=== PATIENT | female | born 1965 | race African-American/Black ===

== ENCOUNTER 2017-04-26 00:54 | Emergency (ER) | payer OTHER ==
[~2017-04-26 00:54] MED LIST: ALPR1TAB6 PO; BUPR-192 PO; ESCITALOPRAM OX10 MG PO; ESTR1TAB76 PO; HYDR25TA PO; LAMO100T PO; LEVO125T5 PO; OLME1TAB31 PO; ZIPR40CA3 PO; ZOLP12.54 PO
[2017-04-26 01:05] VITALS: BP 137/68
--- NOTE | 2017-04-26 02:01 | RAD ---
EXAM: CT head without contrast HISTORY: fall, hit back of head, headache COMPARISON: None. TECHNIQUE: Computed tomographic images of the head were obtained without contrast. PQRS compliance statement: One or more of the following individualized dose reduction techniques were utilized for this examination: 1. Automated exposure control 2. Adjustment of the mA and/or kV according to patient size 3. Use of iterative reconstruction technique FINDINGS: There is no acute intracranial process identified. Specifically, there are no intracranial blood products, extra-axial fluid collections, mass effect or midline shift. Ventricles and basilar cisterns are maintained. The visualized portions of the orbits, paranasal sinuses and mastoid air cells are unremarkable. Overlying scalp and calvarium are intact. A mildly heterogenous appearance of the calvarium is demonstrated, may be secondary to osteopenia. Subcentimeter lucent lesion seen within the left frontal calvarium. IMPRESSION: 1. No acute intracranial findings. 2. A subcentimeter lucent lesion is present in the left frontal calvarium. This may represent a benign or malignant lesion, or secondary to heterogeneity present which can be seen with osteopenia. Electronically signed by: Luciana Aguila MD (04/26/2017 1:57 AM)
--- NOTE | 2017-04-26 02:59 | PHYS DOC ---
Past History Past Medical History: Bipolar, Hypertension, Hypothyroid Past Surgical History: Smoking: Non-smoker Alcohol Use: None Drug Use: None Adult General Chief Complaint Chief Complaint: MECHANICAL FALL HPI HPI 51-year-old female now presents the emergency department after slipping and falling down some steps. She states she hit the back of her head. Mild headache since. No loss of consciousness. Normal painless range of motion of her neck. Patient states she also bumped her shoulder and that's been sore. Normal use of her upper extremities bilaterally and no other complaints. She does not take blood thinners and has no bone or bleeding problems Review of Systems Review of Systems Constitutional: Denies fever or chills [] Eyes: Denies change in visual acuity, redness, or eye pain [] HENT: Denies nasal congestion or sore throat [] Respiratory: Denies cough or shortness of breath [] Cardiovascular: No additional information not addressed in HPI [] GI: Denies abdominal pain, nausea, vomiting, bloody stools or diarrhea [] : Denies dysuria or hematuria [] Musculoskeletal: Denies back pain or joint pain [] Integument: Denies rash or skin lesions [] Neurologic: Denies headache, focal weakness or sensory changes [] Endocrine: Denies polyuria or polydipsia [] Allergies Allergies Allergies Coded Allergies Type Severity Reaction Last Updated Verified codeine Allergy Intermediate rash 05/11/14 No latex Allergy Intermediate rash 05/11/14 No Physical Exam Physical Exam Alert well appearing no acute distress. Normocephalic atraumatic. Normal TMs bilaterally nontender C-spine with normal painless range of motion. No scalp swelling or tenderness. Soft tissue tenderness left shoulder area however no bony tenderness deformity ecchymosis soft tissue swelling. No before meals tenderness. Nontender elbow and wrist with normal painless range of motion. No scapular bony tenderness and no crepitus or subcutaneous air Constitutional: Well developed, well nourished, no acute distress, non-toxic appearance. [] HENT: Normocephalic, atraumatic, bilateral external ears normal, oropharynx moist, no oral exudates, nose normal. [] Eyes: PERRLA, EOMI, conjunctiva normal, no discharge. [] Neck: Normal range of motion, no tenderness, supple, no stridor. [] Cardiovascular:Heart rate regular rhythm, no murmur [] Lungs & Thorax: Bilateral breath sounds clear to auscultation [] Abdomen: Bowel sounds normal, soft, no tenderness, no masses, no pulsatile masses. [] Skin: Warm, dry, no erythema, no rash. [] Back: No tenderness, no CVA tenderness. [] Extremities: No tenderness, no cyanosis, no clubbing, ROM intact, no edema. [] Neurologic: Alert and oriented X 3, normal motor function, normal sensory function, no focal deficits noted. [] Psychologic: Affect normal, judgement normal, mood normal. [] Current Patient Data Vital Signs Vital Signs Date Time Temp Pulse Resp B/P (MAP) Pulse Ox O2 Delivery O2 Flow Rate FiO2 04/26/17 01:05 98.2 96 20 94 Room Air EKG EKG [] Radiology/Procedures Radiology/Procedures [] Course & Med Decision Making Course & Med Decision Making Pertinent Labs and Imaging studies reviewed. (See chart for details) Signs and symptoms consistent with contusion left shoulder with negative x-ray. Normal use and range of motion. History and findings also consistent with minor head injury and CT of the head unremarkable. No evidence of concussion or postconcussive syndrome. Discussed with patient incidental finding of possible small left frontal mass and need for MRI in follow-up with PCP to rule out possibility of cancer or other etiology discussed with patient is unclear if there is a mass at all but that MRI is critical and ordered to determine this and specifically to rule out the possibility of cancer and patient agrees that outpatient follow-up and strict return precautions given [] Dragon Disclaimer Dragon Disclaimer This chart was dictated in whole or in part using Voice Recognition software in a busy, high-work load, and often noisy Emergency Department environment. It may contain unintended and wholly unrecognized errors or omissions. Departure Departure: Impression: Primary Impression: Minor head injury without loss of consciousness Additional Impressions: Contusion of left shoulder Intracranial mass Disposition: 01 HOME, SELF-CARE Condition: STABLE Referrals: SOPHIA GLOVER DO, [facility] (PCP) Patient Instructions: Contusion, Head Injury, Adult Additional Instructions: Her CAT scan of the head does not show any evidence of bleeding or fracture tonight. Resume incidental finding on your CAT scan of the head which suggested the possibility of a small mass in your left frontal brain area. It is important to follow up with your doctor to arrange an MRI to see if there is actually a mass there and if so, what the nature and extent of it it is. We've given you a copy of the CT result to follow up with your doctor to arranged this MRI with contrast as discussed. The x-ray of your left shoulder showed no fracture and your physical findings suggest a contusion or bruise of that area. Apply ice as needed and take ibuprofen 800 mg every 6 hours as needed for pain. Follow-up with your doctor in 1-2 days and return immediately for new severe or worsening symptoms Problem Qualifiers DAYLIN PENA MD Apr 26, 2017 02:59
--- NOTE | 2017-04-26 07:15 | RAD ---
Indication: Fall and left shoulder pain. Time of exam 0132 hours. 2 views of the left shoulder were obtained. The glenohumeral and acromioclavicular alignment are normal. The acromiohumeral space is normal. No fracture or dislocation is detected. Impression: No acute bony abnormality is detected.
== END 2017-04-26 03:13 | disposition home or self-care (01) ==
LOC: ER 00:54
DX: S09.8XXA Other specified injuries of head, initial encounter (principal); S40.012A Contusion of left shoulder, initial encounter; G93.89 Other specified disorders of brain; E03.9 Hypothyroidism, unspecified; I10 Essential (primary) hypertension; Z88.5 Allergy status to narcotic agent; Z91.040 Latex allergy status; W10.8XXA Fall (on) (from) other stairs and steps, initial encounter; Y93.89 Activity, other specified; Y99.8 Other external cause status; Y92.89 Other specified places as the place of occurrence of the external cause
CPT/HCPCS: 70450; 73030; 99284-25

== ENCOUNTER 2017-10-29 15:49 | Emergency (ER) | payer OTHER ==
[~2017-10-29] VITALS: Ht 175.3 cm; Wt 104.3 kg
--- NOTE | 2017-10-29 16:25 | ED.ADGEN ---
Past History Past Medical History: Bipolar, Hypertension, Hypothyroid (SARA LANDA DO) Past Surgical History: (SARA LANDA DO) Smoking: Non-smoker Alcohol Use: None Drug Use: None (SARA LANDA DO) Adult General Chief Complaint Chief Complaint Facial pain, cough, chest pressure (SARA LANDA DO) HPI HPI Patient is a 52-year-old -Greek female presents with nasal congestion , rhinorrhea, occasional cough and chest pressure. Symptoms began several days ago. Patient was seen by her PCP 2 days ago and office. Influenza test was performed at that time was negative. Patient has been taking [id number]-[id number] pain medication with limited proved symptoms. Denies tactile fever, nausea, vomiting, chills and sweats. no history of asthma, COPD, CAD, CHF. Patient is a nonsmoker. She is accompanied at bedside by spouse.[] (SARA LANDA DO) Review of Systems Review of Systems Review symptoms as per history of present illness. All other review symptoms are negative. [] All other systems were reviewed and found to be within normal limits, except as documented in this note. (SARA LANDA DO) Current Medications Current Medications Current Medications Medications (Trade) Dose Ordered Sig/Kristy Start Time Stop Time Status Last Admin Dose Admin Aspirin (Aspirin Enteric Coated) 325 mg 1X ONCE 10/29/17 17:45 10/29/17 17:46 DC 10/29/17 17:35 325 MG Hydromorphone HCl (Dilaudid) 1 mg 1X ONCE 10/29/17 19:30 10/29/17 19:31 DC 10/29/17 19:37 1 MG Iohexol (Omnipaque 300 Mg/ml) 75 ml 1X ONCE 10/29/17 19:00 10/29/17 19:01 DC 10/29/17 19:16 75 ML Nitroglycerin (Nitrostat) 0.4 mg 1X ONCE 10/29/17 17:45 10/29/17 17:46 DC 10/29/17 17:49 0.4 MG Oxycodone/ Acetaminophen (Percocet 10/325) 1 tab 1X ONCE 10/29/17 16:45 10/29/17 16:46 DC 10/29/17 16:29 1 TAB Sodium Chloride 1,000 ml @ 1,000 mls/hr 1X ONCE 10/29/17 18:45 10/29/17 19:44 DC 10/29/17 18:45 1,000 MLS/HR (ANGY LOWE MD) Allergies Allergies Allergies Coded Allergies Type Severity Reaction Last Updated Verified codeine Allergy Intermediate rash 05/11/14 No latex Allergy Intermediate rash 05/11/14 No (ANGY LOWE MD) Physical Exam Physical Exam Constitutional: Well developed, well nourished, no acute distress, non-toxic appearance. [] HENT: Normocephalic, atraumatic, frontal and maxillary sinus tenderness to palpation, bilateral external ears normal, oropharynx moist, no oral exudates, nose turbinate swelling, erythema. [] Eyes: PERRLA, EOMI, conjunctiva normal, no discharge. [] Neck: Normal range of motion, no tenderness, supple, no stridor. [] Cardiovascular:Heart rate regular rhythm, no murmur [] Lungs & Thorax: Bilateral breath sounds clear to auscultation, occasional rhonchi [] Abdomen: Bowel sounds normal, soft, no tenderness. [] Skin: Warm, dry, no erythema, no rash. [] Back: No tenderness, no CVA tenderness. [] Extremities: No tenderness, no cyanosis, no clubbing, ROM intact, no edema. [] Neurologic: Alert and oriented X 3, normal motor function, normal sensory function, no focal deficits noted. [] Psychologic: Affect normal, judgement normal, mood normal. [] (SARA LANDA DO) Current Patient Data Vital Signs Vital Signs Date Time Temp Pulse Resp B/P (MAP) Pulse Ox O2 Delivery O2 Flow Rate FiO2 10/29/17 19:39 74 16 140/82 (101) 98 Room Air 10/29/17 15:49 98.3 (ANGY LOWE MD) Lab Results Laboratory Tests Test 10/29/17 17:40 White Blood Count 5.1 x10^3/uL (4.0-11.0) Red Blood Count 4.23 x10^6/uL (3.50-5.40) Hemoglobin 11.7 g/dL (12.0-15.5) L Hematocrit 35.7 % (36.0-47.0) L Mean Corpuscular Volume 85 fL (79-100) Mean Corpuscular Hemoglobin 28 pg (25-35) Mean Corpuscular Hemoglobin Concent 33 g/dL (31-37) Red Cell Distribution Width 14.6 % (11.5-14.5) H Platelet Count 215 x10^3/uL (140-400) Neutrophils (%) (Auto) 67 % (31-73) Lymphocytes (%) (Auto) 22 % (24-48) L Monocytes (%) (Auto) 8 % (0-9) Eosinophils (%) (Auto) 3 % (0-3) Basophils (%) (Auto) 1 % (0-3) Neutrophils # (Auto) 3.4 x10^3uL (1.8-7.7) Lymphocytes # (Auto) 1.1 x10^3/uL (1.0-4.8) Monocytes # (Auto) 0.4 x10^3/uL (0.0-1.1) Eosinophils # (Auto) 0.1 x10^3/uL (0.0-0.7) Basophils # (Auto) 0.0 x10^3/uL (0.0-0.2) D-Dimer (Shagufta) 0.64 mg/L (0.00-0.50) H Sodium Level 142 mmol/L (136-145) Potassium Level 4.0 mmol/L (3.5-5.1) Chloride Level 106 mmol/L (98-107) Carbon Dioxide Level 31 mmol/L (21-32) Anion Gap 5 (6-14) L Blood Urea Nitrogen 12 mg/dL (7-20) Creatinine 1.3 mg/dL (0.6-1.0) H Estimated GFR (Cockcroft-Gault) 52.5 BUN/Creatinine Ratio 9 (6-20) Glucose Level 85 mg/dL (70-99) Calcium Level 8.5 mg/dL (8.5-10.1) Total Bilirubin 0.3 mg/dL (0.2-1.0) Aspartate Amino Transferase (AST) 10 U/L (15-37) L Alanine Aminotransferase (ALT) 23 U/L (14-59) Alkaline Phosphatase 109 U/L (46-116) Troponin I Quantitative < 0.017 ng/mL (0-0.055) YP-Gli-K-Type Natriuretic Peptide 215 pg/mL (0-124) H Total Protein 7.0 g/dL (6.4-8.2) Albumin 3.1 g/dL (3.4-5.0) L Albumin/Globulin Ratio 0.8 (1.0-1.7) L (ANGY LOWE MD) Lab Results Laboratory Tests Test 10/29/17 17:40 White Blood Count 5.1 x10^3/uL (4.0-11.0) Red Blood Count 4.23 x10^6/uL (3.50-5.40) Hemoglobin 11.7 g/dL (12.0-15.5) L Hematocrit 35.7 % (36.0-47.0) L Mean Corpuscular Volume 85 fL (79-100) Mean Corpuscular Hemoglobin 28 pg (25-35) Mean Corpuscular Hemoglobin Concent 33 g/dL (31-37) Red Cell Distribution Width 14.6 % (11.5-14.5) H Platelet Count 215 x10^3/uL (140-400) Neutrophils (%) (Auto) 67 % (31-73) Lymphocytes (%) (Auto) 22 % (24-48) L Monocytes (%) (Auto) 8 % (0-9) Eosinophils (%) (Auto) 3 % (0-3) Basophils (%) (Auto) 1 % (0-3) Neutrophils # (Auto) 3.4 x10^3uL (1.8-7.7) Lymphocytes # (Auto) 1.1 x10^3/uL (1.0-4.8) Monocytes # (Auto) 0.4 x10^3/uL (0.0-1.1) Eosinophils # (Auto) 0.1 x10^3/uL (0.0-0.7) Basophils # (Auto) 0.0 x10^3/uL (0.0-0.2) D-Dimer (Shagufta) 0.64 mg/L (0.00-0.50) H Sodium Level 142 mmol/L (136-145) Potassium Level 4.0 mmol/L (3.5-5.1) Chloride Level 106 mmol/L (98-107) Carbon Dioxide Level 31 mmol/L (21-32) Anion Gap 5 (6-14) L Blood Urea Nitrogen 12 mg/dL (7-20) Creatinine 1.3 mg/dL (0.6-1.0) H Estimated GFR (Cockcroft-Gault) 52.5 BUN/Creatinine Ratio 9 (6-20) Glucose Level 85 mg/dL (70-99) Calcium Level 8.5 mg/dL (8.5-10.1) Total Bilirubin 0.3 mg/dL (0.2-1.0) Aspartate Amino Transferase (AST) 10 U/L (15-37) L Alanine Aminotransferase (ALT) 23 U/L (14-59) Alkaline Phosphatase 109 U/L (46-116) Troponin I Quantitative < 0.017 ng/mL (0-0.055) VT-Upc-K-Type Natriuretic Peptide 215 pg/mL (0-124) H Total Protein 7.0 g/dL (6.4-8.2) Albumin 3.1 g/dL (3.4-5.0) L Albumin/Globulin Ratio 0.8 (1.0-1.7) L (SARA LANDA DO) EKG EKG [EKG: Normal sinus rhythm, rate 74, no acute ST-T wave changes, LVH, inferior Q waves] (SARA LANDA DO) Radiology/Procedures Radiology/Procedures [Chest XR: pulmonary vascular congestion] (SARA LANDA DO) Radiology/Procedures [address] [place] [id number] IMAGING REPORT Signed PATIENT: BEN BILLINGS ACCOUNT: [id number] : 1965 LOCATION: ER AGE: 52 SEX: F EXAM STATUS: REG ER ORD. PHYSICIAN: ANGY LOWE MD REASON: pe protocol PROCEDURE: CT ANGIOGRAPHY CHEST CTA chest with contrast 10/29/2017 CLINICAL INDICATION: Cough and chest pain. Sternal pressure. COMPARISON: None. TECHNIQUE: Multiple CTA images of the chest were obtained following the intravenous administration of 60 mL Omnipaque 300. MIPS were obtained of the chest. *One or more of the following individualized dose reduction techniques were utilized for this examination: 1. Automated exposure control. 2. Adjustment of the mA and/or kV according to patient size. 3. Use of iterative reconstruction technique. FINDINGS: CTA CHEST: Mild cardiomegaly without significant pericardial effusion. The thoracic aorta is normal in caliber with mild calcified atheromatous disease. No central or major segmental pulmonary artery filling defect to suggest pulmonary embolism. RV/LV ratio is less than 1. No axillary or mediastinal lymphadenopathy. There is mild right hilar lymphadenopathy measuring 1.4 cm series 4/image 49. There is a air-filled patulous esophagus to the GE junction with a small hiatal hernia. The central airways are patent. There is mild central peribronchial thickening. Mild subsegmental atelectasis in the lung bases. There is a 0.3 cm linear subpleural noncalcified nodule in the right middle lobe considered benign in the absence of known or suspected malignancy. There is a trace left pleural effusion. There are no destructive osseous lesions. Limited images of the upper abdomen: Prior cholecystectomy. Postsurgical changes of the proximal stomach. IMPRESSION: 1. No CT evidence of pulmonary embolism. 2. Mild central peribronchial thickening which may be due to nonspecific bronchitis. 3. Trace left pleural effusion. Electronically signed by: Nyla Car MD (10/29/2017 8:03 PM) [facility] [place] DICTATED AND SIGNED BY: NYLA CAR MD DATE: 10/29/171955 CC: ANGY LOWE MD; SOPHIA GLOVER DO, M[facility] ~ (ANGY LOWE MD) Course & Med Decision Making Course & Med Decision Making Pertinent Labs and Imaging studies reviewed. (See chart for details) [Patient with nondescript upper respiratory tract symptoms with chest pressure.EKG nonacute, chest x-ray shows pulmonary vascular congestion. Cardiac labs ordered and pending. Aspirin and nitroglycerin given without relief of chest pressure. Care endorsed oncoming ERP at 1800.] (SARA LANDA DO) Course & Med Decision Making Patient is a 52-year-old -Greek female presents with nasal congestion , rhinorrhea, occasional cough and chest pressure. Symptoms began several days ago. Patient was seen by her PCP 2 days ago and office. Influenza test was performed at that time was negative. Patient has been taking btor-xck-sitsxdg pain medication with limited proved symptoms. Denies tactile fever, nausea, vomiting, chills and sweats. no history of asthma, COPD, CAD, CHF. Patient is a nonsmoker. She is accompanied at bedside by spouse. I reviewed the history and physical exam findings documented as well as the buttock vital signs and the blood work. Patient originally was coming in for cough and shortness of breath and chest pressure. Physician performing was worried about congestive heart failure based on question of cephalization on chest x-ray. Patient's proBNP is only 200, patient's d-dimer is also elevated 0.64 and elevated creatinine of 1.3. Patient received a liter of fluids here in the emergency department I will need to complete a CT angios the chest to ensure that her cough or shortness of breath is not associated with a pulmonary embolism or infiltrate. I will pass this information along with the family time is now 6:45 PM Time is 8:[address] angios the chest is back demonstrates signs of bronchitis with mild pleural effusion no congestive heart failure no pulmonary infiltrate no pulmonary embolism Differential diagnosis: Acute myocardial ischemia, heart failure, cardiac tamponade, bronchospasm, pulmonary embolism, pneumothorax, pulmonary infection i.e. bronchitis or pneumonia, upper airway obstruction, anaphylaxis, aspiration , psychogenic, pulmonary contusion, toxidrome, pneumomediastinum, noncardiogenic pulmonary edema or ARDS, COPD, tuberculosis, cystic fibrosis, asthma, high altitude pulmonary edema, valvular dysfunction, cardiac dysrhythmia , stroke, neuromuscular diseases like myasthenia gravis gravis, ALS, Guillain- Hutchinson syndrome, metabolic acidosis to include diabetic ketoacidosis, sepsis, and obstructive disorders like massive obesity was considered today She feels better and asked to go homedischarge: I've spoken with the patient and/or caregivers. I've explained the patient's condition, diagnosis and treatment plan based on information available to me at this time. I've answered the patient's and/or caregivers questions and addressed any concerns. The patient and/or caregivers have a good understanding the patient's diagnosis, condition and treatment plan as can be expected at this point. Vital signs have been stabilized. The patient's condition is stable for discharge from the emergency department. The patient will pursue further outpatient evaluation with her primary care provider or other designated consulting physician as outlined in the discharge instructions. Patient and/or caregivers are agreeable to this plan of care and follow-up instructions have been explained in detail. The patient and/or caregivers have received these instructions in written format and expressed understanding of these discharge instructions. The patient and her caregivers are aware that if any significant change in condition or worsening of symptoms should prompt him to immediately return to this of the closest emergency department. If an emergent department is not readily available I would encourage him to call 911. (ANGY LOWE MD) Final Impression Final Impression [1. Sinusitis 2. Chest pressure] Problems: (SARA LANDA DO) Final Impression Bronchitis, chest pain, URI Problems: (ANGY LOWE MD) Dragon Disclaimer Dragon Disclaimer This electronic medical record was generated, in whole or in part, using a voice recognition dictation system. (SARA LANDA DO) SARA LANDA DO Oct 29, 2017 16:25 ANGY LOWE MD Oct 29, 2017 18:46
--- NOTE | 2017-10-29 16:26 | EKG ---
[address] [address] Test Date: 2017-10-29 Test Time: 16:23:33 Pat Name: BEN BILLINGS Department: Room: Gender: F Political Reporter: KENNY : 1965 Requested By: SARA LANDA Order Number: [id number] Reading MD: Kieran Dutton Measurements Intervals [place] Rate: 74 P: 24 MT: 172 QRS: -15 QRSD: 82 T: 12 QT: 410 QTc: 456 Interpretive Statements SINUS RHYTHM LEFTWARD AXIS CONSIDER LEFT VENTRICULAR HYPERTROPHY QRS(T) CONTOUR ABNORMALITY CONSIDER ANTEROSEPTAL MYOCARDIAL DAMAGE POSSIBLY ABNORMAL ECG Electronically Signed On 11-03-2017 10:49:24 CAPONIZER by Kieran Dutton
[2017-10-29] MEDS ORDERED: oxyCODONE/APAP 10/325 1 TAB TABLET PO ONE (16:45)
[2017-10-29] MEDS ORDERED: NITROGLYCERIN SUBLINGUAL 0.4 MG BOTTLE OF 25. SL ONE (17:45)
[2017-10-29] MEDS ORDERED: ASPIRIN ENTERIC COATED 325 MG TABLET.DR. PO ONE (17:45)
[2017-10-29 18:12] LABS: BASO % 1 % (0-3); EOS # 0.1 x10^3/uL (0.0-0.7); EOS % 3 % (0-3); HEMATOCRIT 35.7 % (36.0-47.0); HEMOGLOBIN 11.7 g/dL (12.0-15.5); LYMPH # 1.1 x10^3/uL (1.0-4.8); LYMPH % 22 % (24-48); MEAN CORPUSCULAR HEMOGLOBIN 28 pg (25-35); MEAN CORPUSCULAR HGB CONC 33 g/dL (31-37); MEAN CORPUSCULAR VOLUME 85 fL (79-100); MONO # 0.4 x10^3/uL (0.0-1.1); MONO % 8 % (0-9); NEUT # 3.4 x10^3uL (1.8-7.7); NEUT % 67 % (31-73); PLATELET COUNT 215 x10^3/uL (140-400); RED BLOOD COUNT 4.23 x10^6/uL (3.50-5.40); RED CELL DISTRIBUTION WIDTH 14.6 % (11.5-14.5); WHITE BLOOD COUNT 5.1 x10^3/uL (4.0-11.0)
[2017-10-29 18:20] LABS: ALBUMIN 3.1 g/dL (3.4-5.0); ALBUMIN/GLOBULIN RATIO 0.8 (1.0-1.7); CALCIUM 8.5 mg/dL (8.5-10.1); CREATININE 1.3 mg/dL (0.6-1.0); GFR 52.5; TOTAL BILIRUBIN 0.3 mg/dL (0.2-1.0)
[2017-10-29] MEDS ORDERED: IV NORMAL SALINE 1,000ML 1,000 ML IV ONE (18:45)
[2017-10-29] MEDS ORDERED: IOHEXOL 300 MG/ML 75 ML VIAL. IV ONE (19:00)
[2017-10-29] MEDS ORDERED: HYDROmorphone PF 1 MG/ML DISP.SYRIN IV ONE (19:30)
--- NOTE | 2017-10-29 20:07 | RAD ---
CTA chest with contrast 10/29/2017 CLINICAL INDICATION: Cough and chest pain. Sternal pressure. COMPARISON: None. TECHNIQUE: Multiple CTA images of the chest were obtained following the intravenous administration of 60 mL Omnipaque 300. MIPS were obtained of the chest. *One or more of the following individualized dose reduction techniques were utilized for this examination: 1. Automated exposure control. 2. Adjustment of the mA and/or kV according to patient size. 3. Use of iterative reconstruction technique. FINDINGS: CTA CHEST: Mild cardiomegaly without significant pericardial effusion. The thoracic aorta is normal in caliber with mild calcified atheromatous disease. No central or major segmental pulmonary artery filling defect to suggest pulmonary embolism. RV/LV ratio is less than 1. No axillary or mediastinal lymphadenopathy. There is mild right hilar lymphadenopathy measuring 1.4 cm series 4/image 49. There is a air-filled patulous esophagus to the GE junction with a small hiatal hernia. The central airways are patent. There is mild central peribronchial thickening. Mild subsegmental atelectasis in the lung bases. There is a 0.3 cm linear subpleural noncalcified nodule in the right middle lobe considered benign in the absence of known or suspected malignancy. There is a trace left pleural effusion. There are no destructive osseous lesions. Limited images of the upper abdomen: Prior cholecystectomy. Postsurgical changes of the proximal stomach. IMPRESSION: 1. No CT evidence of pulmonary embolism. 2. Mild central peribronchial thickening which may be due to nonspecific bronchitis. 3. Trace left pleural effusion. Electronically signed by: Elton Car MD (10/29/2017 8:03 PM) [facility]
[2017-10-29] MEDS ORDERED: NAPR-683 PO (20:32)
[2017-10-29] MEDS ORDERED: GUAI1TBM10 PO (20:32)
[2017-10-29] MEDS ORDERED: ALBU6.7H IH (20:32)
[2017-10-29] MEDS ORDERED: AZIT250T6 PO (20:32)
[2017-10-29 20:45] VITALS: BP 128/67
[2017-10-29] MEDS ORDERED: FLUC150T PO (20:52)
[2017-10-29] MEDS ORDERED: AZITHROMYCIN 250 MG TABLET. PO ONE (21:15)
--- NOTE | 2017-10-30 10:15 | RAD ---
CHEST PA LATERAL Clinical Indication: CP Comparison: Chest radiograph dated 07/21/2009. Findings: Low lung volume. No focal consolidations. Right midlung zone and left lower lung zone linear opacities likely related to atelectasis or scarring. Normal pulmonary vasculature. No pleural effusion or pneumothorax. Borderline cardiomegaly. Tortuous and mildly atherosclerotic thoracic aorta. No acute osseous abnormality. Cholecystectomy. IMPRESSION: 1. No focal consolidations. 2. Borderline cardiomegaly.
[2017-11-04] MEDS ORDERED: LEVO500T59 PO (12:33)
[2017-11-04] MEDS ORDERED: OXYC5CAP PO (12:33)
== END 2017-10-29 20:56 | disposition home or self-care (01) ==
LOC: ER 15:49
DX: J01.90 Acute sinusitis, unspecified (principal); R07.89 Other chest pain; J40 Bronchitis, not specified as acute or chronic; E03.9 Hypothyroidism, unspecified; I10 Essential (primary) hypertension; F31.9 Bipolar disorder, unspecified; Z88.5 Allergy status to narcotic agent; Z91.040 Latex allergy status
CPT/HCPCS: 36415; 71275; 80053; 83880; 84484; 85025; 85379; 93005; 96361; 96374; 99285; J1170; Q9967; J7030

== ENCOUNTER 2017-10-31 15:53 | Inpatient (IN) | payer OTHER ==
[~2017-10-31] VITALS: Ht 175.3 cm; Wt 110.8 kg
[~2017-10-31 15:53] MED LIST changes: +ALBU6.7H IH; +AZIT250T6 PO; +FLUC150T PO; +GUAI1TBM10 PO; +NAPR-683 PO
--- NOTE | 2017-10-31 16:07 | PHYS DOC ---
Past History Past Medical History: Bipolar, Hypertension, Hypothyroid Past Surgical History: Smoking: Non-smoker Alcohol Use: None Drug Use: None Adult General Chief Complaint Chief Complaint: SHORTNESS OF BREATH HPI HPI Patient is a 52-year-old female presenting to the emergency department for evaluation of worsening cough shortness of breath and pain. She says that she is having fevers and chills. Her pain is mostly along her left posterior ribs. Cough is productive of bloody sputum. Patient was seen in the emergency department here 2 days ago and had negative CT angiogram for pulmonary embolus him after blood work was rather unremarkable. She was sent home with Tylenol Zithromax albuterol but she says she is getting worse. Review of Systems Review of Systems Constitutional: + fever, chills [] Eyes: Denies change in visual acuity, redness, or eye pain [] HENT: Denies nasal congestion or sore throat [] Respiratory: + cough, shortness of breath [] Cardiovascular: No additional information not addressed in HPI [] GI: Denies abdominal pain, nausea, vomiting, bloody stools or diarrhea [] : Denies dysuria or hematuria [] Musculoskeletal: Denies back pain or joint pain [] Integument: Denies rash or skin lesions [] Neurologic: Denies headache, focal weakness or sensory changes [] All other systems were reviewed and found to be within normal limits, except as documented in this note. Allergies Allergies Allergies Coded Allergies Type Severity Reaction Last Updated Verified codeine Allergy Intermediate rash 05/11/14 No latex Allergy Intermediate rash 05/11/14 No Physical Exam Physical Exam Constitutional: Well developed, well nourished, no acute distress, non-toxic appearance. [] HENT: Normocephalic, atraumatic, bilateral external ears normal, oropharynx moist, no oral exudates, nose normal. [] Eyes: PERRLA, EOMI, conjunctiva normal, no discharge. [] Neck: Normal range of motion, no tenderness, supple, no stridor. [] Cardiovascular:Heart rate regular rhythm, no murmur [] Lungs & Thorax: Bilateral breath sounds with rhonchi and expiratory wheezes noted Abdomen: Bowel sounds normal, soft, no tenderness, no masses, no pulsatile masses. [] Skin: Warm, dry, no erythema, no rash. [] Back: No tenderness, no CVA tenderness. [] Extremities: No tenderness, no cyanosis, no clubbing, ROM intact, no edema. [] Neurologic: Alert and oriented X 3, normal motor function, normal sensory function, no focal deficits noted. [] EKG EKG [] Radiology/Procedures Radiology/Procedures INDICATION: SOA COMPARISON: 10/29/2017 FINDINGS: Single view of chest obtained. Patchy opacity in the right mid to lower lung. Cardiac silhouette is again mildly prominent but could be from portable technique. IMPRESSION: Patchy opacity in the right mid to lower lung. Could be from infectious etiology with other causes such as aspiration within the differential. Neoplastic causes would be considered less likely given that this was not present on 10/29/2017 DICTATED AND SIGNED BY: YING LÓPEZ MD DATE: 10/31/17 1019 Course & Med Decision Making Course & Med Decision Making Patient does not appear toxic but she feels that she is getting worse and she is have slightly worsening leukocytosis with an opacity starting to be seen on chest x-ray that was not there 2 days ago. Given patient is getting worse with new finding she'll be admitted for further IV antibiotics observation and treatment. Dragon Disclaimer Dragon Disclaimer This electronic medical record was generated, in whole or in part, using a voice recognition dictation system. Departure Departure: Impression: Primary Impression: CAP (community acquired pneumonia) Additional Impressions: Dyspnea Leukocytosis Disposition: 09 ADMITTED INPATIENT Admitting Physician: Wm Lopez Condition: STABLE Referrals: SOPHIA GLVOER DO, [facility] (PCP) Problem Qualifiers Primary Impression: CAP (community acquired pneumonia) Laterality: right Lung location: middle lobe of lung Qualified Codes: J18.1 - Lobar pneumonia, unspecified organism TOSHIA BUNCH DO Oct 31, 2017 16:07
[2017-10-31] MEDS ORDERED: oxyCODONE/APAP 5/325 1 TAB TABLET PO ONE (16:15)
[2017-10-31] MEDS ORDERED: DEXAMETHASONE SOD PHOS 10 MG/ML VIAL IV ONE (16:15)
[2017-10-31] MEDS ORDERED: IPRATRPIUM/ALBUTEROL 0.5/2.5MG 3 ML NEBU. NEB ONE (16:15)
[2017-10-31] MEDS: KETOROLAC 30 MG/ML VIAL. IV ONE ×2 (16:15→16:52)
[2017-10-31] MEDS ORDERED: IPRATRPIUM/ALBUTEROL 0.5/2.5MG 3 ML NEBU. ONE (16:16)
[2017-10-31 17:29] LABS: BASO % 0 % (0-3); EOS % 0 % (0-3); HEMATOCRIT 38.4 % (36.0-47.0); HEMOGLOBIN 12.2 g/dL (12.0-15.5); LYMPH # 0.6 x10^3/uL (1.0-4.8); LYMPH % 5 % (24-48); MEAN CORPUSCULAR HEMOGLOBIN 27 pg (25-35); MEAN CORPUSCULAR HGB CONC 32 g/dL (31-37); MEAN CORPUSCULAR VOLUME 85 fL (79-100); MONO # 0.5 x10^3/uL (0.0-1.1); MONO % 4 % (0-9); NEUT # 11.5 x10^3uL (1.8-7.7); NEUT % 91 % (31-73); PLATELET COUNT 236 x10^3/uL (140-400); RED BLOOD COUNT 4.55 x10^6/uL (3.50-5.40); RED CELL DISTRIBUTION WIDTH 14.5 % (11.5-14.5); WHITE BLOOD COUNT 12.6 x10^3/uL (4.0-11.0)
--- NOTE | 2017-10-31 17:29 | RAD ---
INDICATION: SOA COMPARISON: 10/29/2017 FINDINGS: Single view of chest obtained. Patchy opacity in the right mid to lower lung. Cardiac silhouette is again mildly prominent but could be from portable technique. IMPRESSION: Patchy opacity in the right mid to lower lung. Could be from infectious etiology with other causes such as aspiration within the differential. Neoplastic causes would be considered less likely given that this was not present on 10/29/2017
[2017-10-31] MEDS ORDERED: HYDROmorphone PF 2 MG/ML VIAL IV PRN (17:45)
[2017-10-31] MEDS ORDERED: ONDANSETRON PF 4 MG/2 ML VIAL. IV PRN (17:45)
[2017-10-31 17:46] LABS: ALBUMIN 3.4 g/dL (3.4-5.0); ALBUMIN/GLOBULIN RATIO 0.8 (1.0-1.7); CALCIUM 8.6 mg/dL (8.5-10.1); CREATININE 1.2 mg/dL (0.6-1.0); GFR 57.5; MAGNESIUM 1.5 mg/dL (1.8-2.4); POTASSIUM 3.4 mmol/L (3.5-5.1); TOTAL BILIRUBIN 0.4 mg/dL (0.2-1.0); TOTAL PROTEIN 7.6 g/dL (6.4-8.2)
[2017-10-31 18:40] VITALS: BP 121/86
[2017-10-31] MEDS ORDERED: FOLI1TAB16 PO (19:56)
[2017-10-31] MEDS ORDERED: LOSA1TAB19 PO (19:56)
[2017-10-31] MEDS ORDERED: ZIPR80CA2 PO (19:56)
[2017-10-31] MEDS ORDERED: CLON0.5T3 PO (19:56)
[2017-10-31] MEDS ORDERED: LEVO100T5 PO (19:56)
[2017-10-31] MEDS ORDERED: BUPR300T3 PO (19:56)
[2017-10-31] MEDS ORDERED: LAMO100T5 PO (19:56)
[2017-10-31] MEDS ORDERED: TRAZ-90 PO (19:56)
[2017-10-31] MEDS ORDERED: SERT100T PO (19:56)
[2017-10-31] MEDS ORDERED: ZOLP12.52 PO (19:56)
[2017-10-31] MEDS: POTASSIUM CL 20MEQ D5-0.45NACL 1,000 ML IV SCH (21:10)
[2017-10-31] MEDS: clonazePAM 0.5 MG TABLET PO SCH (21:11)
[2017-10-31] MEDS: traZODone 100 MG TABLET. PO PRN (21:12)
[2017-10-31] MEDS: LACTOBACILLUS RHAMNOSUS GG 1 CAPSULE. PO SCH (21:13)
[2017-10-31] MEDS: ZIPRASIDONE 80 MG CAPSULE. PO SCH (22:10)
[2017-10-31 23:24] VITALS: BP 156/83
[2017-11-01] MEDS: ZOLPIDEM 5 MG TABLET. PO PRN ×2 (00:03→21:14)
[2017-11-01] MEDS: LEVOTHYROXINE 100 MCG TABLET PO SCH (05:25)
[2017-11-01] MEDS: ALBUTEROL SULFATE 2.5 MG/3 ML NEBU. NEB PRN ×3 (05:31→19:42)
[2017-11-01 05:34] VITALS: BP 146/93
[2017-11-01 07:10] LABS: CALCIUM 8.8 mg/dL (8.5-10.1); CREATININE 1.3 mg/dL (0.6-1.0); GFR 52.5
[2017-11-01 07:19] LABS: BASO % 0 % (0-3); EOS % 0 % (0-3); HEMATOCRIT 39.3 % (36.0-47.0); HEMOGLOBIN 12.8 g/dL (12.0-15.5); LYMPH % 4 % (24-48); MEAN CORPUSCULAR HEMOGLOBIN 28 pg (25-35); MEAN CORPUSCULAR HGB CONC 33 g/dL (31-37); MEAN CORPUSCULAR VOLUME 85 fL (79-100); MONO # 0.3 x10^3/uL (0.0-1.1); MONO % 2 % (0-9); NEUT # 21.9 x10^3uL (1.8-7.7); NEUT % 94 % (31-73); PLATELET COUNT 251 x10^3/uL (140-400); RED BLOOD COUNT 4.64 x10^6/uL (3.50-5.40); RED CELL DISTRIBUTION WIDTH 14.9 % (11.5-14.5); WHITE BLOOD COUNT 23.3 x10^3/uL (4.0-11.0)
[2017-11-01] MEDS ORDERED: IV NORMAL SALINE 500ML 500 ML IV ONE ×2 (08:00→09:00)
[2017-11-01] MEDS: hydroCHLOROthiazide 12.5 MG CAPSULE PO SCH (08:01)
[2017-11-01] MEDS: LOSARTAN 50 MG TABLET. PO SCH (08:01)
[2017-11-01] MEDS: FOLIC ACID 1 MG TABLET PO SCH (08:02)
[2017-11-01] MEDS: clonazePAM 0.5 MG TABLET PO SCH ×3 (08:02→21:14)
[2017-11-01] MEDS: LACTOBACILLUS RHAMNOSUS GG 1 CAPSULE. PO SCH ×2 (08:02→21:14)
[2017-11-01] MEDS: lamoTRIgine 100 MG TABLET. PO SCH (08:03)
[2017-11-01 08:32] LABS: % BANDS 2 % (0-9); % LYMPHS 8 % (24-48); % MONOS 2 % (0-10); % SEGS 88 % (35-66); ANISOCYTOSIS SLIGHT; HYPOCHROMIA SLIGHT; PLT ESTIMATE ADEQUATE (ADEQUATE)
[2017-11-01] MEDS ORDERED: ZIPRASIDONE 80 MG CAPSULE. PO SCH (09:00)
[2017-11-01] MEDS ORDERED: SERTRALINE 100 MG TABLET. PO SCH (09:00)
[2017-11-01] MEDS ORDERED: buPROPion XL 300 MG TAB.ER.24H. PO SCH (09:00)
[2017-11-01 09:53] VITALS: BP 161/90
[2017-11-01] MEDS: POTASSIUM CL 20MEQ D5-0.45NACL 1,000 ML IV SCH ×2 (12:07)
[2017-11-01] MEDS: HYDROmorphone PF 2 MG/ML VIAL IV PRN ×2 (14:36→19:42)
[2017-11-01] MEDS ORDERED: MEROPENEM IV Push 1 GM VIAL. IVP SCH (15:00)
[2017-11-01] MEDS ORDERED: MEROPENEM IV Push 500 MG VIAL. IVP SCH (15:00)
--- NOTE | 2017-11-01 15:04 | HP ---
ADMIT DATE: 10/31/2017 HISTORY OF PRESENT ILLNESS: The patient is a 52-year-old -Spanish female patient who apparently started complaining of cough with chest tightness for which she was seen initially at [facility] and at that time, she was started on Afrin nasal spray, Robitussin-DM and Tylenol without much improvement. Two days ago, she came to the Emergency Room of [facility] where she was started on Z-ANDREW, inhalers, ibuprofen and Diflucan without much improvement and she continued to have cough with blood-tinged sputum. She also had a chest pain that is aggravated by taking a deep breath and chest tightness and was evaluated in the Emergency Room, was found to have leukocytosis and pneumonia, and was admitted for inpatient treatment. PAST MEDICAL HISTORY: Significant for hypertension, hypothyroidism, osteoarthritis, bipolar disorder and what seemed to be some form of partial seizures. PAST SURGICAL HISTORY: Significant for thyroidectomy for malignant thyroid tumor, , arthroscopic left knee surgery 6 years ago for torn meniscus, cholecystectomy, esophagogastroduodenoscopy and colonoscopy. ALLERGIES: LATEX AND CODEINE. MEDICATIONS: She is currently on following medications: She is on albuterol sulfate 1-2 puffs every 4 hours as needed, Wellbutrin-XL 300 mg daily, clonazepam 0.5 mg t.i.d., fluconazole 150 mg p.o. once, folic acid 1 mg once a day, lamotrigine 350 mg daily, levothyroxine sodium 200 mcg once a day, losartan/hydrochlorothiazide 50/12.5 mg once a day, sertraline 200 mg daily, trazodone 200 mg at bedtime, ziprasidone for Geodon 80 mg daily, and Ambien 12.5 mg at bedtime. FAMILY HISTORY: She has 2 sisters, younger one of them has hypertension and diabetes, and the other is known to have hypertension. Her mother is still alive at the age of 67 and is known to have osteoarthritis, hypothyroidism, seizure disorder and senile macular degeneration. Her father at the age of 65 and is known to have heart disease, diabetes and schizophrenia. SOCIAL HISTORY: She is , has 1 son and 4 daughters. She never smoked, does not drink alcohol. 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 REVIEW OF SYSTEMS: The patient denied any blurring of vision, cataract, glaucoma or macular degeneration. She has bilateral hearing aids. Denied any stuffy nose or postnasal drip. Denied any sore throat, sore tongue, toothache, hoarseness of voice or difficulty swallowing. Did complain of nausea, but no vomiting. Denied any diarrhea or constipation. Denied any hematemesis, melena or hematochezia. Denied any dysuria, frequency or hematuria. Did complain of chest pain, shortness of breath, and cough with blood-tinged sputum. Denied any chills, rigors, or fever. PHYSICAL EXAMINATION: VITAL SIGNS: On arrival to the Emergency Room, her heart rate was 99, blood pressure was 121/86, temperature was 99.1, respiratory rate 20, and oxygen saturation was 92%. In fact, when she came, her oxygen saturation was only 69% on room air. HEAD, EYES, EARS, NOSE AND THROAT: Showed normocephalic and atraumatic. NECK: Supple. HEART: Showed normal first and second heart sounds with no gallop, rub or murmur. CHEST: Shows central trachea, equal bilateral chest expansion, air entry, vesicular breath sounds with crepitation mostly on the right side posteriorly. I could not appreciate any wheezing. ABDOMEN: Distended, soft, nontender. No guarding or rigidity. No organomegaly. Hernial orifice intact and bowel sounds normal. NEUROLOGIC: She is awake, alert, responding appropriately. Cranial nerves intact. EXTREMITIES: She moves extremities without difficulty. She normally ambulates without assistance or assistive devices. LABORATORY DATA: On arrival to the Emergency Room showed a serum sodium 139, potassium 3.4, chloride 102, bicarbonate 28, anion gap of 9, BUN 12, creatinine 1.2, estimated GFR was 57 mL per minute. Her glucose was 87, calcium was 8.6, magnesium was 1.5. Total bilirubin, AST, ALT were normal. Alkaline phosphatase slightly elevated. CK was 44, beta natriuretic peptide was 579. Total protein was 7.6, albumin was 3.4. Her white cell count was 12,600, hemoglobin 12, hematocrit 38, MCV 85 and platelet count of 236,000. Her chest x-ray showed that there is patchy opacity in the right mid to lower lung. This could be from infectious etiology with other cause such as aspiration within differential and neoplastic causes could be considered less likely given that this was not present on 10/29/2017. IMPRESSION AND PLAN: In summary, this is a 52-year-old -Spanish female patient who came for the third time to the Emergency Room with increasing shortness of breath and cough with blood-tinged sputum. Chest x-ray showed that she has pneumonia. She was treated 2 days ago with Z-ANDREW without much improvement and was admitted, was started on IV levofloxacin and continued all other medications, continued IV fluid. She has also lactic acidosis that has improved this morning from ____. We will continue with all her medications, continue with IV levofloxacin, IV fluid and repeat all her lab work and decide further management accordingly. EDWIN CALLES MD DR: AKHIL/cherrie JOB#: [id number] / [id number]
[2017-11-01 15:53] VITALS: BP 121/69
--- NOTE | 2017-11-01 16:15 | RAD ---
CT of the chest without contrast, 11/01/2017: History: Worsening shortness of breath Noncontrast scans were obtained and compared to a study from 10/29/2017. Patchy pulmonary opacities have developed in the right parahilar region. This represents a combination of streaky, groundglass and tree-in-bud opacities. The pattern suggests pneumonia. On the left there are streaky opacities in the posterior costophrenic angle and in the inferior lingular region compatible with atelectasis. These have worsened slightly. There appears to be a trace amount of left-sided pleural fluid. The heart is generally enlarged. There is mild calcific plaquing of the thoracic aorta without evidence of aneurysm. No mediastinal adenopathy is seen. IMPRESSION: 1. Patchy right parahilar infiltrates have developed suggesting pneumonia. Pulmonary edema is less likely. 2. Worsening mild to moderate streaky left basilar atelectasis and/or pneumonitis. 3. Tiny left pleural effusion. PQRS Compliance Statement: One or more of the following individualized dose reduction techniques were utilized for this examination: 1. Automated exposure control 2. Adjustment of the mA and/or kV according to patient size 3. Use of iterative reconstruction technique
[2017-11-01] MEDS: MEROPENEM 500 MG in IV NORMAL SALINE 50ML 50 ML IV SCH (18:29)
--- NOTE | 2017-11-01 18:32 | PDOC2 ---
CARDIAC CONSULT DATE OF CONSULT Date Of Consult DATE: 11/01/17 TIME: 18:12 REASON FOR CONSULT Reason for Consult soa REFERRING PHYSICIAN Referring Physician amelia SOURCE Source: Patient HPI History of Present Illness 52-year-old woman who comes into the hospital with persistent shortness of breath and cough. She was evaluated last few days a couple times to the ER and diagnosed with bronchitis and/or pneumonia. Oral antibiotics have not relieved her symptoms. Denies any exertional angina prior to admission. No symptoms of syncope or palpitations. She does have classic pleuritic chest pain. No prior episodes of cardiac issues. Denies any recent medications or stressors. PAST MEDICAL HISTORY Cardiovascular: HTN Pulmonary: No pertinent hx GI: No pertinent hx Heme/Onc: No pertinent hx Psych: Bipolar FAMILY HISTORY Family History No significant early arthroscopic coronary disease. 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 Denies any alcohol, tobacco or illicit drug use. CURRENT MEDICATIONS Current Medications Medications reviewed and notable for losartan. ALLERGIES Allergies: Coded Allergies: codeine (Unverified Allergy, Intermediate, rash, 05/11/14) latex (Unverified Allergy, Intermediate, rash, 05/11/14) ROS Review of Systems Negative for 10 out of 14 systems reviewed unless otherwise mentioned above in history of present illness PHYSICAL EXAM General: Alert, Oriented X3 HEENT: Atraumatic Lungs: Clear to auscultation Heart: Regular rate Abdomen: Normal bowel sounds Extremities: No clubbing Skin: No rashes Neuro: Normal gait, Normal speech Psych/Mental Status: Mental status NL MUSCULOSKELETAL: No swelling VITALS Vital Signs Vital Signs Date Time Temp Pulse Resp B/P (MAP) Pulse Ox O2 Delivery O2 Flow Rate FiO2 11/01/17 15:53 97.7 98 20 121/69 (86) 95 Nasal Cannula 1.0 LABS LABS No significant troponin elevation. IMAGES IMAGES CT scan of the chest suggestive of pneumonia. No significant edema noted. EKG EKG Normal sinus rhythm on telemetry. EKG pending. ECHOCARDIOGRAM Echocardiogram Pulmonary echo [place] gram without any significant valvular abnormalities or wall motion abnormalities. Ejection fraction 55% ASSESSMENT/PLAN Problems: (1) Dyspnea Assessment/Plan 1. Dyspnea likely related to bronchitis/PNA. 2. Echo is unremarkable. 3. Supportive care. Pls call with questions. Thank you. Problem Qualifiers (1) Dyspnea: Dyspnea type: shortness of breath Qualified Codes: R06.02 - Shortness of breath KASSANDRA MACEDO MD Nov 01, 2017 18:32
--- NOTE | 2017-11-01 18:36 | RAD ---
Lung scan 11/01/2017 CLINICAL HISTORY: Shortness of breath, cough and fever for 3 days. TECHNIQUE: After the administration of 8 mCi of xenon-133 gas, ventilation images of both lungs were obtained using the gamma camera. After the intravenous administration of 5.5 mCi of technetium 99m MAA, perfusion images of both lungs were obtained using the gamma camera. FINDINGS: Comparison is made to a portable chest radiograph performed on 10/31/2017. This demonstrates mild cardiomegaly. A right perihilar infiltrate which is most confluent within the right lower lobe is seen. Slightly heterogeneous ventilation and perfusion to the right lower lobe is seen. No unmatched perfusion defect is noted. These findings are consistent with a low probability study for pulmonary embolism. IMPRESSION: Low probability study for pulmonary embolism. Electronically signed by: Blaise Caballero MD (11/01/2017 6:33 PM) [facility]
[2017-11-01 19:29] VITALS: BP 130/82
[2017-11-01] MEDS: ONDANSETRON PF 4 MG/2 ML VIAL. IV PRN (20:03)
[2017-11-01] MEDS: traZODone 100 MG TABLET. PO PRN (21:14)
[2017-11-01] MEDS: ZIPRASIDONE 80 MG CAPSULE. PO SCH (21:14)
[2017-11-01] MEDS: HEPARIN PF for SUB-Q USE 5,000 UNIT/0.5 ML VIAL. SQ SCH (21:19)
[2017-11-01] MEDS ORDERED: MEROPENEM 500 MG in IV NORMAL SALINE 50ML 50 ML IV SCH (22:00)
[2017-11-02] MEDS: MEROPENEM 500 MG in IV NORMAL SALINE 50ML 50 ML IV SCH ×2 (00:18→09:13)
[2017-11-02] MEDS: HYDROmorphone PF 2 MG/ML VIAL IV PRN ×4 (00:19→21:46)
[2017-11-02 00:27] VITALS: BP 115/72
[2017-11-02] MEDS: HEPARIN PF for SUB-Q USE 5,000 UNIT/0.5 ML VIAL. SQ SCH ×3 (05:30→21:52)
[2017-11-02] MEDS: LEVOTHYROXINE 100 MCG TABLET PO SCH (05:30)
[2017-11-02 05:46] VITALS: BP 120/78
--- NOTE | 2017-11-02 05:56 | PN ---
DATE: 11/01/2017 SUBJECTIVE: The patient was admitted yesterday with community-acquired pneumonia, started on levofloxacin. When I saw her this morning just today, she also continued to complain of shortness of breath and has continued to have cough with tinged sputum. Continued to have chest pain, chest tightness. PHYSICAL EXAMINATION: GENERAL: When I examined her, she was resting slightly propped up in bed, in no apparent respiratory distress. There was no pallor, jaundice, cyanosis, or thyromegaly. No jugular venous distension. No limb edema. VITAL SIGNS: Her heart rate was 88, blood pressure was 161/90, temperature was 97.8, respiratory rate was 20, and oxygen saturation was 96% on 1 liter of oxygen. HEAD, EYES, EARS, NOSE AND THROAT: Showed normocephalic, atraumatic. NECK: Supple. HEART: Showed normal first and second heart sounds with galloping and no rub or murmur. CHEST: Showed central trachea, equal bilateral expansion, air entry, vesicular sounds with crepitation, mostly in the right side posteriorly. I could not appreciate any rhonchi. ABDOMEN: Distended, soft, nontender. No guarding or rigidity. No organomegaly. Hernial orifice intact. Bowel sounds normal. NEUROLOGIC: She was awake, alert, responding appropriately. Cranial nerves intact. She moves extremities without difficulty. She ambulates without assistance or assistive devices. Her intake over the last 24 hours was 778 and out was not recorded. LABORATORY DATA: This morning showed a serum sodium of 137, potassium 4, chloride 101, bicarbonate 26, anion gap of 10, BUN 13, creatinine 1.3, estimated GFR was 52 mL per minute. Her glucose was 153, calcium was 8.8 and serum lactic acid was only 2. Her white cell count has worsened, it is now 23,300; hemoglobin 12.8, hematocrit 39.3, ___ was 251,000 with a manual differential showed 94% polymorphs, 4% lymphocytes. ASSESSMENT AND PLAN: The patient showed some worsening sign. She seemed to be in heart failure with galloping and also her white cell count is worsening. My plan is to discontinue IV fluid, broaden her antibiotic spectrum. I will also arrange to have an echocardiogram, Cardiology consult, CT scan of the chest without contrast and decide on further management accordingly. EDWIN CALLES MD DR: Cristian JOB#: [id number] / [id number]
[2017-11-02 06:55] LABS: HEMATOCRIT 33.5 % (36.0-47.0); HEMOGLOBIN 10.7 g/dL (12.0-15.5); RED BLOOD COUNT 3.94 x10^6/uL (3.50-5.40); RED CELL DISTRIBUTION WIDTH 14.9 % (11.5-14.5); WHITE BLOOD COUNT 13.2 x10^3/uL (4.0-11.0)
[2017-11-02 07:16] LABS: ALBUMIN 2.6 g/dL (3.4-5.0); ALBUMIN/GLOBULIN RATIO 0.7 (1.0-1.7); CALCIUM 7.9 mg/dL (8.5-10.1); CREATININE 1.2 mg/dL (0.6-1.0); GFR 57.5; POTASSIUM 3.8 mmol/L (3.5-5.1); TOTAL BILIRUBIN 0.1 mg/dL (0.2-1.0); TOTAL PROTEIN 6.4 g/dL (6.4-8.2)
[2017-11-02] MEDS: LOSARTAN 50 MG TABLET. PO SCH (08:24)
[2017-11-02] MEDS: clonazePAM 0.5 MG TABLET PO SCH ×3 (08:25→21:46)
[2017-11-02] MEDS: LACTOBACILLUS RHAMNOSUS GG 1 CAPSULE. PO SCH ×2 (08:25→21:45)
[2017-11-02] MEDS: hydroCHLOROthiazide 12.5 MG CAPSULE PO SCH (08:25)
[2017-11-02] MEDS: FOLIC ACID 1 MG TABLET PO SCH (08:25)
[2017-11-02] MEDS: lamoTRIgine 100 MG TABLET. PO SCH (08:26)
--- NOTE | 2017-11-02 08:45 | CARD ---
MR#: [id number] Date of Study: 11/01/2017 Ordering Physician: EDWIN CALLES, Referring Physician: EDWIN CALLES, Tech: Ramila Simeon RDCS APPROVED REPORT EXAM: Two-dimensional and M-mode echocardiogram with Doppler and color Doppler. Other Information Quality : AverageHR: 97bpm Rhythm : NSR INDICATION Congestive Heart Failure 2D DIMENSIONS Left Atrium(2D)3.4 (1.6-4.0cm)IVSd1.1 (0.7-1.1cm) LVDd4.2 (3.9-5.9cm)LVOT Diameter2.3 (1.8-2.4cm) PWd1.1 (0.7-1.1cm)LVDs2.8 (2.5-4.0cm) FS (%) 31.6 %SV46.0 ml LVEF(%)60.0 (>50%) Aortic Valve AoV Peak Joe.164.0cm/sAoV VTI35.3cm AO Peak GR.10.8mmHgLVOT Peak Joe.109.8cm/s LVOT VTI 23.26cmAO Mean GR.7mmHg BEN (VMAX)2.60qp1MHI (VTI)2.82cm2 AI P 1/2 Azsv772ab Pulmonary Valve PV Peak Fbnljzvp62.7cm/sPV Peak Grad.3mmHg Tricuspid Valve TR P. Exyvaqxe956bw/sTR Peak Gr.56mmHg LEFT VENTRICLE The left ventricle is normal size. There is normal left ventricular wall thickness. The left ventricu lar systolic function is normal. The ejection fraction is estimated at 60%. There is normal LV segmen cher wall motion. No left ventricle thrombus noted on this study. There is no ventricular septal defec t visualized. There is no left ventricular aneurysm. There is no mass noted in the left ventricle. RIGHT VENTRICLE The right ventricle is normal size. The right ventricular systolic function is normal. ATRIA The left atrium is mildly dilated. The right atrium size is normal. The interatrial septum is intact with no evidence for an atrial septal defect or patent foramen ovale as noted on 2-D or Doppler imagi ng. AORTIC VALVE The aortic valve is normal in structure and function. Doppler and Color Flow revealed trace to mild a ortic regurgitation. There is no significant aortic valvular stenosis. There is no aortic valvular ve getation. MITRAL VALVE The mitral valve is normal in structure and function. There is no evidence of mitral valve prolapse. There is no mitral valve stenosis. Doppler and Color Flow revealed mild mitral regurgitation. TRICUSPID VALVE The tricuspid valve is normal in structure and function. Doppler and Color Flow revealed moderate tri cuspid regurgitation. There is no tricuspid valve prolapse or vegetation. There is no tricuspid valve stenosis. PULMONIC VALVE The pulmonary valve is normal in structure and function. Doppler and Color Flow revealed trace pulmon ic valvular regurgitation. There is no pulmonic valvular stenosis. GREAT VESSELS The aortic root is normal in size. The ascending aorta is normal in size. The IVC is normal in size a nd collapses >50% with inspiration. PERICARDIAL EFFUSION There is no pleural effusion. There is no evidence of significant pericardial effusion. Critical Notification Critical Value: No <Conclusion> The left ventricular systolic function is normal. The ejection fraction is estimated at 60%. There is normal LV segmental wall motion. Trace to mild aortic regurgitation. Mild mitral regurgitation. Moderate tricuspid regurgitation. There is no evidence of significant pericardial effusion. Signed by : Kieran Dutton, Electronically Approved : 11/02/2017 08:44:59
[2017-11-02] MEDS: ACETAMINOPHEN 325 MG TABLET PO PRN (09:14)
[2017-11-02 10:40] VITALS: BP 114/74
[2017-11-02] MEDS: MAGNESIUM OXIDE 400 MG TABLET PO SCH ×2 (15:33→21:45)
[2017-11-02 16:30] VITALS: BP 133/82
[2017-11-02] MEDS: ONDANSETRON PF 4 MG/2 ML VIAL. IV PRN (18:36)
[2017-11-02] MEDS: MEROPENEM IV Push 500 MG VIAL. IVP SCH (18:38)
[2017-11-02 20:02] VITALS: BP 136/90
[2017-11-02] MEDS: traZODone 100 MG TABLET. PO PRN (21:45)
[2017-11-02] MEDS: ZOLPIDEM 5 MG TABLET. PO PRN (21:46)
[2017-11-02] MEDS: ZIPRASIDONE 80 MG CAPSULE. PO SCH (21:53)
[2017-11-02 23:00] VITALS: BP 114/73
[2017-11-02] MEDS ORDERED: PROMETHAZINE 25 MG/ML VIAL IV ONE (23:49)
[2017-11-02] MEDS: PROMETHAZINE 12.5 MG in IV NORMAL SALINE 50ML 50 ML IV PRN (23:56)
--- NOTE | 2017-11-03 00:15 | PN ---
DATE: 11/02/2017 SUBJECTIVE: The patient is sitting slightly propped up, in no apparent distress. She is sleepy, but arousable. On questioning her, she continued to complain of pain, shortness of breath, cough with blood-tinged sputum. PHYSICAL EXAMINATION: GENERAL: When I examined her, she looked well and was clearly in no apparent respiratory distress, no pallor, jaundice, cyanosis, or thyromegaly. No jugular venous distension. No limb edema. VITAL SIGNS: Her heart rate was 95, blood pressure was 114/74, temperature was 97.5, respiratory rate was 18 and oxygen saturation was 98% on room air. HEAD, EYES, EARS, NOSE AND THROAT: Showed normocephalic, atraumatic. NECK: Supple. HEART: Showed normal first and second heart sounds with no gallop, rub or murmur. CHEST: Shows central trachea, equal bilateral chest expansion, air entry, vesicular breath sounds with crepitation mostly in the right side posteriorly, very few scattered rhonchi. ABDOMEN: Distended, soft, nontender. No guarding or rigidity. No organomegaly. Hernial orifice intact. Bowel sounds normal. NEUROLOGIC: She was sleepy, but arousable. All cranial nerves appears intact. She moves extremities without difficulty. She ambulates without assistance or assistive devices. Her intake over the last 24 hours was 2861, no output was recorded. LABORATORY DATA: Her lab work this morning showed a white cell count is down to 13,200, hemoglobin 10.7, hematocrit 33.5, MCV 85 and platelet count 218,000. Her serum sodium was 142, potassium 3.8, chloride 107, bicarbonate 28, anion gap of 7, BUN 14, creatinine 1.2. Estimated GFR was 57 mL per minute. Her glucose was 79. Calcium was 7.9, magnesium was 1.5. Her total bilirubin, AST, ALT, alkaline phosphatase were normal. Total protein was 6.4, albumin 2.6. ASSESSMENT: 1. Community-acquired pneumonia, improving clinically. She is afebrile, hemodynamically stable with a white cell count that is trending downward. 2. Hypertension, well controlled. 3. Hypothyroidism. 4. Osteoarthritis. 5. Bipolar disorder. PLAN: To continue with IV antibiotics. So far, all her blood cultures are negative. I will repeat her labs tomorrow including magnesium. I will start her also on magnesium oxide and we will decide on further management accordingly. EDWIN CALLES MD DR: AKHIL/cherrie JOB#: [id number] / [id number]
[2017-11-03] MEDS: MEROPENEM IV Push 500 MG VIAL. IVP SCH ×3 (00:29→16:48)
[2017-11-03] MEDS: HYDROmorphone PF 2 MG/ML VIAL IV PRN (04:01)
[2017-11-03] MEDS: LEVOTHYROXINE 100 MCG TABLET PO SCH (05:06)
[2017-11-03] MEDS: HEPARIN PF for SUB-Q USE 5,000 UNIT/0.5 ML VIAL. SQ SCH ×3 (05:13→20:24)
[2017-11-03 05:15] VITALS: BP 120/77
[2017-11-03 07:00] LABS: HEMATOCRIT 33.2 % (36.0-47.0); HEMOGLOBIN 10.8 g/dL (12.0-15.5); RED BLOOD COUNT 3.9 x10^6/uL (3.50-5.40); RED CELL DISTRIBUTION WIDTH 14.9 % (11.5-14.5); WHITE BLOOD COUNT 7.5 x10^3/uL (4.0-11.0)
[2017-11-03 07:10] LABS: CALCIUM 8.2 mg/dL (8.5-10.1); CREATININE 1.2 mg/dL (0.6-1.0); GFR 57.5; MAGNESIUM 1.7 mg/dL (1.8-2.4); POTASSIUM 4.1 mmol/L (3.5-5.1)
[2017-11-03] MEDS: LACTOBACILLUS RHAMNOSUS GG 1 CAPSULE. PO SCH ×2 (08:46→19:57)
[2017-11-03] MEDS: clonazePAM 0.5 MG TABLET PO SCH ×3 (08:46→19:57)
[2017-11-03] MEDS: hydroCHLOROthiazide 12.5 MG CAPSULE PO SCH (08:48)
[2017-11-03] MEDS: lamoTRIgine 100 MG TABLET. PO SCH (08:48)
[2017-11-03] MEDS: FOLIC ACID 1 MG TABLET PO SCH (08:48)
[2017-11-03] MEDS: LOSARTAN 50 MG TABLET. PO SCH (08:48)
[2017-11-03] MEDS: MAGNESIUM OXIDE 400 MG TABLET PO SCH ×3 (08:48→19:57)
[2017-11-03] MEDS: ONDANSETRON PF 4 MG/2 ML VIAL. IV PRN (09:00)
[2017-11-03] MEDS: ACETAMINOPHEN 325 MG TABLET PO PRN ×2 (09:00→13:28)
[2017-11-03 11:11] VITALS: BP 155/101
[2017-11-03 13:09] VITALS: BP 148/97
[2017-11-03] MEDS: oxyCODONE IR 5 MG TABLET PO PRN ×2 (13:28→20:05)
[2017-11-03] MEDS: PROMETHAZINE 12.5 MG in IV NORMAL SALINE 50ML 50 ML IV PRN ×2 (13:29→20:16)
[2017-11-03 15:15] VITALS: BP 130/87
[2017-11-03 19:19] VITALS: BP 136/90
[2017-11-03] MEDS: ZIPRASIDONE 80 MG CAPSULE. PO SCH (19:57)
[2017-11-03] MEDS: ZOLPIDEM 5 MG TABLET. PO PRN (20:00)
[2017-11-03 23:34] VITALS: BP 121/79
[2017-11-04] MEDS: oxyCODONE IR 5 MG TABLET PO PRN (00:10)
[2017-11-04] MEDS: MEROPENEM IV Push 500 MG VIAL. IVP SCH ×2 (00:10→09:13)
[2017-11-04] MEDS: LEVOTHYROXINE 100 MCG TABLET PO SCH (05:06)
[2017-11-04] MEDS: HEPARIN PF for SUB-Q USE 5,000 UNIT/0.5 ML VIAL. SQ SCH (05:07)
[2017-11-04 05:29] VITALS: BP 120/81
[2017-11-04 08:23] LABS: CALCIUM 8.2 mg/dL (8.5-10.1); CREATININE 1.3 mg/dL (0.6-1.0); GFR 52.5; POTASSIUM 3.9 mmol/L (3.5-5.1)
[2017-11-04] MEDS: lamoTRIgine 100 MG TABLET. PO SCH (09:13)
[2017-11-04] MEDS: LACTOBACILLUS RHAMNOSUS GG 1 CAPSULE. PO SCH (09:13)
[2017-11-04] MEDS: hydroCHLOROthiazide 12.5 MG CAPSULE PO SCH (09:14)
[2017-11-04] MEDS: MAGNESIUM OXIDE 400 MG TABLET PO SCH (09:14)
[2017-11-04] MEDS: FOLIC ACID 1 MG TABLET PO SCH (09:14)
[2017-11-04] MEDS: clonazePAM 0.5 MG TABLET PO SCH (09:14)
[2017-11-04] MEDS: LOSARTAN 50 MG TABLET. PO SCH (09:14)
[2017-11-04] MEDS: ACETAMINOPHEN 325 MG TABLET PO PRN (09:23)
[2017-11-04] MEDS: ONDANSETRON PF 4 MG/2 ML VIAL. IV PRN (09:23)
[2017-11-04 10:43] VITALS: BP 122/84
[2017-11-04] MEDS ORDERED: OXYC5CAP PO (12:33)
[2017-11-04] MEDS ORDERED: LEVO500T59 PO (12:33)
--- NOTE | 2017-11-05 00:54 | DS ---
DATE OF DISCHARGE: 11/04/2017 HOSPITAL COURSE: The patient is a 52-year-old -Malagasy female patient who was admitted on ___ with a complaint of cough with chest tightness for which she was seen initially at [place] and at that time, she was started on Afrin nasal spray, Robitussin-DM and Tylenol without much improvement. She was treated with a course of Z-ANDREW, inhalers, ibuprofen and Diflucan without much improvement. She continued to cough with blood-tinged sputum. She also had a chest pain that is aggravated by taking a deep breath and chest tightness. She was evaluated in the Emergency Room, was found to have leukocytosis and pneumonia, was admitted and was started on IV antibiotic in the form of levofloxacin and ____. She did generally well. She remained afebrile. Her white cell count came down from 23,000-7500. All her blood cultures were negative, so her Zyvox was initially discontinued and as she remained stable, a decision was made to discharge home to continue treatment with levofloxacin as an outpatient to follow with her primary care physician in 1 week's time. PHYSICAL EXAMINATION: GENERAL: When I examined her, she looked well and was clearly in no apparent respiratory distress, pale, but no jaundice, cyanosis, or thyromegaly. No jugular venous distension. No limb edema. VITAL SIGNS: Her heart rate was 97, blood pressure 122/84, temperature was 98.2, respiratory rate was 16 and oxygen saturation was 99% on room air. HEAD, EYES, EARS, NOSE AND THROAT: Showed normocephalic, atraumatic. NECK: Supple. HEART: Showed normal first and second heart sounds with no gallop, rub or murmur. CHEST: Shows central trachea, equal bilateral expansion, air entry, vesicular breath sounds. No crepitation or rhonchi. ABDOMEN: Distended, soft, nontender. NEUROLOGIC: She is awake, alert, responding appropriately. Cranial nerves intact. EXTREMITIES: She moves extremities without difficulty. She ambulates without assistance or assistive devices. LABORATORY DATA: Showed a white cell count of 7500, hemoglobin 11, hematocrit 33, MCV 85 and platelet count 229,000. Her chemistry showed a serum sodium 140, potassium 3.9, chloride 104, bicarbonate 32, anion gap of 4, BUN 9, creatinine 1.3, estimated GFR was 52 mL per minute, her calcium was 8.2 and TSH was 5.9. DISCHARGE MEDICATIONS: The patient was discharged home to continue on levofloxacin 500 mg once a day for 5 more days, oxycodone 5 mg 4 times a day, albuterol sulfate 1-2 puffs every 4 hours, Wellbutrin-XR 300 mg daily, clonazepam 0.5 mg 3 times a day, fluconazole 150 mg once a day, folic acid 1 mg daily, lamotrigine 350 mg once a day, levothyroxine sodium 100 mcg once a day. She is on sertraline 200 mg once a day, Zoloft 100 mg once a day, ziprasidone for Geodon 80 mg daily and zolpidem 12.5 mg at bedtime. FINAL DISCHARGE DIAGNOSES: 1. Healthcare-associated pneumonia, clinically much improved. 2. Hypertension, well controlled. 3. Hypothyroidism, clinically and biochemically euthyroid. 4. Osteoarthritis. 5. Bipolar disorder. The patient was advised to hold her Wellbutrin, Zoloft, and trazodone for the next 5 days and she can resume them after she finished treatment with levofloxacin. EDWIN CALLES MD DR: AKHIL/cherrie JOB#: [id number] / [id number]
--- NOTE | 2017-11-05 01:48 | PN ---
DATE: 11/03/2017 SUBJECTIVE: The patient is resting, slightly propped up in bed, in no apparent distress. She is generally doing much better, continued to have some cough, has been up and about. She is maintaining her oxygen saturations 99% on room air. She is afebrile, hemodynamically stable. PHYSICAL EXAMINATION: GENERAL: When I examined her, she looked well and was clearly in no apparent respiratory distress. VITAL SIGNS: Her heart rate was 96, blood pressure was 130/87, temperature was 97.9, respiratory rate 20, and oxygen saturation was 99%. HEAD, EYES, EARS, NOSE AND THROAT: Normocephalic, atraumatic. NECK: Supple. HEART: Showed normal first and second heart sounds with no gallop, rub or murmur. CHEST: Shows central trachea, equal bilateral expansion, air entry. Few scattered crackles posteriorly, more so on the right than left. I could not appreciate any rhonchi. ABDOMEN: Distended, soft, and nontender. No guarding or rigidity. No organomegaly. Hernial orifice intact. Bowel sounds normal. NEUROLOGIC: She was awake, alert, responding appropriately. EXTREMITIES: She moves extremities without difficulty. Her intake was 1820, no output was recorded. LABORATORY DATA: Showed a white cell count is down to 7500, hemoglobin 11, hematocrit 33, MCV 85, and platelet count 229,000. Her chemistry showed a serum sodium 139, potassium 4.1, chloride 104, bicarbonate 30, anion gap of 5, BUN 9, creatinine 1.2, estimated GFR was 57 mL per minute. Her glucose was 80, calcium was 8.2, magnesium was 1.7. ASSESSMENT: 1. Community-acquired pneumonia, improving clinically. She is afebrile, hemodynamically stable with normal white cell count. 2. Hypertension, well controlled. 3. Hypothyroidism. She is both clinically and biochemically euthyroid. 4. Osteoarthritis. 5. Bipolar disorder. PLAN: My plan is to discontinue Zyvox, continue with Zosyn and Levaquin; tomorrow, we will switch her to oral antibiotic and she can be discharged home to finish treatment as an outpatient. EDWIN CALLES MD DR: AKHIL/cherrie JOB#: [id number] / [id number]
== END 2017-11-04 13:20 | disposition home or self-care (01) | DRG 871 ==
LOC: ER 15:53 → UNDOADMOB 17:41 → 1 SOUTH 17:41 → OBSVTOIN 11-01 17:40
PROVIDERS: ADMIT Internal Medicine; ATTEND Internal Medicine
DX: A41.9 Sepsis, unspecified organism (principal); J18.9 Pneumonia, unspecified organism; E87.2 Acidosis; E03.9 Hypothyroidism, unspecified; I10 Essential (primary) hypertension; F31.9 Bipolar disorder, unspecified; J40 Bronchitis, not specified as acute or chronic; M19.90 Unspecified osteoarthritis, unspecified site; Y95 Nosocomial condition; Z81.8 Family history of other mental and behavioral disorders; Z82.0 Family history of epilepsy and other diseases of the nervous system; Z82.49 Family history of ischemic heart disease and other diseases of the circulatory system; Z83.3 Family history of diabetes mellitus; Z90.49 Acquired absence of other specified parts of digestive tract
CPT/HCPCS: 36415; 71045; 71250; 78582; 80048; 80053; 82550; 83605; 83735; 83880; 84443; 84484; 85007; 85025; 85027; 87040; 93306; 94640; 96374; 96375; A9540; A9558; G0378; G0379; J1100; J1170; J1885; J1956; J2020; J2185; J2405; J2550; J3010; J7040; J7613; 99285-25

== ENCOUNTER 2017-12-23 17:47 | Emergency (ER) | payer OTHER ==
[~2017-12-23] VITALS: Ht 327.7 cm; Wt 110.7 kg
[~2017-12-23 17:47] MED LIST changes: +BUPR300T3 PO; +CLON0.5T3 PO; +FOLI1TAB16 PO; +LAMO100T5 PO; +LEVO100T5 PO; +LEVO500T59 PO; +LOSA1TAB19 PO; +OXYC5CAP PO; +SERT20OR PO; +TRAZ-90 PO; +ZIPR80CA2 PO; +ZOLP12.52 PO
[2017-12-23] MEDS ORDERED: IV NORMAL SALINE 1,000ML 1,000 ML IV SCH (19:14)
--- NOTE | 2017-12-23 19:16 | PHYS DOC ---
General Chief Complaint: WEAKNESS/GENERALIZED Stated Complaint: WEAKNESS Time Seen by MD: 19:13 Source: patient Exam Limitations: no limitations Problems: History of Present Illness Initial Comments Patient is a 52-year-old female who comes in the ED complaining of generalized weakness. Patient states she's had 3 days decreased PO intake/urination, increased weakness. She denies any headache or focal neurologic deficits. Denies any specific pain complaints no chest pain trouble breathing abdominal pain nausea or vomiting. States she just overall tired denies any new medication changes no fever chills cough. No pre-arrival treatment Timing/Duration: other Severity: mild Modifying Factors: worse with movement, improves with rest (yes) Associated Symptoms: loss of appetite, malaise, weakness Allergies: Coded Allergies: codeine (Unverified Allergy, Intermediate, rash, 05/11/14) latex (Unverified Allergy, Intermediate, rash, 05/11/14) Past Medical History Medical History: other (bipolar, hypertension, hypothyroidism, stage II chronic kidney disease) Surgical History: noncontributory, other Family History Significant Family History: heart disease, seizures, vascular disease Social History Smoker: non-smoker Alcohol: none Drugs: none Review of Systems Constitutional: denies chills, denies diaphoresis, denies fever, malaise, weakness EENTM: denies blurred vision, denies double vision, denies ear pain, denies nose pain, denies throat pain Respiratory: denies cough, denies shortness of breath, denies wheezing Cardiovascular: denies chest pain, denies edema, denies palpitations, denies syncope Gastrointestinal: denies abdominal pain, denies diarrhea, denies nausea, denies vomiting Genitourinary: denies discharge, denies dysuria, denies frequency, denies hematuria Musculoskeletal: denies back pain, denies joint swelling, denies neck pain Psychiatric/Neurological: see HPI, denies headache Hematologic/Lymphatic: denies blood clots, denies easy bleeding, denies easy bruising Physical Exam General Appearance: no apparent distress Eyes: bilateral eye normal inspection, bilateral eye PERRL, bilateral eye EOMI Ear, Nose, Throat: hearing grossly normal, normal ENT inspection, normal pharynx (mildly dry membranes) Neck: non-tender, supple Respiratory: normal breath sounds, no respiratory distress Cardiovascular: normal peripheral pulses, regular rate, rhythm Gastrointestinal: normal bowel sounds, non tender, soft, no organomegaly Back: no CVA tenderness, no vertebral tenderness Extremities: non-tender, normal inspection 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 States she follows with nephrology has CKD 2. Departure Time of Disposition: 22:58 Disposition: HOME, SELF-CARE Diagnosis: weakness, CKD2 Condition: GOOD Patient Instructions: Weakness, [id number] Additional Instructions: As discussed you have requested discharge home at this time. Ensure adequate hydration. Continue current medications. Follow-up with your doctor on Monday for recheck. Return to ED with new or changing symptoms. JONATHAN CLEMENT DO Dec 23, 2017 19:16
[2017-12-23 20:31] LABS: BASO # 0.1 x10^3/uL (0.0-0.2); BASO % 1 % (0-3); EOS % 1 % (0-3); HEMATOCRIT 42.3 % (36.0-47.0); HEMOGLOBIN 13.9 g/dL (12.0-15.5); LYMPH # 1.2 x10^3/uL (1.0-4.8); LYMPH % 22 % (24-48); MEAN CORPUSCULAR HEMOGLOBIN 28 pg (25-35); MEAN CORPUSCULAR HGB CONC 33 g/dL (31-37); MEAN CORPUSCULAR VOLUME 85 fL (79-100); MONO # 0.4 x10^3/uL (0.0-1.1); MONO % 8 % (0-9); NEUT # 3.7 x10^3uL (1.8-7.7); NEUT % 69 % (31-73); PLATELET COUNT 243 x10^3/uL (140-400); RED BLOOD COUNT 4.98 x10^6/uL (3.50-5.40); RED CELL DISTRIBUTION WIDTH 13.3 % (11.5-14.5); WHITE BLOOD COUNT 5.4 x10^3/uL (4.0-11.0)
[2017-12-23 20:35] LABS: CALCIUM 9.7 mg/dL (8.5-10.1); CREATININE 2.6 mg/dL (0.6-1.0); GFR 23.6; POTASSIUM 4.2 mmol/L (3.5-5.1)
[2017-12-23 20:59] LABS: BACTERIA,URINE MOD /HPF (0-FEW); BILIRUBIN,URINE NEG (NEG); CLARITY,URINE HAZY; COLOR,URINE YELLOW; GLUCOSE,URINE NEG (NEG); NITRITE,URINE NEG (NEG); SQUAMOUS EPITHELIAL CELL,UR FEW /LPF; UROBILINOGEN,URINE 0.2 mg/dL (0.2 mg/dL)
[2017-12-23 21:00] LABS: HYALINE CASTS, URINE MANY /HPF
[2017-12-23 23:00] VITALS: BP 130/82
== END 2017-12-23 23:00 | disposition home or self-care (01) ==
LOC: ER 17:47
DX: R53.1 Weakness (principal); I12.9 Hypertensive chronic kidney disease with stage 1 through stage 4 chronic kidney disease, or unspecified chronic kidney disease; N18.2 Chronic kidney disease, stage 2 (mild); E03.9 Hypothyroidism, unspecified; Z88.5 Allergy status to narcotic agent; Z91.040 Latex allergy status
CPT/HCPCS: 36415; 80048; 81001; 84484; 85025; 87086; 96360; 96361; 99285-25; J7030

== ENCOUNTER 2018-03-02 19:10 | Emergency (ER) | payer OTHER ==
[~2018-03-02] VITALS: Ht 175.3 cm; Wt 93.9 kg
[~2018-03-02 19:10] MED LIST changes: +SERT100T PO; -SERT20OR PO
--- NOTE | 2018-03-02 19:23 | ED.ADGEN ---
Past History Past Medical History: Bipolar, Hypertension, Hypothyroid Past Surgical History: , Other Smoking: Non-smoker Alcohol Use: None Drug Use: None Adult General Chief Complaint Chief Complaint ".. I ve been having some constipation.. and also had some back surgery.. still passing gas... but no stool for days..." HPI HPI Patient is a 52 year old female who presents with above hx of constipation and bloating. Pt. denies any travel, ill contracts, no travel or hx immunosuppression. Pt. normally follows at [place]. [] Review of Systems Review of Systems Constitutional: Denies fever or chills [] Eyes: Denies change in visual acuity, redness, or eye pain [] HENT: Denies nasal congestion or sore throat [] Respiratory: Denies cough or shortness of breath [] Cardiovascular: No additional information not addressed in HPI [] GI: Complaints of abdominal pain, nausea, . No vomiting, bloody stools or diarrhea [] Does have hx of constipation : Denies dysuria or hematuria [] Musculoskeletal:recent back surgery and back pain . Denies generalized joint pain [] Integument: Denies rash or skin lesions [] Neurologic: Denies headache, focal weakness or sensory changes [] Endocrine: Denies polyuria or polydipsia [] All other systems were reviewed and found to be within normal limits, except as documented in this note. Family History Family History Non-contributory Current Medications Current Medications Current Medications Medications (Trade) Dose Ordered Sig/Kristy Start Time Stop Time Status Last Admin Dose Admin Glycerin (Sani-Supp Adult) 1 supp 1X ONCE 03/02/18 20:15 03/02/18 20:16 DC 03/02/18 20:19 1 SUPP Magnesium Citrate (Citroma) 296 ml 1X ONCE 03/02/18 19:45 03/02/18 19:47 DC 03/02/18 20:19 296 ML Ondansetron HCl (Zofran Odt) 8 mg 1X ONCE 03/02/18 19:45 03/02/18 19:47 DC 03/02/18 19:41 8 MG Allergies Allergies Allergies Coded Allergies Type Severity Reaction Last Updated Verified codeine Allergy Intermediate rash 05/11/14 No latex Allergy Intermediate rash 05/11/14 No Physical Exam Physical Exam Constitutional: Moderately acute distress, non-toxic appearance. [] HENT: Normocephalic, atraumatic, bilateral external ears normal, oropharynx moist, no oral exudates, nose normal. [] Eyes: PERRLA, EOMI, conjunctiva normal, no discharge. [] Neck: Normal range of motion, no tenderness, supple, no stridor. [] Cardiovascular:Heart rate regular rhythm, no murmur [] Lungs & Thorax: Bilateral breath sounds clear to auscultation [] Abdomen: Bowel sounds normal, soft, generalized distention, and mild generalized tenderness, no masses, no pulsatile masses. [] Surgery scar. Skin: Warm, dry, no erythema, no rash. [] Back: No tenderness, no CVA tenderness. [] Surgery scar. Extremities: No tenderness, no cyanosis, no clubbing, ROM intact, no edema. [] Neurologic: Alert and oriented X 3, normal motor function, normal sensory function, no focal deficits noted. [] Psychologic: Affect anxious, judgement normal, mood normal. [] Current Patient Data Vital Signs Vital Signs Date Time Temp Pulse Resp B/P (MAP) Pulse Ox O2 Delivery O2 Flow Rate FiO2 03/02/18 20:25 92 20 122/62 (82) 96 Room Air 03/02/18 19:20 97.7 EKG EKG [] Radiology/Procedures Radiology/Procedures My interpretation of X-ray shows[] shows stool throughout the colon. No finding of air-fluid levels or significant ileus. Does have clips from previous surgery no free air under the diaphragm. Course & Med Decision Making Course & Med Decision Making Pertinent Labs and Imaging studies reviewed. (See chart for details). Temp to hold on the glycerin suppository as long as possible. Clear liquid diet only. No solids or milk products x 24 hrs. Take Golyte- every hour until stooling. Follow up with primary. [] Final Impression Final Impression 1. Constipation 2. Abd. Pain[] Problems: Dragon Disclaimer Dragon Disclaimer This electronic medical record was generated, in whole or in part, using a voice recognition dictation system. MITCHEL SOSA MD March 02, 2018 19:23
[2018-03-02] MEDS ORDERED: MAGNESIUM CITRATE 296 ML SOLUTION. PO ONE (19:45)
[2018-03-02] MEDS ORDERED: ONDANSETRON ODT 4 MG TAB.RAPDIS PO ONE (19:45)
[2018-03-02] MEDS ORDERED: PEG4000S8 PO (19:57)
[2018-03-02] MEDS ORDERED: GLYCERIN ADULT 1 SUPP.RECT. PR ONE (20:15)
[2018-03-02 20:25] VITALS: BP 122/62
--- NOTE | 2018-03-03 08:07 | RAD ---
Acute abdomen series. History: Constipation, recent back surgery. Comparison: None. Findings: Frontal chest radiograph. Cardiac silhouette appears within normal limits for size. No pneumoperitoneum, pneumothorax, or large pleural effusion seen. No focal infiltrate is identified. Supine and upright AP views of the abdomen. Bowel gas pattern is nonspecific, without evidence of small bowel obstruction. Cholecystectomy clips are present. Mild-moderate colonic stool is present. Impression: No acute abnormality identified in the chest or abdomen. Electronically signed by: Jalen Foote MD (03/03/2018 8:04 AM) [facility]
== END 2018-03-02 20:27 | disposition home or self-care (01) ==
LOC: ER 19:10
DX: K59.00 Constipation, unspecified (principal); I10 Essential (primary) hypertension; E03.9 Hypothyroidism, unspecified; F31.9 Bipolar disorder, unspecified; Z88.5 Allergy status to narcotic agent; Z91.040 Latex allergy status
CPT/HCPCS: 74022; 99284; Q0162

== ENCOUNTER 2018-05-13 22:22 | Emergency (ER) | payer OTHER ==
[~2018-05-13] VITALS: Ht 175.3 cm; Wt 89.8 kg
[~2018-05-13 22:22] MED LIST changes: +CLON0.5T11 PO; -CLON0.5T3 PO; +PEG4000S8 PO; +TRAZ-86 PO; -TRAZ-90 PO
[2018-05-13] MEDS ORDERED: HYDR-971 PO (22:44)
[2018-05-13 22:45] VITALS: BP 113/75
[2018-05-13] MEDS ORDERED: ONDANSETRON ODT 4 MG TAB.RAPDIS PO ONE (23:00)
[2018-05-13] MEDS ORDERED: HYDROcodone/APAP 5/325MG 1 TAB TABLET PO ONE (23:00)
[2018-05-13] MEDS ORDERED: PROM25TA10 PO (23:14)
--- NOTE | 2018-05-13 23:21 | PHYS DOC ---
Past History Past Medical History: Anxiety, Bipolar, Depression, Hypertension, Hypothyroid Past Surgical History: , Other Smoking: Non-smoker Alcohol Use: None Drug Use: None Adult General Chief Complaint Chief Complaint: SHOUDLER HPI HPI Patient is a 52-year-old female with shoulder pain. She's had this pain for 2 weeks now has been constant it is slowly getting worse she has been doing more exercise including lifting weights with her arms the pain is described as on the inside of her shoulder dull constant worse with lifting up the shoulder or touching the shoulder no chest pain the shoulder pain is nonexertional and has been constant entire time Review of Systems Review of Systems Constitutional: Denies fever or chills [] Eyes: Denies change in visual acuity, redness, or eye pain [] HENT: Denies nasal congestion or sore throat [] Respiratory: Denies cough or shortness of breath [] Cardiovascular: No chest pain GI: Denies abdominal pain, nausea, vomiting, bloody stools or diarrhea [] Neurologic: Denies headache, focal weakness or sensory changes [] All other systems were reviewed and found to be within normal limits, except as documented in this note. Current Medications Current Medications Current Medications Medications (Trade) Dose Ordered Sig/Kristy Start Time Stop Time Status Last Admin Dose Admin Acetaminophen/ Hydrocodone Bitart (Lortab 5/325) 2 tab 1X ONCE 05/13/18 23:00 05/13/18 23:01 DC Ondansetron HCl (Zofran Odt) 4 mg 1X ONCE 05/13/18 23:00 05/13/18 23:01 DC Promethazine HCl (Phenergan) 25 mg 1X ONCE 05/13/18 23:15 05/13/18 23:16 UNV Allergies Allergies Allergies Coded Allergies Type Severity Reaction Last Updated Verified codeine Allergy Intermediate rash 05/11/14 No latex Allergy Intermediate rash 05/11/14 No Physical Exam Physical Exam Constitutional: Well developed, well nourished, no acute distress, non-toxic appearance. [] HENT: Normocephalic, atraumatic, bilateral external ears normal, oropharynx moist, no oral exudates, nose normal. [] Eyes: PERRLA, EOMI, conjunctiva normal, no discharge. [] Neck: Normal range of motion, no tenderness, supple, no stridor. [] Normal respiratory effort no increased work of breathing. Abdomen: Bowel sounds normal, soft, no tenderness, no masses, no pulsatile masses. [] Skin: Warm, dry, no erythema, no rash. [] Back: No tenderness, no CVA tenderness. [] Extremities: Patient has tenderness to palpation over the left anterior shoulder range of motion is reproducing her pain however passive range of motion is fairly intact with limited reduction in range of motion. Neurologic: Alert and oriented X 3, normal motor function, normal sensory function, no focal deficits noted. [] Psychologic: Somewhat blunted affect EKG EKG [] Radiology/Procedures Radiology/Procedures [] Impressions: My interpretation shoulder x-ray negative acute Course & Med Decision Making Course & Med Decision Making Pertinent Labs and Imaging studies reviewed. (See chart for details) []This is a 52-year-old female with a prior history of depression who is presenting to the emergency room with shoulder pain after lifting more weights than usual for the last couple of weeks the pain is constant it is reproducible on examination both with palpation as well as with movement of the shoulder. No signs of a septic joint clinically x-ray was negative for any acute process this is not cardiac related by history at all. It is clearly reproducible. Patient was given a prescription for Marvin with some Phenergan for couple of days and advised to follow-up with primary care doctor for further imaging as needed if the pain is not improved. Dragon Disclaimer Dragon Disclaimer This electronic medical record was generated, in whole or in part, using a voice recognition dictation system. Departure Departure: Impression: Primary Impression: Shoulder pain Disposition: 01 HOME, SELF-CARE Condition: STABLE Patient Instructions: Shoulder Pain, [id number] Scripts Promethazine Hcl (PROMETHAZINE HCL) 25 Mg Tablet 1 TAB PO PRN Q6HRS PRN for NAUSEA/VOMITING, #20 TAB Prov: SANDRA CHURCH MD 05/13/18 Hydrocodone Bit/Acetaminophen (NORCO 5-325 TABLET) 1 Each Tablet 1-2 TAB PO Q4-6HRS PRN for PAIN, #10 TAB Prov: SANDRA CHURCH MD 05/13/18 SANDRA CHURCH MD May 13, 2018 23:21
[2018-05-13] MEDS ORDERED: PROMETHAZINE 25 MG TABLET. PO ONE (23:45)
--- NOTE | 2018-05-13 23:59 | RAD ---
EXAM: LEFT SHOULDER 3 VIEWS. HISTORY: Left shoulder pain. COMPARISON: None. FINDINGS: No fractures are identified. Glenohumeral joint spaces and alignment are maintained. Acromioclavicular joint spaces and alignment are maintained for patient age. IMPRESSION: 1. No fracture or malalignment. Electronically signed by: Jewel Damon MD (05/13/2018 11:56 PM) [facility]
== END 2018-05-13 23:28 | disposition home or self-care (01) ==
LOC: ER 22:22
DX: M25.512 Pain in left shoulder (principal); F41.9 Anxiety disorder, unspecified; F31.9 Bipolar disorder, unspecified; I10 Essential (primary) hypertension; E03.9 Hypothyroidism, unspecified; Z88.5 Allergy status to narcotic agent; Z91.040 Latex allergy status; X50.9XXA Other and unspecified overexertion or strenuous movements or postures, initial encounter; Y93.B3 Activity, free weights; Y99.8 Other external cause status; Y92.89 Other specified places as the place of occurrence of the external cause
CPT/HCPCS: 73030; 99284; Q0169

== ENCOUNTER 2018-07-30 20:13 | Emergency (ER) | payer OTHER ==
[~2018-07-30] VITALS: Ht 175.3 cm; Wt 89.4 kg
[~2018-07-30 20:13] MED LIST changes: +HYDR-971 PO; +PROM25TA10 PO
--- NOTE | 2018-07-30 20:25 | ED.ADGEN ---
Past History Past Medical History: Anxiety, Bipolar, Depression, Hypertension Past Surgical History: Cholecystectomy, , Gastric Bypass Smoking: Non-smoker Alcohol Use: None Drug Use: None Adult General Chief Complaint Chief Complaint " .. I fell the other day... and I am still sore..." HPI HPI Patient is a 52 year old female who presents with above hx and complaints of fall two days ago. Pt. has large ecchymotic area on Rt flank and Rt. leg each excess of 12 cm x 4 cm.. Pt. has rib tenderness and some hepatic tenderness. Old abd. surgical scars. Pt. has Rt. hip pain with palpation. Distal neural vascular intact. No recent travel, ill contacts or changes in meds. Pt. Has hx of Renal insuf. , Hypothyroid and gait disorder. History of anxiety, history of bipolar, history of depression, history of hypertension, history of kidney disorder with frequent falls. Pt. normally follows at [facility]. Pt. gastric wt. loss surgery reversed on 07/19. Review of Systems Review of Systems Constitutional: Denies fever or chills [] Eyes: Denies change in visual acuity, redness, or eye pain [] HENT: Denies nasal congestion or sore throat [] Respiratory: Denies cough or shortness of breath []Chest wall tenderness on Rt. Cardiovascular: No additional information not addressed in HPI [] GI: Hx. of abdominal pain, nausea, denies vomiting, bloody stools or diarrhea [ ] Rt. upper quadrant tenderness. : Denies dysuria or hematuria [] Musculoskeletal: Denies back pain or joint pain []Rt. Hip and Thigh tenderness. Integument: Denies rash or skin lesions [] Neurologic: Denies headache, focal weakness or sensory changes [] Endocrine: Denies polyuria or polydipsia [] All other systems were reviewed and found to be within normal limits, except as documented in this note. Family History Family History Non-contributory Current Medications Current Medications Current Medications Medications (Trade) Dose Ordered Sig/Kristy Start Time Stop Time Status Last Admin Dose Admin Famotidine (Pepcid Vial) 20 mg 1X ONCE 07/30/18 22:00 07/30/18 22:01 DC 07/30/18 22:35 20 MG Info (Do NOT chart on this entry -- for MONITORING) 1 each PRN DAILY PRN 07/30/18 23:15 07/31/18 02:56 DC Iohexol (Omnipaque 240 Mg/ml) 30 ml 1X ONCE 07/30/18 23:30 07/30/18 23:31 DC 07/31/18 00:57 30 ML Iohexol (Omnipaque 300 Mg/ml) 75 ml 1X ONCE 07/30/18 22:00 07/30/18 22:01 DC 07/31/18 00:57 75 ML Lactated Ringer's 1,000 ml @ 160 mls/hr 1X ONCE 07/31/18 02:00 07/31/18 02:56 DC 07/31/18 01:37 160 MLS/HR Morphine Sulfate (Morphine 10mg Syringe) 10 mg STK-MED ONCE 07/31/18 02:24 07/31/18 02:25 DC Ondansetron HCl (Zofran) 8 mg 1X ONCE 07/30/18 22:00 07/30/18 22:01 DC 07/30/18 22:33 8 MG Allergies Allergies Allergies Coded Allergies Type Severity Reaction Last Updated Verified codeine Allergy Intermediate rash 05/11/14 No latex Allergy Intermediate rash 05/11/14 No Physical Exam Physical Exam Constitutional: Moderately acute distress, non-toxic appearance. [] HENT: Normocephalic, atraumatic, bilateral external ears normal, oropharynx moist, no oral exudates, nose normal. [] Eyes: PERRLA, EOMI, conjunctiva normal, no discharge. [] Glasses Neck: Normal range of motion, no tenderness, supple, no stridor. [] Cardiovascular:Heart rate regular rhythm, no murmur [] Lungs & Thorax: Bilateral breath sounds equal at apex, basilar crackles on auscultation []Rt. chest wall tenderness. Abdomen: Bowel sounds normal, soft, Rt upper abd. tenderness, no masses, no pulsatile masses. []Scars. Skin: Warm, dry, no erythema, no rash. [] Contusion to Rt. flank and Rt. femur- as per HPI Back: No tenderness, no CVA tenderness. [] Extremities:. no cyanosis, no clubbing, ROM intact, no edema. [] Rt. Hip and Femur tenderness. Neurologic: Alert and oriented X 3, normal motor function, normal sensory function, no focal deficits noted. [] Psychologic: Affect anxious, judgement normal, mood normal. [] Current Patient Data Vital Signs Vital Signs Date Time Temp Pulse Resp B/P (MAP) Pulse Ox O2 Delivery O2 Flow Rate FiO2 07/31/18 02:31 18 98 07/31/18 02:31 75 131/82 (98) Room Air 07/30/18 20:25 98.2 Lab Results Laboratory Tests Test 07/30/18 22:25 07/30/18 22:50 07/30/18 23:42 White Blood Count 4.8 x10^3/uL (4.0-11.0) Red Blood Count 4.24 x10^6/uL (3.50-5.40) Hemoglobin 11.6 g/dL (12.0-15.5) L Hematocrit 35.8 % (36.0-47.0) L Mean Corpuscular Volume 84 fL (79-100) Mean Corpuscular Hemoglobin 27 pg (25-35) Mean Corpuscular Hemoglobin Concent 32 g/dL (31-37) Red Cell Distribution Width 14.2 % (11.5-14.5) Platelet Count 268 x10^3/uL (140-400) Neutrophils (%) (Auto) 56 % (31-73) Lymphocytes (%) (Auto) 34 % (24-48) Monocytes (%) (Auto) 7 % (0-9) Eosinophils (%) (Auto) 2 % (0-3) Basophils (%) (Auto) 2 % (0-3) Neutrophils # (Auto) 2.7 x10^3uL (1.8-7.7) Lymphocytes # (Auto) 1.6 x10^3/uL (1.0-4.8) Monocytes # (Auto) 0.3 x10^3/uL (0.0-1.1) Eosinophils # (Auto) 0.1 x10^3/uL (0.0-0.7) Basophils # (Auto) 0.1 x10^3/uL (0.0-0.2) Urine Collection Type Unknown Urine Color Yellow Urine Clarity Hazy Urine pH 6.0 Urine Specific [place] >=1.030 Urine Protein 100 mg/dl (NEG-TRACE) Urine Glucose (UA) Neg mg/dL (NEG) Urine Ketones (Stick) 40 mg/dL (NEG) Urine Blood Neg (NEG) Urine Nitrite Neg (NEG) Urine Bilirubin Neg (NEG) Urine Urobilinogen Dipstick 1 mg/dL (0.2 mg/dL) Urine Leukocyte Esterase Neg (NEG) Urine RBC 0 /HPF (0-2) Urine WBC Occ /HPF (0-4) Urine Squamous Epithelial Cells Many /LPF Urine Bacteria Many /HPF (0-FEW) Urine Opiates Screen Pos (NEG) Urine Methadone Screen Neg (NEG) Urine Barbiturates Neg (NEG) Urine Phencyclidine Screen Neg (NEG) Urine Amphetamine/Methamphetamine Neg (NEG) Urine Benzodiazepines Screen Pos (NEG) Urine Cocaine Screen Neg (NEG) Urine Cannabinoids Screen Neg (NEG) Urine Ethyl Alcohol Neg (NEG) Prothrombin Time 10.4 SEC (9.4-11.4) Prothrombin Time INR 1.0 (0.9-1.1) PTT 23 SEC (23-33) Sodium Level 138 mmol/L (136-145) Potassium Level 3.6 mmol/L (3.5-5.1) Chloride Level 102 mmol/L (98-107) Carbon Dioxide Level 31 mmol/L (21-32) Anion Gap 5 (6-14) L Blood Urea Nitrogen 15 mg/dL (7-20) Creatinine 1.6 mg/dL (0.6-1.0) H Estimated GFR (Cockcroft-Gault) 41.3 Glucose Level 82 mg/dL (70-99) Calcium Level 9.0 mg/dL (8.5-10.1) Total Bilirubin 0.5 mg/dL (0.2-1.0) Direct Bilirubin 0.1 mg/dL (0.0-0.2) Aspartate Amino Transferase (AST) 12 U/L (15-37) L Alanine Aminotransferase (ALT) 22 U/L (14-59) Alkaline Phosphatase 90 U/L (46-116) Total Protein 7.0 g/dL (6.4-8.2) Albumin 3.3 g/dL (3.4-5.0) L Lipase 64 U/L (73-393) L EKG EKG My interpretation EKG shows a sinus rhythm at 77 bpm. No acute morphology ,mild leftward axis[] Radiology/Procedures Radiology/Procedures My interpretation of acute abdomen film shows[] shows no acute cardiopulmonary findings of pneumothorax there is atelectasis on the left. There is elevated diaphragm on the left. Borderline cardiomegaly. Has clips in right upper abdomen. Increased bowel gas. A few isolated bowel loops. There is stool in the colon. Pelvis shows no obvious fracture or dislocation. Right femur shows no obvious fracture dislocation. CT results pending at 1:[address] results no surgical pathology appreciated at this time. Recommend follow- up CT or MRI to evaluate area and pancreas. Does show areas of contusion and subcutaneous tissue chest and leg as on physical exam.- Course & Med Decision Making Course & Med Decision Making Pertinent Labs and Imaging studies reviewed. (See chart for details) Ice packs as needed. Follow up with primary. Tylenol and ibuprofen for pain. Marked discomfort may take Percocet up to 4 times a day. Narcotic med risks discussed at length. Follow-up primary care. Review CT and x-rays with primary. Return if any concerns. [] Final Impression Final Impression 1. Fall[]- 2. Hx. Gastric surgery- reduction of gastric weight loss surgery 3. Hx of Renal Insuf. 4. Right hip and thigh , right abdomen and chest contusions, 5. [id number] 6. Elevated Creat 1.6- Dragon Disclaimer Dragon Disclaimer This electronic medical record was generated, in whole or in part, using a voice recognition dictation system. MITCHEL SOSA MD Jul 30, 2018 20:25
[2018-07-30] MEDS ORDERED: CONTRAST GIVEN MC PRN ×2 (21:45→23:15)
[2018-07-30] MEDS ORDERED: IV RINGERS SOLUTION,LACTATED 1,000 ML IV SCH (22:00)
[2018-07-30] MEDS ORDERED: ONDANSETRON PF 4 MG/2 ML VIAL. IV ONE (22:00)
[2018-07-30] MEDS ORDERED: IOHEXOL 300 MG/ML 75 ML VIAL. IV ONE (22:00)
[2018-07-30] MEDS ORDERED: MORPHINE SULFATE 10 MG/ML SYRINGE. SQ ONE (22:00)
[2018-07-30] MEDS ORDERED: FAMOTIDINE 20 MG/2 ML VIAL IVP ONE (22:00)
[2018-07-30 22:45] LABS: BASO # 0.1 x10^3/uL (0.0-0.2); BASO % 2 % (0-3); EOS # 0.1 x10^3/uL (0.0-0.7); EOS % 2 % (0-3); HEMATOCRIT 35.8 % (36.0-47.0); HEMOGLOBIN 11.6 g/dL (12.0-15.5); LYMPH # 1.6 x10^3/uL (1.0-4.8); LYMPH % 34 % (24-48); MEAN CORPUSCULAR HEMOGLOBIN 27 pg (25-35); MEAN CORPUSCULAR HGB CONC 32 g/dL (31-37); MEAN CORPUSCULAR VOLUME 84 fL (79-100); MONO # 0.3 x10^3/uL (0.0-1.1); MONO % 7 % (0-9); NEUT # 2.7 x10^3uL (1.8-7.7); NEUT % 56 % (31-73); PLATELET COUNT 268 x10^3/uL (140-400); RED BLOOD COUNT 4.24 x10^6/uL (3.50-5.40); RED CELL DISTRIBUTION WIDTH 14.2 % (11.5-14.5); WHITE BLOOD COUNT 4.8 x10^3/uL (4.0-11.0)
[2018-07-30 23:16] LABS: BARBITURATES NEG (NEG); BENZODIAZEPINES POS (NEG); CANNABINOIDS NEG (NEG); COCAINE NEG (NEG); METHADONE NEG (NEG); OPIATES POS (NEG); PHENCYCLIDINE NEG (NEG)
[2018-07-30 23:17] LABS: AMPHETAMINE/METHAMPHETAMINE NEG (NEG)
[2018-07-30 23:21] LABS: BILIRUBIN,URINE NEG (NEG); CLARITY,URINE HAZY; COLOR,URINE YELLOW; GLUCOSE,URINE NEG (NEG)
[2018-07-30 23:22] LABS: BACTERIA,URINE MANY /HPF (0-FEW); NITRITE,URINE NEG (NEG); RBC,URINE 0 /HPF (0-2); SQUAMOUS EPITHELIAL CELL,UR MANY /LPF; UROBILINOGEN,URINE 1 mg/dL (0.2 mg/dL); WBC,URINE OCC /HPF (0-4)
[2018-07-30] MEDS ORDERED: IOHEXOL 240 MG/ML 50ML VIAL. PO ONE (23:30)
--- NOTE | 2018-07-31 00:01 | NUR ---
Change to LR administration rate for SECOND LR order Second bag of 1,000mL LR originally ordered by MD Gentry, at rate of 160mL/hr. Given creatinine of 1.6 and administration of IV contrast, Gentry gave verbal order to change administration rate to 1,000mL BOLUS. Jess Romero read back order and administered fluid at BOLUS rate. Will continue to monitor. Jess Romero RN
[2018-07-31 00:08] LABS: ALBUMIN 3.3 g/dL (3.4-5.0); CREATININE 1.6 mg/dL (0.6-1.0); DIRECT BILIRUBIN 0.1 mg/dL (0.0-0.2); GFR 41.3; POTASSIUM 3.6 mmol/L (3.5-5.1); TOTAL BILIRUBIN 0.5 mg/dL (0.2-1.0)
--- NOTE | 2018-07-31 00:09 | RAD ---
AP and lateral right femur radiographs to include an AP pelvis radiograph 07/30/2018 CLINICAL HISTORY: Patient fell out of bed striking wall. Pelvis and right upper leg pain. An AP digital radiograph of the pelvis to include both hips was obtained. 2 AP and 2 lateral digital radiographs of the right femur were obtained. No pelvic bone fracture is seen. Both hips are intact. No fracture or dislocation right femur is seen. Calcifications are seen within the pelvis consistent with phleboliths. Mild to moderate degenerative changes are seen involving both hips along with the right knee. IMPRESSION: No fracture or dislocation is seen. Electronically signed by: Blaise Caballero MD (07/31/2018 12:05 AM) [facility]
--- NOTE | 2018-07-31 00:11 | RAD ---
Acute abdominal series to include a PA chest radiograph 07/30/2018 Clinical History: Right-sided chest and abdominal pain. A PA digital radiograph of the chest was obtained. Supine and erect AP digital radiographs of the abdomen/pelvis were obtained. Comparison study is dated 03/02/2018. The cardiac silhouette is borderline enlarged. The thoracic aorta is mildly tortuous. A linear band of subsegmental atelectasis and/or scarring is seen involving the left lower lobe. No area of consolidation is seen. No pleural effusion or pneumothorax is noted. Surgical clips are seen near the GE junction within the right upper quadrant of the abdomen. The abdominal bowel gas pattern is nonobstructive. There is no evidence of free air. No radiopaque calculus is seen. Degenerative changes are seen involving the thoracic and lumbar spine and both hips. IMPRESSION: Nonobstructive bowel gas pattern. Electronically signed by: Blaise Caballero MD (07/31/2018 12:07 AM) [facility]
[2018-07-31] MEDS ORDERED: IV RINGERS SOLUTION,LACTATED 1,000 ML IV ONE ×2 (00:30→02:00)
[2018-07-31] MEDS ORDERED: OXYC-323 PO (01:40)
--- NOTE | 2018-07-31 02:14 | RAD ---
INDICATION: Omni 300 60cc: Fall off bed, hit wall, Lt spleen, chest .abd. pain, post op stomach surgery 2 weeks ago Hx: Cholecystectomy,hysterectomy, appendectomy COMPARISON: November 01, 2017 chest TECHNIQUE: Axial CT images obtained through the chest abdomen and pelvis with contrast. One or more of the following individualized dose reduction techniques were utilized for this examination: 1. Automated exposure control; 2. Adjustment of the mA and/or kV according to patient size; 3. Use of iterative reconstruction technique. FINDINGS: Chest: No evidence of pneumothorax. 3 mm subpleural nodule right lower lung anteriorly. Scattered calcified plaque without thoracic aortic aneurysm. Ascending thoracic aorta partially obscured by motion. Small fluid in pericardial recess which is a common finding. Mild degenerative changes spine. Mild angulation of the left 10th rib anterolaterally. Induration subcutaneous fat right lower back. Abdomen and pelvis: Abdominal aorta is not aneurysmal. Calcific atherosclerosis is identified. Prominence of bile ducts postcholecystectomy which is a common finding. No peripancreatic hemorrhage. Questionable 5 mm low-density lesion anterior aspect of the proximal pancreatic body. No perisplenic hemorrhage. Thickening of the left adrenal gland. No left-sided hydronephrosis. Urinary bladder is largely decompressed the time of exam. No right-sided hydronephrosis. Appendix does not appear inflamed. No dilated loops of bowel to suggest obstruction. Degenerative changes of spine. IMPRESSION: 1. No CT evidence of solid organ or vascular injury. 2. Subcutaneous induration at the lower back. Could be secondary to flank contusion. 3. Questionable small low-density lesion within the pancreas. Could be helpful to obtain a follow-up pancreatic protocol MRI to ensure that there is not a small pancreatic lesion. This could also be secondary to some fat within the pancreas. 4. Minimal angulation of the left 10th rib anterolaterally. Would correlate with point tenderness to ensure that there is not a fracture. Electronically signed by: Toni Vallecillo MD (07/31/2018 2:10 AM) [facility]
[2018-07-31] MEDS ORDERED: MORPHINE SULFATE 10 MG/ML SYRINGE. ONE (02:24)
[2018-07-31 02:31] VITALS: BP 131/82
[2018-07-31] MEDS ORDERED: MORPHINE SULFATE 10 MG/ML SYRINGE. SQ ONE (03:00)
--- NOTE | 2018-07-31 04:04 | EKG ---
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
== END 2018-07-31 02:38 | disposition home or self-care (01) ==
LOC: ER 20:13
DX: S20.211A Contusion of right front wall of thorax, initial encounter (principal); S70.01XA Contusion of right hip, initial encounter; S70.11XA Contusion of right thigh, initial encounter; S30.1XXA Contusion of abdominal wall, initial encounter; D64.9 Anemia, unspecified; N28.9 Disorder of kidney and ureter, unspecified; F41.9 Anxiety disorder, unspecified; F31.9 Bipolar disorder, unspecified; I10 Essential (primary) hypertension; Z90.49 Acquired absence of other specified parts of digestive tract; Z98.890 Other specified postprocedural states; Z98.84 Bariatric surgery status; W19.XXXA Unspecified fall, initial encounter; Y93.89 Activity, other specified; Y92.89 Other specified places as the place of occurrence of the external cause; Y99.8 Other external cause status
CPT/HCPCS: 36415; 71260; 72170; 73552; 74022; 74177; 80048; 80076; 80307; 81001; 83690; 85025; 85610; 85730; 87086; 93005; 96372; 96374; 96375; 99285; J2270; J2405; J7120; Q9966; Q9967; S0028; 96361; G0479

== ENCOUNTER 2018-08-16 07:51 | Emergency (ER) | payer OTHER ==
[~2018-08-16] VITALS: Ht 175.3 cm; Wt 85.3 kg
[~2018-08-16 07:51] MED LIST changes: +OXYC-323 PO
[2018-08-16 08:15] VITALS: BP 115/71
[2018-08-16] MEDS ORDERED: HYDROcodone/APAP 5/325MG 1 TAB TABLET PO ONE (08:15)
--- NOTE | 2018-08-16 08:19 | PHYS DOC ---
Past History Past Medical History: Anxiety, Bipolar, Depression, Hypertension Past Surgical History: Cholecystectomy, , Gastric Bypass Additional Past Surgical Histo: foot surg Smoking: Non-smoker Alcohol Use: None Drug Use: None Adult General Chief Complaint Chief Complaint: HEAD INJURY/TRAUMA HPI HPI This is a pleasant 52-year-old female presenting to the emergency department after sustaining head injury last night when she fell out of bed. She hit the front of her forehead. She denies loss of consciousness is on blood thinners denies neck pain. She has had a headache over the past 48 hours even before she hit her head and continues to have a headache. She drives a headache is mild to moderate nonradiating similar to previous headaches and not sudden in onset. Review of systems is negative for chest pain shortness of breath neck pain abdominal pain. All other review of systems is negative unless otherwise noted in history of present illness. ED course: 52-year-old female presenting with head injury. Mild tenderness on the forehead otherwise neck is nontender with normal range of motion. Head CT obtained which was unremarkable.The patient has been examined and was not found to have an emergency medical condition. The patient was then discharged home in stable condition to follow up with their primary care physician over the next 2- 3 days. They were to return if their symptoms worsened or if they were concerned for any reason. They were also instructed to return to the emergency department if they were unable to get the recommended and appropriate follow- up. [id number] discharge instructions and return precautions were given. Patient's questions were answered to their satisfaction. Patient is comfortable with plan. Review of Systems Review of Systems SEE ABOVE. Current Medications Current Medications Current Medications Medications (Trade) Dose Ordered Sig/Kristy Start Time Stop Time Status Last Admin Dose Admin Acetaminophen/ Hydrocodone Bitart (Lortab 5/325) 2 tab 1X ONCE 08/16/18 08:15 08/16/18 08:16 UNV Allergies Allergies Allergies Coded Allergies Type Severity Reaction Last Updated Verified codeine Allergy Intermediate rash 05/11/14 No latex Allergy Intermediate rash 05/11/14 No Physical Exam Physical Exam SEE ABOVE Constitutional: Well developed, well nourished, no acute distress, non-toxic appearance. [] HENT: Normocephalic, atraumatic, bilateral external ears normal, oropharynx moist, no oral exudates, nose normal. [] Eyes: PERRLA, EOMI, conjunctiva normal, no discharge. [] Neck: Normal range of motion, no tenderness, supple, no stridor. [] Cardiovascular:Heart rate regular rhythm, no murmur [] Lungs & Thorax: Bilateral breath sounds clear to auscultation [] Abdomen: Bowel sounds normal, soft, no tenderness, no masses, no pulsatile masses. [] Skin: Warm, dry, no erythema, no rash. [] Back: No tenderness, no CVA tenderness. [] Extremities: No tenderness, no cyanosis, no clubbing, ROM intact, no edema. [] Neurologic: Mental status: Awake oriented and alert x3 Cranial nerves: Extraocular movements intact, eyebrows lambert bilaterally, smile symmetric, uvula elevation nl, shoulder shrug intact bilaterally, tongue protrusion normal DTRs: 2+ Sensation: equal and normal in all extremities Strength: 5/5 in upper and lower extremities bilaterally Psychologic: Affect normal, judgement normal, mood normal. [] EKG EKG [] Radiology/Procedures Radiology/Procedures [] Course & Med Decision Making Course & Med Decision Making Pertinent Labs and Imaging studies reviewed. (See chart for details) [] Dragon Disclaimer Dragon Disclaimer This electronic medical record was generated, in whole or in part, using a voice recognition dictation system. Departure Departure: Impression: Primary Impression: Head injury Disposition: 01 HOME, SELF-CARE Condition: STABLE Referrals: SANDEE BUTLER MD (PCP) Patient Instructions: Concussion and Brain Injury, [id number], Head Injury, Adult Additional Instructions: Thank you for allowing us to participate in your care today. Return to the emergency department you have any new or worsening symptoms, or if you are concerned for any reason. Return to emergency department if you have any new or concerning symptoms including but not limited to fever, chills, nausea, vomiting, intractable pain, any new rashes, chest pain, shortness of air , uncontrolled bleeding, difficulty breathing, and/or vision loss. Follow up with your primary care physician within 3 days. Call your Primary Doctor tomorrow and inform them of your visit today. If you do not have a primary care provider we are happy to provide you with a list of our primary care providers contact information. This condition should be evaluated by your primary care physician and any recommended consulting services for continued management within 2-3 days after discharge. If at any time, you are having difficulty getting into your primary care doctor or a specialist, return to the emergency department. You may have been prescribed medication or given medication in the emergency department that can change in your level of thinking and ability to operate machinery. Many prescribed medications can cause this. Some commonly prescribed medications include hydrocodone, ativan, and benadryl. Be sure to check with your pharmacist and ask if the medications you've prescribed can affect your level of consciousness. I recommend not operating heavy machinery or driving while on medication such as these. MADHAVI GOODSON MD Aug 16, 2018 08:19
--- NOTE | 2018-08-16 08:50 | RAD ---
CT of the head without contrast, 08/16/2018: HISTORY: Fall, 4 head injury The ventricles are within normal limits in size. There is no shift of the midline structures. There is no evidence of acute intracranial hemorrhage or mass effect. The bone windows show no abnormality. IMPRESSION: No acute intracranial abnormality is detected. CT of the facial bones without contrast, 08/16/2018: Noncontrast scans were obtained with multiplanar reconstructions produced. No fracture is identified. No free fluid is evident in the paranasal sinuses. The orbital contents are unremarkable. IMPRESSION: No acute facial bone abnormality is detected. PQRS Compliance Statement: One or more of the following individualized dose reduction techniques were utilized for this examination: 1. Automated exposure control 2. Adjustment of the mA and/or kV according to patient size 3. Use of iterative reconstruction technique Electronically signed by: Balwinder Dale MD (08/16/2018 8:47 AM) [facility]
[2018-08-16] MEDS ORDERED: ONDA4TAB7 PO (09:02)
== END 2018-08-16 09:05 | disposition home or self-care (01) ==
LOC: ER 07:51
DX: S09.90XA Unspecified injury of head, initial encounter (principal); I10 Essential (primary) hypertension; Z88.5 Allergy status to narcotic agent; Z91.040 Latex allergy status; W06.XXXA Fall from bed, initial encounter; Y93.89 Activity, other specified; Y92.89 Other specified places as the place of occurrence of the external cause; Y99.8 Other external cause status
CPT/HCPCS: 70450; 70486; 99284-25

== ENCOUNTER 2018-12-31 14:34 | Emergency (ER) | payer OTHER ==
[~2018-12-31] VITALS: Ht 175.3 cm; Wt 84.8 kg
[~2018-12-31 14:34] MED LIST changes: +ALBU2.5V8 IH; -ALBU6.7H IH; +HYDR-3165 PO; -HYDR-971 PO; +ONDA4TAB7 PO; -OXYC-323 PO; +OXYC1TAB15 PO
[2018-12-31] MEDS ORDERED: KETOROLAC 15 MG/ML VIAL. IV ONE (15:00)
[2018-12-31] MEDS ORDERED: METOCLOPRAMIDE HCL 10 MG/2 ML VIAL. IV ONE ×2 (15:00→17:00)
[2018-12-31] MEDS ORDERED: diphenhydrAMINE 50 MG/ML VIAL IVP ONE ×2 (15:00→17:00)
[2018-12-31] MEDS ORDERED: IV NORMAL SALINE 1,000ML 1,000 ML IV ONE ×2 (15:00→17:45)
--- NOTE | 2018-12-31 15:03 | PHYS DOC ---
Past History Past Medical History: Anxiety, Bipolar, Depression, High Cholesterol, Hypertension, Other Past Surgical History: Cholecystectomy, , Gastric Bypass Additional Past Surgical Histo: foot surg Smoking: Non-smoker Alcohol Use: None Drug Use: None Adult General Chief Complaint Chief Complaint: NAUSEA/VOMITING/DIARRHEA HPI HPI 53-year-old female presents with 3 day history of vomiting. Patient started throwing up Monday and is had a difficult time keeping even fluids down at all. Today she is unable to keep down fluids. She also has a frontal headache and is feeling weak overall. She is concerned about dehydration and possibly other problems. She has had a small amount of diarrhea. He is unsure if sick contacts. She has some left lower quadrant abdominal pain that is mild and crampy. She has not had a fever at home. Review of Systems Review of Systems Constitutional: Denies fever or chills [] Eyes: Denies change in visual acuity, redness, or eye pain [] HENT: Denies nasal congestion or sore throat [] Respiratory: Denies cough or shortness of breath [] Cardiovascular: No additional information not addressed in HPI [] GI: Left lower quadrant abdominal pain, nausea, vomiting, diarrhea.[] : Denies dysuria or hematuria [] Musculoskeletal: Denies back pain or joint pain [] Integument: Denies rash or skin lesions [] Neurologic: Headache. Denies focal weakness or sensory changes [] Endocrine: Denies polyuria or polydipsia [] All other systems were reviewed and found to be within normal limits, except as documented in this note. Current Medications Current Medications Current Medications Medications (Trade) Dose Ordered Sig/Kristy Start Time Stop Time Status Last Admin Dose Admin Diphenhydramine HCl (Benadryl) 25 mg 1X ONCE 12/31/18 15:00 12/31/18 15:01 Ketorolac Tromethamine (Toradol 15mg Vial) 15 mg 1X ONCE 12/31/18 15:00 12/31/18 15:01 Metoclopramide HCl (Reglan Vial) 10 mg 1X ONCE 12/31/18 15:00 12/31/18 15:01 Sodium Chloride 1,000 ml @ 1,000 mls/hr 1X ONCE 12/31/18 15:00 12/31/18 15:59 Allergies Allergies Allergies Coded Allergies Type Severity Reaction Last Updated Verified codeine Allergy Intermediate rash 05/11/14 No latex Allergy Intermediate rash 05/11/14 No Physical Exam Physical Exam Constitutional: Well developed, well nourished, no acute distress, non-toxic appearance. [] HENT: Normocephalic, atraumatic, bilateral external ears normal, oropharynx dry , no oral exudates, nose normal. [] Eyes: PERRLA, EOMI, conjunctiva normal, no discharge. [] Neck: Normal range of motion, no tenderness, supple, no stridor. [] Cardiovascular:Heart rate regular rhythm, no murmur [] Lungs & Thorax: Bilateral breath sounds clear to auscultation [] Abdomen: Mild left lower quadrant pain[] Skin: Warm, dry, no erythema, no rash. [] Back: No tenderness, no CVA tenderness. [] Extremities: No tenderness, no cyanosis, no clubbing, ROM intact, no edema. [] Neurologic: Alert and oriented X 3, normal motor function, normal sensory function, no focal deficits noted. [] Psychologic: Affect normal, judgement normal, mood normal. [] Current Patient Data Vital Signs Vital Signs Date Time Temp Pulse Resp B/P (MAP) Pulse Ox O2 Delivery O2 Flow Rate FiO2 12/31/18 14:40 98.2 91 16 98 Room Air EKG EKG [] Radiology/Procedures Radiology/Procedures [] Impressions: EXAM: Head CT without contrast. HISTORY: Headache. Photophobia. TECHNIQUE: Computed tomographic images of the head were obtained without contrast. *One or more of the following individualized dose reduction techniques were utilized for this examination: 1. Automated exposure control. 2. Adjustment of the mA and/or kV according to patient size. 3. Use of iterative reconstruction technique. COMPARISON: 08/16/2018. FINDINGS: There is no acute or subacute extra-axial or intraparenchymal hemorrhage. There is no mass effect or midline shift. There is no hydrocephalus. There are areas of decreased attenuation within the cerebral white matter, nonspecific and likely related to chronic small vessel disease. The visualized portions of the orbits, paranasal sinuses and mastoid air cells are unremarkable. No suspicious calvarial lesion is seen. There is a small lucent lesion within the left frontal bone likely due to an incidental hemangioma. IMPRESSION: No acute intracranial findings. Electronically signed by: Sarah Shafer MD (12/31/2018 4:41 PM) [facility] DICTATED AND SIGNED BY: SARAH SHAFER MD DATE: 12/31/18 1640 CC: SARA ROSALES DO; SANDEE BUTLER MD Course & Med Decision Making Course & Med Decision Making Pertinent Labs and Imaging studies reviewed. (See chart for details) Patient's labs are unremarkable. She has been given 1 L normal saline, 10 mg of Reglan, 15 mg of Toradol, and 25 mg of Benadryl for her headache. Symptoms not improve the patient's headache. I ordered a head CT which was negative. I ordered an additional 10 mg Reglan and 25 mg of Benadryl. This did not seem to help the patient either. I will give her 75 g fentanyl. The patient was given a second liter of normal saline. Her headache finally dissipated and the patient is ready to go home. She is stable for discharge. [] Dragon Disclaimer Dragon Disclaimer This electronic medical record was generated, in whole or in part, using a voice recognition dictation system. Departure Departure: Impression: Primary Impression: Vomiting Additional Impression: Headache Disposition: 01 HOME, SELF-CARE Condition: STABLE Referrals: SANDEE BUTLER MD (PCP) Patient Instructions: General Headache Without Cause, [id number], Nausea and Vomiting, [id number] Scripts Ondansetron (ONDANSETRON ODT) 4 Mg Tab.rapdis 1 TAB PO PRN Q6-8HRS PRN for VOMITING, #16 TAB Prov: SARA ROSALES DO 12/31/18 Problem Qualifiers Primary Impression: Vomiting Vomiting type: unspecified Vomiting Intractability: intractable Nausea presence: with nausea Qualified Codes: R11.2 - Nausea with vomiting, unspecified Additional Impression: Headache Headache type: other vascular headache Qualified Codes: G44.1 - Vascular headache, not elsewhere classified SARA ROSALES DO Dec 31, 2018 15:03
[2018-12-31 15:26] LABS: BASO # 0.1 x10^3/uL (0.0-0.2); BASO % 1 % (0-3); EOS % 1 % (0-3); HEMATOCRIT 37.1 % (36.0-47.0); HEMOGLOBIN 11.9 g/dL (12.0-15.5); LYMPH # 1.4 x10^3/uL (1.0-4.8); LYMPH % 21 % (24-48); MEAN CORPUSCULAR HEMOGLOBIN 27 pg (25-35); MEAN CORPUSCULAR HGB CONC 32 g/dL (31-37); MEAN CORPUSCULAR VOLUME 85 fL (79-100); MONO # 0.4 x10^3/uL (0.0-1.1); MONO % 7 % (0-9); NEUT # 4.6 x10^3uL (1.8-7.7); NEUT % 71 % (31-73); PLATELET COUNT 219 x10^3/uL (140-400); RED BLOOD COUNT 4.38 x10^6/uL (3.50-5.40); RED CELL DISTRIBUTION WIDTH 15.2 % (11.5-14.5); WHITE BLOOD COUNT 6.5 x10^3/uL (4.0-11.0)
[2018-12-31 15:42] LABS: ALBUMIN 3.6 g/dL (3.4-5.0); ALBUMIN/GLOBULIN RATIO 0.9 (1.0-1.7); CALCIUM 8.9 mg/dL (8.5-10.1); CREATININE 1.3 mg/dL (0.6-1.0); GFR 52.3; POTASSIUM 3.9 mmol/L (3.5-5.1); TOTAL BILIRUBIN 0.6 mg/dL (0.2-1.0); TOTAL PROTEIN 7.7 g/dL (6.4-8.2)
--- NOTE | 2018-12-31 16:44 | RAD ---
EXAM: Head CT without contrast. HISTORY: Headache. Photophobia. TECHNIQUE: Computed tomographic images of the head were obtained without contrast. *One or more of the following individualized dose reduction techniques were utilized for this examination: 1. Automated exposure control. 2. Adjustment of the mA and/or kV according to patient size. 3. Use of iterative reconstruction technique. COMPARISON: 08/16/2018. FINDINGS: There is no acute or subacute extra-axial or intraparenchymal hemorrhage. There is no mass effect or midline shift. There is no hydrocephalus. There are areas of decreased attenuation within the cerebral white matter, nonspecific and likely related to chronic small vessel disease. The visualized portions of the orbits, paranasal sinuses and mastoid air cells are unremarkable. No suspicious calvarial lesion is seen. There is a small lucent lesion within the left frontal bone likely due to an incidental hemangioma. IMPRESSION: No acute intracranial findings. Electronically signed by: Sarah Shafer MD (12/31/2018 4:41 PM) [facility]
[2018-12-31 17:07] VITALS: BP 149/93
[2018-12-31] MEDS ORDERED: ONDA4TAB12 PO (17:24)
[2018-12-31 18:17] LABS: INFLUENZA A PATIENT NEGATIVE (NEGATIVE); INFLUENZA B PATIENT NEGATIVE (NEGATIVE)
== END 2018-12-31 18:31 | disposition home or self-care (01) ==
LOC: ER 14:34
DX: R11.2 Nausea with vomiting, unspecified (principal); G44.1 Vascular headache, not elsewhere classified; R10.32 Left lower quadrant pain; R19.7 Diarrhea, unspecified; F41.9 Anxiety disorder, unspecified; F31.9 Bipolar disorder, unspecified; E78.00 Pure hypercholesterolemia, unspecified; I10 Essential (primary) hypertension; Z90.49 Acquired absence of other specified parts of digestive tract; Z98.890 Other specified postprocedural states; Z98.84 Bariatric surgery status; Z88.5 Allergy status to narcotic agent; Z91.040 Latex allergy status
CPT/HCPCS: 36415; 70450; 80053; 85025; 87804; 96361; 96374; 96375; 96376; 99284; J1200; J1885; J2765; J3010; J7030

== ENCOUNTER 2019-07-13 08:42 | Emergency (ER) | payer OTHER ==
[~2019-07-13] VITALS: Ht 175.3 cm; Wt 89.4 kg
[~2019-07-13 08:42] MED LIST changes: +ONDA4TAB12 PO
[2019-07-13] MEDS ORDERED: KETOROLAC 15 MG/ML VIAL. IM ONE (09:00)
--- NOTE | 2019-07-13 09:00 | PHYS DOC ---
Past History Past Medical History: Anxiety, Bipolar, Depression, High Cholesterol, Hypertension, Other Past Surgical History: Cholecystectomy, , Gastric Bypass Additional Past Surgical Histo: foot surg Smoking: Non-smoker Alcohol Use: None Drug Use: None Adult General Chief Complaint Chief Complaint: MECHANICAL FALL HPI HPI Patient is a 53-year-old female presents complaining of tailbone pain. At approximately 8:00 this morning her step ladder tipped backwards while she was standing on it. Fall of less than 2 feet. She landed on her tailbone. She is able to walk with pain. No home pain medicines been taken. Increased pain with movement. No radiation of the discomfort. Pain is moderate to severe in intensity. Sharp in nature. No head injury. Patient denies being on any blood thinners. No previous history of back surgery.[] Review of Systems Review of Systems Constitutional: Denies fever or chills [] Eyes: Denies change in visual acuity, redness, or eye pain [] HENT: Denies nasal congestion or sore throat [] Respiratory: Denies cough or shortness of breath [] Cardiovascular: No chest pain or palpitations[] GI: Denies abdominal pain, nausea, vomiting, bloody stools or diarrhea [] : Denies dysuria or hematuria [] Musculoskeletal: See history of present illness[] Integument: Denies rash or skin lesions [] Neurologic: Denies headache, focal weakness or sensory changes [] Endocrine: Denies polyuria or polydipsia [] All other systems were reviewed and found to be within normal limits, except as documented in this note. Allergies Allergies Allergies Coded Allergies Type Severity Reaction Last Updated Verified codeine Allergy Intermediate rash 05/11/14 No latex Allergy Intermediate rash 05/11/14 No Physical Exam Physical Exam Constitutional: Well developed, well nourished, mild discomfort, non-toxic appearance. [] HENT: Normocephalic, atraumatic, bilateral external ears normal, oropharynx mo ist, no oral exudates, nose normal. [] Eyes: PERRLA, EOMI, conjunctiva normal, no discharge. [] Neck: Normal range of motion, no tenderness, supple, no stridor. [] Cardiovascular:Heart rate regular rhythm, no murmur [] Lungs & Thorax: Bilateral breath sounds clear to auscultation [] Abdomen: Bowel sounds normal, soft, no tenderness, no masses, no pulsatile masses. [] Skin: Warm, dry, no erythema, no rash. [] Back: Tenderness to palpation in the coccygeal/lower sacral region. There is no step-off, no crepitus. Normal gait. No lumbar tenderness to palpation. no CVA tenderness. [] Extremities: No tenderness, no cyanosis, no clubbing, ROM intact, no edema. [] Neurologic: Alert and oriented X 3, normal motor function, normal sensory function, no focal deficits noted. [] Psychologic: Affect normal, judgement normal, mood normal. [] EKG EKG [] Radiology/Procedures Radiology/Procedures PROCEDURE: SACRUM & COCCYX 3V SACRUM COCCYX 3V History: Fall, tailbone pain Comparison: July 30, 2018 pelvis radiograph Findings: 3 views of the sacrum and coccyx are submitted. Sacroiliac joints are symmetric in appearance. Sacral arcuate lines are preserved by radiographs. No convincing displaced acute fracture is identified by radiographs. Impression: 1. No convincing acute fracture is identified by radiographs. If there is persistent pain and concern for occult fracture, MRI would be more sensitive for detection of marrow edema.[] Course & Med Decision Making Course & Med Decision Making Pertinent Labs and Imaging studies reviewed. (See chart for details) ED course: Patient arrived, was placed in bed, and tolerated exam well. She was transported to and from radiology with any complications. She received parenteral pain medication which didn't improve her discomfort. After the laboratory and imaging findings were resulted, these were discussed with the patient voiced understanding. All questions were answered. She was discharged in improved condition. Medical decision making: There is no evidence of cauda equina syndrome, open fracture, nor any neurologic or vascular compromise. No evidence of a fracture.[] Dragon Disclaimer Dragon Disclaimer This electronic medical record was generated, in whole or in part, using a voice recognition dictation system. Departure Departure: Impression: Primary Impression: Coccyx contusion Disposition: HOME, SELF-CARE Condition: IMPROVED Referrals: SANDEE BUTLER MD (PCP) Follow-up in 2 days Patient Instructions: Tailbone Injury Additional Instructions: Follow-up with your regular doctor in 2 days. Return to the ER if worsening pain, weakness, or any other concerns. Scripts Hydrocodone Bit/Acetaminophen (NORCO 5-325 TABLET) 1 Each Tablet 1 TAB PO Q4-6HRS for severe pain, #20 TAB Prov: RAJIV BOB DO 07/13/19 Meloxicam (MELOXICAM) 7.5 Mg Tablet 7.5 MG PO DAILY for PAIN, #20 TAB Prov: RAJIV BOB DO 07/13/19 Problem Qualifiers Primary Impression: Coccyx contusion Encounter type: initial encounter Qualified Codes: S30.0XXA - Contusion of lower back and pelvis, initial encounter RAJIV BOB DO Jul 13, 2019 09:00
[2019-07-13 09:02] VITALS: BP 101/63
[2019-07-13 09:36] LABS: BILIRUBIN,URINE NEG (NEG); CLARITY,URINE CLEAR; COLOR,URINE YELLOW; GLUCOSE,URINE NEG (NEG); NITRITE,URINE NEG (NEG); UROBILINOGEN,URINE 0.2 mg/dL (0.2 mg/dL)
--- NOTE | 2019-07-13 09:41 | RAD ---
SACRUM COCCYX 3V History: Fall, tailbone pain Comparison: July 30, 2018 pelvis radiograph Findings: 3 views of the sacrum and coccyx are submitted. Sacroiliac joints are symmetric in appearance. Sacral arcuate lines are preserved by radiographs. No convincing displaced acute fracture is identified by radiographs. Impression: 1. No convincing acute fracture is identified by radiographs. If there is persistent pain and concern for occult fracture, MRI would be more sensitive for detection of marrow edema. Electronically signed by: Rene Schreiber MD (07/13/2019 9:38 AM) [facility]
[2019-07-13] MEDS ORDERED: MELO7.5T29 PO (09:52)
[2019-07-13] MEDS ORDERED: HYDR-3165 PO (09:52)
== END 2019-07-13 09:54 | disposition home or self-care (01) ==
LOC: ER 08:42
DX: S30.0XXA Contusion of lower back and pelvis, initial encounter (principal); F41.9 Anxiety disorder, unspecified; F31.9 Bipolar disorder, unspecified; E78.00 Pure hypercholesterolemia, unspecified; I10 Essential (primary) hypertension; Z90.89 Acquired absence of other organs; Z98.890 Other specified postprocedural states; Z98.84 Bariatric surgery status; Z88.5 Allergy status to narcotic agent; Z91.040 Latex allergy status; W11.XXXA Fall on and from ladder, initial encounter; Y93.89 Activity, other specified; Y92.89 Other specified places as the place of occurrence of the external cause; Y99.8 Other external cause status
CPT/HCPCS: 72220; 81003; 81025; 96372; 99284; J1885

== ENCOUNTER 2019-07-18 20:32 | Emergency (ER) | payer OTHER ==
[~2019-07-18] VITALS: Ht 175.3 cm; Wt 89.4 kg
[~2019-07-18 20:32] MED LIST changes: +MELO7.5T29 PO
--- NOTE | 2019-07-18 21:10 | PHYS DOC ---
Past History Past Medical History: Anxiety, Bipolar, Depression, High Cholesterol, Hypertension, Other Past Surgical History: Cholecystectomy, , Gastric Bypass Additional Past Surgical Histo: foot surg Smoking: Non-smoker Alcohol Use: None Drug Use: None Adult General Chief Complaint Chief Complaint: MECHANICAL FALL HPI HPI 53-year-old female presents after falls at home. The patient's had several falls in the last few days. She tells me that most of them happen at night. She'll get up to go to the bathroom and then she will start falling and is unable to catch herself. She falls into a chair or the wall of the floor. She was recently seen in this emergency room for bruised tailbone. She presents today because she fell 2 more times today and hit her head. Her family that accompanies her is concerned about her head. The patient tells me that she is on multiple medications for bipolar. She is also on Percocet for chronic back pain. Patient denies fever or chills. Review of Systems Review of Systems Constitutional: Falls. Denies fever or chills [] Eyes: Denies change in visual acuity, redness, or eye pain [] HENT: Denies nasal congestion or sore throat [] Respiratory: Denies cough or shortness of breath [] Cardiovascular: No additional information not addressed in HPI [] GI: Denies abdominal pain, nausea, vomiting, bloody stools or diarrhea [] : Denies dysuria or hematuria [] Musculoskeletal: Tailbone pain, left low back pain[] Integument: Denies rash or skin lesions [] Neurologic: Denies headache, focal weakness or sensory changes [] Endocrine: Denies polyuria or polydipsia [] All other systems were reviewed and found to be within normal limits, except as documented in this note. Allergies Allergies Allergies Coded Allergies Type Severity Reaction Last Updated Verified codeine Allergy Intermediate rash 05/11/14 No latex Allergy Intermediate rash 05/11/14 No Physical Exam Physical Exam Constitutional: Well developed, well nourished, no acute distress, non-toxic appearance. [] HENT: Normocephalic, atraumatic, bilateral external ears normal, oropharynx moist, no oral exudates, nose normal. [] Eyes: PERRLA, EOMI, conjunctiva normal, no discharge. [] Neck: Normal range of motion, no tenderness, supple, no stridor. [] Cardiovascular:Heart rate regular rhythm, no murmur [] Lungs & Thorax: Bilateral breath sounds clear to auscultation [] Abdomen: Bowel sounds normal, soft, no tenderness, no masses, no pulsatile m asses. [] Skin: Warm, dry, no erythema, no rash. [] Back: No tenderness, no CVA tenderness. [] Extremities: No tenderness, no cyanosis, no clubbing, ROM intact, no edema. [] Neurologic: Alert and oriented X 3, normal motor function, normal sensory function, no focal deficits noted. [] Psychologic: Affect flat, judgement normal, mood normal. [] Current Patient Data Vital Signs Vital Signs Date Time Temp Pulse Resp B/P (MAP) Pulse Ox O2 Delivery O2 Flow Rate FiO2 07/18/19 20:46 98.0 103 18 99 Room Air EKG EKG [] Radiology/Procedures Radiology/Procedures [] Impressions: Examination: CT HEAD WO CONTRAST History: Fell, dizziness Comparison/Correlation: 12/31/2018 CT head without contrast Findings: Axial images of the head were obtained without contrast. Atrophy is present. No intracranial hemorrhage, midline shift, or mass effect. No depressed fracture. Left forehead subgaleal hematoma is questioned and small in size. Impression: No intracranial hemorrhage. Minimal left forehead subgaleal hematoma is suspected. This finding is new since 12/31/2018. Correlate with trauma history. PQRS Compliance Statement: One or more of the following individualized dose reduction techniques were utilized for this examination: 1. Automated exposure control 2. Adjustment of the mA and/or kV according to patient size 3. Use of iterative reconstruction technique Electronically signed by: Marilyn Humphreys MD (07/18/2019 9:59 PM) [facility] DICTATED AND SIGNED BY: MARILYN HUMPHREYS MD DATE: 07/18/19 3119 CC: SARA ROSALES DO; SANDEE BUTLER MD ~ Course & Med Decision Making Course & Med Decision Making Pertinent Labs and Imaging studies reviewed. (See chart for details) The patient's head CT is negative for acute findings. Her labs are remarkable for a creatinine 1.8. Review the chart shows a baseline of 1.36-1.6. We have given her a liter of normal saline. The patient would like to go home. I believe this is reasonable. She is stable for discharge at this time. [] Dragon Disclaimer Dragon Disclaimer This electronic medical record was generated, in whole or in part, using a voice recognition dictation system. Departure Departure: Impression: Primary Impression: Fall Additional Impression: Dizziness Disposition: 01 HOME, SELF-CARE Condition: STABLE Referrals: SANDEE BUTLER MD (PCP) Patient Instructions: Dizziness, [id number] Problem Qualifiers SARA ROSALES DO Jul 18, 2019 21:10
[2019-07-18 21:31] LABS: BASO # 0.1 x10^3/uL (0.0-0.2); BASO % 1 % (0-3); EOS # 0.1 x10^3/uL (0.0-0.7); EOS % 2 % (0-3); HEMATOCRIT 38.5 % (36.0-47.0); HEMOGLOBIN 12.5 g/dL (12.0-15.5); LYMPH # 1.9 x10^3/uL (1.0-4.8); LYMPH % 31 % (24-48); MEAN CORPUSCULAR HEMOGLOBIN 29 pg (25-35); MEAN CORPUSCULAR HGB CONC 33 g/dL (31-37); MEAN CORPUSCULAR VOLUME 88 fL (79-100); MONO # 0.5 x10^3/uL (0.0-1.1); MONO % 8 % (0-9); NEUT # 3.7 x10^3uL (1.8-7.7); NEUT % 59 % (31-73); PLATELET COUNT 184 x10^3/uL (140-400); RED BLOOD COUNT 4.39 x10^6/uL (3.50-5.40); RED CELL DISTRIBUTION WIDTH 12.6 % (11.5-14.5); WHITE BLOOD COUNT 6.3 x10^3/uL (4.0-11.0)
[2019-07-18 21:42] LABS: ALBUMIN 3.8 g/dL (3.4-5.0); CALCIUM 8.8 mg/dL (8.5-10.1); CREATININE 1.8 mg/dL (0.6-1.0); GFR 35.9; POTASSIUM 3.4 mmol/L (3.5-5.1); TOTAL BILIRUBIN 0.4 mg/dL (0.2-1.0); TOTAL PROTEIN 7.6 g/dL (6.4-8.2)
--- NOTE | 2019-07-18 22:02 | RAD ---
Examination: CT HEAD WO CONTRAST History: Fell, dizziness Comparison/Correlation: 12/31/2018 CT head without contrast Findings: Axial images of the head were obtained without contrast. Atrophy is present. No intracranial hemorrhage, midline shift, or mass effect. No depressed fracture. Left forehead subgaleal hematoma is questioned and small in size. Impression: No intracranial hemorrhage. Minimal left forehead subgaleal hematoma is suspected. This finding is new since 12/31/2018. Correlate with trauma history. PQRS Compliance Statement: One or more of the following individualized dose reduction techniques were utilized for this examination: 1. Automated exposure control 2. Adjustment of the mA and/or kV according to patient size 3. Use of iterative reconstruction technique Electronically signed by: Chandrakant Abarca MD (07/18/2019 9:59 PM) [facility]
[2019-07-18] MEDS ORDERED: IV NORMAL SALINE 1,000ML 1,000 ML IV ONE (22:15)
[2019-07-18 22:25] LABS: BARBITURATES NEG (NEG); BENZODIAZEPINES NEG (NEG); CANNABINOIDS NEG (NEG); COCAINE NEG (NEG); METHADONE NEG (NEG); OPIATES POS (NEG); PHENCYCLIDINE NEG (NEG)
[2019-07-18 22:29] LABS: CLARITY,URINE HAZY; COLOR,URINE AMBER
[2019-07-18 22:30] LABS: BACTERIA,URINE FEW /HPF (0-FEW); BILIRUBIN,URINE NEG (NEG); GLUCOSE,URINE NEG (NEG); HYALINE CASTS, URINE OCC /HPF; NITRITE,URINE NEG (NEG); SQUAMOUS EPITHELIAL CELL,UR OCC /LPF; UROBILINOGEN,URINE 1 mg/dL (0.2 mg/dL)
[2019-07-18 22:32] LABS: AMPHETAMINE/METHAMPHETAMINE NEG (NEG)
[2019-07-18] MEDS ORDERED: MORPHINE SULFATE 4 MG/ML DISP.SYRIN. IV ONE (23:30)
[2019-07-18 23:57] VITALS: BP 123/72
[2019-07-19] MEDS ORDERED: HEPARIN PF 500 UNIT/5 ML DISP.SYRIN. IV ONE (00:15)
== END 2019-07-19 00:15 | disposition home or self-care (01) ==
LOC: ER 20:32
DX: R42 Dizziness and giddiness (principal); M54.5 Low back pain; M53.3 Sacrococcygeal disorders, not elsewhere classified; E78.00 Pure hypercholesterolemia, unspecified; I10 Essential (primary) hypertension; Z90.49 Acquired absence of other specified parts of digestive tract; Z98.890 Other specified postprocedural states; Z98.84 Bariatric surgery status; Z88.5 Allergy status to narcotic agent; Z91.040 Latex allergy status; W18.09XA Striking against other object with subsequent fall, initial encounter; Y93.89 Activity, other specified; Y92.89 Other specified places as the place of occurrence of the external cause; Y99.8 Other external cause status
CPT/HCPCS: 36415; 70450; 80053; 80307; 81001; 85025; 96361; 96374; 96375; 99285; J2270; J7030

== ENCOUNTER 2020-01-07 20:19 | Inpatient (IN) | payer OTHER ==
[~2020-01-07] VITALS: Ht 175.3 cm; Wt 80.4 kg
[~2020-01-07 20:19] MED LIST changes: -CLON0.5T11 PO; +CLON0.5T4 PO; -LAMO100T PO; +LAMO100T8 PO; +TRAZ-125 PO; -TRAZ-86 PO
[2020-01-07] MEDS ORDERED: IV NORMAL SALINE 1,000ML 1,000 ML IV ONE (21:00)
[2020-01-07 21:33] LABS: BASO # 0.1 x10^3/uL (0.0-0.2); BASO % 1 % (0-3); EOS % 1 % (0-3); HEMOGLOBIN 12.8 g/dL (12.0-15.5); LYMPH # 2.1 x10^3/uL (1.0-4.8); LYMPH % 35 % (24-48); MEAN CORPUSCULAR HEMOGLOBIN 28 pg (25-35); MEAN CORPUSCULAR HGB CONC 32 g/dL (31-37); MEAN CORPUSCULAR VOLUME 87 fL (79-100); MONO # 0.4 x10^3/uL (0.0-1.1); MONO % 7 % (0-9); NEUT # 3.4 x10^3uL (1.8-7.7); NEUT % 57 % (31-73); PLATELET COUNT 202 x10^3/uL (140-400); RED BLOOD COUNT 4.61 x10^6/uL (3.50-5.40); RED CELL DISTRIBUTION WIDTH 13.9 % (11.5-14.5)
[2020-01-07] MEDS ORDERED: ONDANSETRON PF 4 MG/2 ML VIAL. ONE (21:37)
[2020-01-07 21:42] LABS: CALCIUM 9.1 mg/dL (8.5-10.1); CREATININE 1.6 mg/dL (0.6-1.0); POTASSIUM 3.5 mmol/L (3.5-5.1)
[2020-01-07 21:48] LABS: ALBUMIN 3.9 g/dL (3.4-5.0); ALBUMIN/GLOBULIN RATIO 1.2 (1.0-1.7); MAGNESIUM 1.8 mg/dL (1.8-2.4); TOTAL BILIRUBIN 0.6 mg/dL (0.2-1.0); TOTAL PROTEIN 7.1 g/dL (6.4-8.2)
[2020-01-07] MEDS ORDERED: ONDANSETRON PF 4 MG/2 ML VIAL. IVP ONE (22:00)
[2020-01-07 22:05] LABS: BILIRUBIN,URINE NEG (NEG); CLARITY,URINE CLEAR; COLOR,URINE YELLOW; GLUCOSE,URINE NEG (NEG); NITRITE,URINE NEG (NEG); UROBILINOGEN,URINE 0.2 mg/dL (0.2 mg/dL)
[2020-01-07 22:06] LABS: BACTERIA,URINE MOD /HPF (0-FEW); SQUAMOUS EPITHELIAL CELL,UR FEW /LPF
[2020-01-07] MEDS ORDERED: traZODone 50 MG TABLET. PO ONE (22:30)
[2020-01-07] MEDS ORDERED: NITROGLYCERIN SUBLINGUAL 0.4 MG BOTTLE OF 25. SL PRN (22:30)
[2020-01-07] MEDS ORDERED: ASPIRIN 81 MG TAB.CHEW PO ONE (22:30)
--- NOTE | 2020-01-07 22:56 | EKG ---
[address] [address] Test Date: 2020-01-07 Test Time: 21:27:21 Pat Name: BEN BILLINGS Department: Room: Gender: F Cargo Mate: ANAY: 1965 Requested By: SANDRA CHURCH Order Number: [id number] Reading MD: Measurements Intervals Harper Rate: 83 P: 56 OR: 182 QRS: -13 QRSD: 86 T: 11 QT: 378 QTc: 445 Interpretive Statements SINUS RHYTHM LEFTWARD AXIS R-S TRANSITION ZONE IN V LEADS DISPLACED TO THE LEFT QRS(T) CONTOUR ABNORMALITY CONSIDER ANTEROLATERAL MYOCARDIAL DAMAGE POSSIBLY ABNORMAL ECG RI6.01 No previous ECG available for comparison
[2020-01-07] MEDS ORDERED: ZIPRASIDONE 80 MG CAPSULE. PO ONE (23:00)
[2020-01-07] MEDS ORDERED: ZOLPIDEM 5 MG TABLET. PO ONE (23:00)
--- NOTE | 2020-01-07 23:05 | RAD ---
AP chest. HISTORY: Dizziness, weakness AP view was taken of the chest. There is a Port-A-Cath on the right in good position. Heart is normal in size. There is no pleural effusion. There are no confluent infiltrates. There is linear scarring at the left lung base. IMPRESSION: 1. No acute infiltrates. Electronically signed by: Esteban Garcia MD (01/07/2020 11:02 PM) [id number]
--- NOTE | 2020-01-07 23:26 | PHYS DOC ---
Past History Past Medical History: Anxiety, Bipolar, Depression, High Cholesterol, Hypertension, Hypothyroid, Other Additional Past Medical Histor: goiters Past Surgical History: Cholecystectomy, , Gastric Bypass, Hysterectomy Additional Past Surgical Histo: foot surg; partial thyroidectomy Smoking: Non-smoker Alcohol Use: None Drug Use: None Adult General Chief Complaint Chief Complaint: WEAKNESS/GENERALIZED HPI HPI Patient is a [54-year-old female presenting with generalized weakness. She says she is felt this way several times in the past she is come to this emergency room and she has had IV fluids and actually felt a lot better and went home. This time around she said she just woke up this morning she just was feeling tired all over just fatigue. Initially when I first evaluated her she said she denied any headache denied any chest pain just felt maybe a little dizzy at times just was feeling kind of overwhelmingly weak. Patient has multiple medical problems including bipolar hyperlipidemia high cholesterol on multiple medications including multiple sedating medications no blood thinners Review of Systems Review of Systems Constitutional: Denies fever or chills [] Eyes: Denies change in visual acuity, redness, or eye pain [] HENT: Denies nasal congestion or sore throat [] All other systems were reviewed and found to be within normal limits, except as documented in this note. Current Medications Current Medications Current Medications Medications (Trade) Dose Ordered Sig/Kristy Start Time Stop Time Status Last Admin Dose Admin Aspirin (Children'S Aspirin) 324 mg 1X ONCE 01/07/20 22:30 01/07/20 22:31 DC 01/07/20 22:30 324 MG Nitroglycerin (Nitrostat) 0.4 mg PRN Q5MIN PRN 01/07/20 22:30 01/08/20 22:29 Ondansetron HCl (Zofran) 4 mg STK-MED ONCE 01/07/20 21:37 01/07/20 21:38 DC Sodium Chloride 1,000 ml @ 75 mls/hr [id number] 01/07/20 22:20 01/08/20 22:19 Trazodone HCl (Desyrel) 100 mg 1X ONCE 01/07/20 22:30 01/07/20 22:31 DC Allergies Allergies Allergies Coded Allergies Type Severity Reaction Last Updated Verified codeine Allergy Intermediate rash 05/11/14 No latex Allergy Intermediate rash 05/11/14 No Physical Exam Physical Exam Constitutional: Well developed, well nourished, no acute distress, non-toxic appearance. [] HENT: Normocephalic, atraumatic, bilateral external ears normal, oropharynx moist, no oral exudates, nose normal. [] Eyes: PERRLA, EOMI, conjunctiva normal, no discharge. [] Neck: Normal range of motion, no tenderness, supple, no stridor. [] Cardiovascular:Heart rate regular rhythm, no murmur [] Lungs & Thorax: Bilateral breath sounds clear to auscultation [] Abdomen: Bowel sounds normal, soft, no tenderness, no masses, no pulsatile masses. [] Skin: Warm, dry, no erythema, no rash. [] Back: No tenderness, no CVA tenderness. [] Extremities: No tenderness, no cyanosis, no clubbing, ROM intact, no edema. [] Neurologic: Alert and oriented X 3, normal motor function, normal sensory function, no focal deficits noted. [] Psychologic: BLUNTED AFFECT, DEPRESSED MOOD Current Patient Data Vital Signs Vital Signs Date Time Temp Pulse Resp B/P (MAP) Pulse Ox O2 Delivery O2 Flow Rate FiO2 01/07/20 22:35 94 20 103/68 (80) 97 Room Air 01/07/20 22:00 98.1 Lab Results Laboratory Tests Test 01/07/20 21:18 White Blood Count 6.0 x10^3/uL (4.0-11.0) Red Blood Count 4.61 x10^6/uL (3.50-5.40) Hemoglobin 12.8 g/dL (12.0-15.5) Hematocrit 40.0 % (36.0-47.0) Mean Corpuscular Volume 87 fL (79-100) Mean Corpuscular Hemoglobin 28 pg (25-35) Mean Corpuscular Hemoglobin Concent 32 g/dL (31-37) Red Cell Distribution Width 13.9 % (11.5-14.5) Platelet Count 202 x10^3/uL (140-400) Neutrophils (%) (Auto) 57 % (31-73) Lymphocytes (%) (Auto) 35 % (24-48) Monocytes (%) (Auto) 7 % (0-9) Eosinophils (%) (Auto) 1 % (0-3) Basophils (%) (Auto) 1 % (0-3) Neutrophils # (Auto) 3.4 x10^3uL (1.8-7.7) Lymphocytes # (Auto) 2.1 x10^3/uL (1.0-4.8) Monocytes # (Auto) 0.4 x10^3/uL (0.0-1.1) Eosinophils # (Auto) 0.0 x10^3/uL (0.0-0.7) Basophils # (Auto) 0.1 x10^3/uL (0.0-0.2) Urine Collection Type Unknown Urine Color Yellow Urine Clarity Clear Urine pH 5.5 Urine Specific [place] <=1.005 Urine Protein Neg (NEG-TRACE) Urine Glucose (UA) Neg mg/dL (NEG) Urine Ketones (Stick) 15 mg/dL (NEG) Urine Blood Trace (NEG) Urine Nitrite Neg (NEG) Urine Bilirubin Neg (NEG) Urine Urobilinogen Dipstick 0.2 mg/dL (0.2 mg/dL) Urine Leukocyte Esterase Neg (NEG) Urine RBC 1-2 /HPF (0-2) Urine WBC 1-4 /HPF (0-4) Urine Squamous Epithelial Cells Few /LPF Urine Bacteria Mod /HPF (0-FEW) Urine Mucus Slight /LPF Sodium Level 137 mmol/L (136-145) Potassium Level 3.5 mmol/L (3.5-5.1) Chloride Level 99 mmol/L (98-107) Carbon Dioxide Level 28 mmol/L (21-32) Anion Gap 10 (6-14) Blood Urea Nitrogen 15 mg/dL (7-20) Creatinine 1.6 mg/dL (0.6-1.0) H Estimated GFR (Cockcroft-Gault) 41.0 BUN/Creatinine Ratio 9 (6-20) Glucose Level 73 mg/dL (70-99) Calcium Level 9.1 mg/dL (8.5-10.1) Magnesium Level 1.8 mg/dL (1.8-2.4) Total Bilirubin 0.6 mg/dL (0.2-1.0) Aspartate Amino Transferase (AST) 12 U/L (15-37) L Alanine Aminotransferase (ALT) 19 U/L (14-59) Alkaline Phosphatase 90 U/L (46-116) Creatine Kinase 60 U/L (26-192) Troponin I Quantitative 0.052 ng/mL (0-0.055) Total Protein 7.1 g/dL (6.4-8.2) Albumin 3.9 g/dL (3.4-5.0) Albumin/Globulin Ratio 1.2 (1.0-1.7) EKG EKG [] EKG shows a normal sinus rhythm rate of 83 no STEMI there are inverted T waves in lead III that looks similar to July 30, 2018 Radiology/Procedures Radiology/Procedures [] Impressions: AP view was taken of the chest. There is a Port-A-Cath on the right in good position. Heart is normal in size. There is no pleural effusion. There are no confluent infiltrates. There is linear scarring at the left lung base. IMPRESSION: 1. No acute infiltrates. Electronically signed by: Esteban Garcia MD (01/07/2020 11:02 PM) [id number] DICTATED AND SIGNED BY: ESTEBAN GARCIA MD DATE: 01/07/202301 CC: SANDEE BUTLER MD; SANDRA CHURCH MD; WM LOPEZ MD ~ Course & Med Decision Making Course & Med Decision Making Pertinent Labs and Imaging studies reviewed. (See chart for details) [] 54-year-old female with history of chronic kidney disease stage II bipolar disease hyperlipidemia hypertension etc. who is presenting with generalized fatigue since this morning. Initially did not complain any chest pain I proceeded with a generalized emergency room work-up patient was neurologically intact denied a headache. Noted the borderline troponin it still within the normal range 0.052 and she has been having symptoms all day nevertheless given that on reevaluation when I asked her again she actually said she has been having intermittent "twinges" of pain on the left side of her chest that come and go throughout the day do not appear to be clearly exertional she had 1 or 2 episodes in the emergency room. Not pressure nonradiating and again only lasting seconds at a time at the most but given this and the borderline troponin I think she warrants admission for overnight observation serial troponins will give a dose of aspirin. ADMIT to amelia service. also bump in creatinine. gave iv fluids. Dragon Disclaimer Dragon Disclaimer This electronic medical record was generated, in whole or in part, using a voice recognition dictation system. Departure Departure: Impression: Primary Impression: Weakness Additional Impression: Chest discomfort Disposition: 09 ADMITTED INPATIENT Admitting Physician: Wm Lopez Condition: STABLE Referrals: SANDEE BUTLER MD (PCP) Problem Qualifiers SANDRA CHURCH MD Jan 07, 2020 23:26
[2020-01-07 23:45] VITALS: BP 105/73
[2020-01-08] MEDS ORDERED: TRAZ-120 PO (00:08)
[2020-01-08] MEDS ORDERED: PROM12.58 PO (00:09)
[2020-01-08] MEDS: IV NORMAL SALINE 1,000ML 1,000 ML IV SCH ×2 (00:21→12:05)
[2020-01-08] MEDS: PROMETHAZINE 25 MG TABLET. PO PRN ×3 (00:22→18:06)
[2020-01-08 05:17] VITALS: BP 101/69
[2020-01-08 11:01] VITALS: BP 96/67
[2020-01-08] MEDS ORDERED: ZOLPIDEM TARTRATE 12.5 MG PO PRN (11:45)
[2020-01-08] MEDS: LOSARTAN 50 MG TABLET. PO SCH (12:00)
[2020-01-08] MEDS ORDERED: ZOLPIDEM 5 MG TABLET. PO PRN (12:00)
[2020-01-08] MEDS: hydroCHLOROthiazide 12.5 MG CAPSULE PO SCH (12:00)
[2020-01-08] MEDS: LEVOTHYROXINE 100 MCG TABLET PO SCH (12:05)
[2020-01-08] MEDS: lamoTRIgine 100 MG TABLET. PO SCH (12:05)
[2020-01-08] MEDS: buPROPion XL 300 MG TAB.ER.24H. PO SCH (12:05)
[2020-01-08 15:18] VITALS: BP 109/76
--- NOTE | 2020-01-08 19:39 | HP ---
ADMIT DATE: 01/07/2020 HISTORY OF PRESENT ILLNESS: The patient is a 54-year-old -Omani female patient who came to the Emergency Room complaining of generalized weakness. She apparently said that she just woke up in the morning of admission feeling tired all over, just fatigued. She stated also that she was complaining of chest pain and shortness of breath. She felt a little bit dizzy at times, just was feeling kind of overwhelmingly weak. The patient was evaluated in the Emergency Room and her chemistry showed that she has slightly impaired kidney function. Her first set of cardiac enzyme was slightly elevated at 0.052. Her lipase was normal and her chest x-ray was unremarkable. Her EKG showed that she was in sinus rhythm at a heart rate of 83 beats per minute, no ST segment elevation, and therefore she was admitted to do 2 more sets of cardiac enzymes, check her fasting lipid profile and consult the Cardiology team as she has multiple risk factors for premature coronary artery disease. PAST MEDICAL HISTORY: Significant for hypertension, hypothyroidism, osteoarthritis, bipolar disorder what seems some form of partial seizure. PAST SURGICAL HISTORY: Significant for thyroidectomy for malignant thyroid tumor, , arthroscopic left knee surgery 8 years ago for a meniscal tear, cholecystectomy, esophagogastroduodenoscopy and colonoscopy. ALLERGIES: She is allergic to LATEX and CODEINE. FAMILY HISTORY: She has 2 sisters, the younger one of them has hypertension and diabetes, the other one is known to have hypertension. Her mother is still alive at the age of 69 and is known to have osteoarthritis, hypothyroidism, seizure disorder and senile macular degeneration. Her father at age of 65 and was known to have heart disease, diabetes and schizophrenia. SOCIAL HISTORY: She is , has 1 son and 4 daughters. She never smoked, does not drink alcohol. 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 MEDICATIONS: She is currently on following medications: She is on promethazine 12.5 mg every 6 hours, losartan/hydrochlorothiazide 50/12.5 mg once a day, clonazepam 1 mg at bedtime, lamotrigine 350 mg daily, Wellbutrin XL 300 mg once a day, trazodone 350 mg at bedtime, ziprasidone for Geodon 80 mg at bedtime, Ambien 12.5 mg at bedtime, levothyroxine sodium 200 mcg once a day. REVIEW OF SYSTEMS: The patient denied any blurring of vision, cataract, glaucoma or macular degeneration. Denied any earache, tinnitus or sensorineural deafness. Denied any nosebleed, stuffy nose or postnasal drip. Denied any sore throat, sore tongue, toothache, hoarseness of voice or difficulty swallowing. Denied any nausea, vomiting, diarrhea or constipation. Denied any hematemesis, melena or hematochezia. Denied any dysuria, frequency or hematuria. Did complain of chest pain, shortness of breath, generalized weakness and feeling dizzy. PHYSICAL EXAMINATION: GENERAL: On arrival to the Emergency Room, the patient looked well and was clearly in no apparent respiratory distress. No pallor, jaundice, cyanosis or thyromegaly. No jugular venous distention. No lower limb edema. VITAL SIGNS: Her heart rate was 90, blood pressure was 133/69, temperature was 98.1, respiratory rate was 16 and oxygen saturation was 98%. HEAD, EYES, EARS, NOSE AND THROAT: Showed normocephalic, atraumatic. NECK: Supple. HEART: Showed normal first and second heart sounds. No gallop or murmur. CHEST: Clear to auscultation. No crepitation or rhonchi. ABDOMEN: Slightly distended, soft, nontender. NEUROLOGIC: She was awake, alert, responding appropriately. All cranial nerves intact. EXTREMITIES: She moves extremities without difficulty. She ambulates without assistance or assistive devices. LABORATORY DATA: Her CBC showed a white cell count of 6000, hemoglobin 13, hematocrit 40, MCV 87 and platelet count 202,000. Her chemistry showed a serum sodium 137, potassium 3.5, chloride 99, bicarbonate 28, anion gap of 10, BUN 15, creatinine 1.6, estimated GFR was 41 mL per minute. Her glucose was 73, calcium was 9.1, magnesium was 1.8. Total bilirubin, AST, ALT, alkaline phosphatase were normal. Her CK is normal. Her first troponin was 0.052. Total protein was 7.1, albumin was 3.9. Her serum lipase was 17. Her urinalysis was essentially unremarkable. RADIOGRAPHIC DATA: Her chest x-ray showed that there is a Port-A-Cath on the right in good position. Heart is normal in size. There is no pleural effusion. There are no confluent infiltrate. There is linear scarring at the left lung base. PLAN: The patient was admitted to do 2 more sets of cardiac enzyme, check her fasting lipid profile and also consult the Cardiology team. We did reconcile all her medications. EDWIN CALLES MD DR: AKHIL/cherrie JOB#: [id number] / [id number]
[2020-01-08 19:45] VITALS: BP 111/69
[2020-01-08] MEDS ORDERED: clonazePAM 1 MG TABLET PO SCH (21:00)
[2020-01-08] MEDS ORDERED: traZODone 100 MG TABLET. PO SCH (21:00)
[2020-01-08] MEDS ORDERED: ZIPRASIDONE 80 MG CAPSULE. PO SCH (21:00)
[2020-01-08 22:29] VITALS: BP 125/90
--- NOTE | 2020-01-08 23:03 | PN ---
DATE: 01/08/2020 SUBJECTIVE: The patient is a 54-year-old female patient who was admitted with somewhat atypical chest pain and shortness of breath. She had had 3 sets of cardiac enzymes that showed a troponin was 0.052, the second one 0.076, the third one was 0.054. She was seen in consultation by the stucco worker, who recommended doing an echocardiogram and nuclear stress test tomorrow. When I saw her this afternoon, she looked well and was clearly in no apparent respiratory distress. She denied any more chest pain or shortness of breath. OBJECTIVE: GENERAL: When I examined her, she looked well and was clearly in no apparent respiratory distress. No pallor, jaundice, cyanosis, or thyromegaly. No jugular venous distension. No lower limb edema. VITAL SIGNS: Her heart rate was 85, blood pressure was 109/76, temperature was 98.1, respiratory rate was 18 and oxygen saturation was 99%. HEAD, EYES, EARS, NOSE AND THROAT: Showed normocephalic, atraumatic. NECK: Supple. HEART: Showed normal first and second heart sounds. No gallop or murmur. CHEST: Clear to auscultation. No crepitation or rhonchi. ABDOMEN: Distended, soft, nontender. No guarding or rigidity. No organomegaly. All hernial orifices intact. Bowel sounds normal. NEUROLOGIC: She was awake, alert, responding appropriately. All cranial nerves intact. She moves extremities without difficulty. ASSESSMENT: In summary, this is a 54-year-old -Russian female patient who presented with somewhat atypical chest pain. So far, her cardiac enzymes have ruled out acute myocardial infarction. However, she has multiple risk factors for premature coronary artery disease that included hypertension, hypothyroidism. The patient was seen by the Cardiology team and the plan was for her to have an echocardiogram and a stress test tomorrow. EDWIN CALLES MD DR: AKHIL/cherrie JOB#: [id number] / [id number]
--- NOTE | 2020-01-08 23:25 | PDOC2 ---
CARDIAC CONSULT DATE OF CONSULT Date Of Consult DATE: 01/08/20 TIME: 23:17 REASON FOR CONSULT Reason for Consult Chest pain REFERRING PHYSICIAN Referring Physician John SOURCE Source: Patient HPI History of Present Illness Patient is a [id number] womanWho came in to beHospital in the setting ofFatigue and chest pain Her initial cardiac enzymes were elevated and therefore the cardiology team was consulted. She's had intermittent chest painAndStates that over the lastFew daysHer symptoms have worsened. She's not had any syncope, palpitations, orthopneaFor any PND. PAST MEDICAL HISTORY Cardiovascular: HTN PAST SURGICAL HISTORY Past Surgical History none FAMILY HISTORY Family History see h&P SOCIAL HISTORY Smoke: No ALCOHOL: none Drugs: None Lives: Alone Domestic Violence: Neg CURRENT MEDICATIONS Current Medications Current Medications Sodium Chloride 1,000 ml @ 1,000 mls/hr 1X ONCE IV Last administered on 01/07/20at 21:00; Start 01/07/20 at 21:00; Stop 01/07/20 at 21:59; Status DC Ondansetron HCl (Zofran) 4 mg 1X ONCE IVP Last administered on 01/07/20at 21:39; Start 01/07/20 at 22:00; Stop 01/07/20 at 22:01; Status DC Ondansetron HCl (Zofran) 4 mg STK-MED ONCE .ROUTE ; Start 01/07/20 at 21:37; Stop 01/07/20 at 21:38; Status DC Ziprasidone (Geodon) 80 mg 1X ONCE PO Last administered on 01/08/20at 00:20; Start 01/07/20 at 23:00; Stop 01/07/20 at 23:01; Status DC Trazodone HCl (Desyrel) 100 mg 1X ONCE PO Last administered on 01/08/20at 00:20; Start 01/07/20 at 22:30; Stop 01/07/20 at 22:31; Status DC Zolpidem Tartrate (Ambien) 10 mg 1X ONCE PO Last administered on 01/08/20at 00:20; Start 01/07/20 at 23:00; Stop 01/07/20 at 23:01; Status DC Aspirin (Children'S Aspirin) 324 mg 1X ONCE PO Last administered on 01/07/20at 22:30; Start 01/07/20 at 22:30; Stop 01/07/20 at 22:31; Status DC Sodium Chloride 1,000 ml @ 75 mls/hr [id number] IV Last administered on 01/08/20at 12:05; Start 01/07/20 at 22:20; Stop 01/08/20 at 22:19; Status DC Nitroglycerin (Nitrostat) 0.4 mg PRN Q5MIN PRN SL CHEST PAIN; Start 01/07/20 at 22:30; Stop 01/08/20 at 22:29; Status DC Promethazine HCl (Phenergan) 12.5 mg PRN Q6HRS PRN PO NAUSEA Last administered on 01/08/20at 18:06; Start 01/08/20 at 00:15 Bupropion HCl (Wellbutrin Xl) 300 mg DAILYWLUN PO Last administered on 01/08/20at 12:05; Start 01/08/20 at 12:00 Clonazepam (KlonoPIN) 1 mg QHS PO Last administered on 01/08/20at 22:11; Start 01/08/20 at 21:00 Lamotrigine (LaMICtal) 350 mg DAILY PO Last administered on 01/08/20at 12:05; Start 01/08/20 at 12:00 Levothyroxine Sodium (Synthroid) 200 mcg DAILY06 PO Last administered on 12/28 11/18at 12:05; Start 01/08/20 at 12:00 Trazodone HCl (Desyrel) 350 mg QHS PO Last administered on 01/08/20at 22:11; Start 01/08/20 at 21:00 Ziprasidone (Geodon) 80 mg HS PO Last administered on 01/08/20at 22:11; Start 01/08/20 at 21:00 Non-Formulary Medication (Losartan/ Hydrochlorothiazide (Losartan-Hctz 50-12.5 Mg Tab)) 1 each DAILY PO ; Start 01/09/20 at 09:00; Stop 01/08/20 at 11:49; Status DC Non-Formulary Medication (Zolpidem Tartrate (Ambien Cr)) 12.5 mg PRN QHS PRN PO INSOMNIA; Start 01/08/20 at 11:45; Stop 01/08/20 at 11:46; Status DC Zolpidem Tartrate (Ambien) 5 mg PRN QHS PRN PO INSOMNIA; Start 01/08/20 at 12:00 Losartan Potassium (Cozaar) 50 mg DAILY PO ; Start 01/08/20 at 12:00 Hydrochlorothiazide (Microzide) 12.5 mg DAILY PO ; Start 01/08/20 at 12:00 Active Scripts Active Reported Promethazine Hcl 12.5 Mg Tablet 12.5 Mg PO PRN Q6HRS PRN Trazodone Hcl 50 Mg Tablet 350 Mg PO HS Wellbutrin Xl (Bupropion Hcl) 300 Mg Tab.er.24h 300 Mg PO DAILYWLUN Do not take for 5 days, until levofloxacin is done. Losartan-Hctz 50-12.5 Mg Tab (Losartan/Hydrochlorothiazide) 1 Each Tablet 1 Each PO DAILY Take again tomorrow. Ambien Cr (Zolpidem Tartrate) 12.5 Mg Tab.mphase 12.5 Mg PO PRN QHS PRN as needed Geodon (Ziprasidone Hcl) 80 Mg Capsule 80 Mg PO HS Take today. Levothyroxine Sodium 100 Mcg Tablet 200 Mcg PO DAILY06 Take again tomorrow. Clonazepam 0.5 Mg Tablet 1 Mg PO HS May have second dose this afternoon. Lamictal (Lamotrigine) 100 Mg Tablet 350 Mg PO DAILY Take again tomorrow. ALLERGIES Allergies: Coded Allergies: codeine (Unverified Allergy, Intermediate, rash, 05/11/14) latex (Unverified Allergy, Intermediate, rash, 05/11/14) ROS Review of Systems Negative unless noted above. PHYSICAL EXAM General: Alert, Oriented X3 HEENT: Atraumatic Lungs: Clear to auscultation Heart: Regular rate, Normal S1, Normal S2 Abdomen: Normal bowel sounds Extremities: No clubbing Skin: No rashes Neuro: Normal gait, Normal speech, Strength at 5/5 X4 ext Psych/Mental Status: Mental status NL MUSCULOSKELETAL: No joint tenderness VITALS Vital Signs Vital Signs Date Time Temp Pulse Resp B/P (MAP) Pulse Ox O2 Delivery O2 Flow Rate FiO2 01/08/20 22:29 98.5 95 20 125/90 (102) 96 Room Air LABS LABS Laboratory Tests Test 01/07/20 21:18 01/08/20 00:32 01/08/20 04:45 White Blood Count 6.0 x10^3/uL (4.0-11.0) Red Blood Count 4.61 x10^6/uL (3.50-5.40) Hemoglobin 12.8 g/dL (12.0-15.5) Hematocrit 40.0 % (36.0-47.0) Mean Corpuscular Volume 87 fL (79-100) Mean Corpuscular Hemoglobin 28 pg (25-35) Mean Corpuscular Hemoglobin Concent 32 g/dL (31-37) Red Cell Distribution Width 13.9 % (11.5-14.5) Platelet Count 202 x10^3/uL (140-400) Neutrophils (%) (Auto) 57 % (31-73) Lymphocytes (%) (Auto) 35 % (24-48) Monocytes (%) (Auto) 7 % (0-9) Eosinophils (%) (Auto) 1 % (0-3) Basophils (%) (Auto) 1 % (0-3) Neutrophils # (Auto) 3.4 x10^3uL (1.8-7.7) Lymphocytes # (Auto) 2.1 x10^3/uL (1.0-4.8) Monocytes # (Auto) 0.4 x10^3/uL (0.0-1.1) Eosinophils # (Auto) 0.0 x10^3/uL (0.0-0.7) Basophils # (Auto) 0.1 x10^3/uL (0.0-0.2) Urine Collection Type Unknown Urine Color Yellow Urine Clarity Clear Urine pH 5.5 Urine Specific [place] <=1.005 Urine Protein Neg (NEG-TRACE) Urine Glucose (UA) Neg mg/dL (NEG) Urine Ketones (Stick) 15 mg/dL (NEG) Urine Blood Trace (NEG) Urine Nitrite Neg (NEG) Urine Bilirubin Neg (NEG) Urine Urobilinogen Dipstick 0.2 mg/dL (0.2 mg/dL) Urine Leukocyte Esterase Neg (NEG) Urine RBC 1-2 /HPF (0-2) Urine WBC 1-4 /HPF (0-4) Urine Squamous Epithelial Cells Few /LPF Urine Bacteria Mod /HPF (0-FEW) Urine Mucus Slight /LPF Sodium Level 137 mmol/L (136-145) Potassium Level 3.5 mmol/L (3.5-5.1) Chloride Level 99 mmol/L (98-107) Carbon Dioxide Level 28 mmol/L (21-32) Anion Gap 10 (6-14) Blood Urea Nitrogen 15 mg/dL (7-20) Creatinine 1.6 mg/dL (0.6-1.0) Estimated GFR (Cockcroft-Gault) 41.0 BUN/Creatinine Ratio 9 (6-20) Glucose Level 73 mg/dL (70-99) Calcium Level 9.1 mg/dL (8.5-10.1) Magnesium Level 1.8 mg/dL (1.8-2.4) Total Bilirubin 0.6 mg/dL (0.2-1.0) Aspartate Amino Transf (AST/SGOT) 12 U/L (15-37) Alanine Aminotransferase (ALT/SGPT) 19 U/L (14-59) Alkaline Phosphatase 90 U/L (46-116) Creatine Kinase 60 U/L (26-192) Troponin I Quantitative 0.052 ng/mL (0-0.055) 0.076 ng/mL (0-0.055) 0.054 ng/mL (0-0.055) Total Protein 7.1 g/dL (6.4-8.2) Albumin 3.9 g/dL (3.4-5.0) Albumin/Globulin Ratio 1.2 (1.0-1.7) Lipase 70 U/L (73-393) EKG EKG NSR ASSESSMENT/PLAN Assessment/Plan 54 y.o woman with severe fatigue and chest pain with positive troponin. She presents as an NSTEMI. Unclear if this is type 1 or 2. Will proceed with testing . Discussed r/b/a to nuclear stress testing, patient is amenable. thanks KASSANDRA MACEDO MD Jan 08, 2020 23:25
[2020-01-09 05:22] VITALS: BP 115/78
[2020-01-09] MEDS: LEVOTHYROXINE 100 MCG TABLET PO SCH (06:08)
[2020-01-09 06:55] LABS: ALBUMIN 2.9 g/dL (3.4-5.0); CALCIUM 8.2 mg/dL (8.5-10.1); CREATININE 1.3 mg/dL (0.6-1.0); POTASSIUM 3.7 mmol/L (3.5-5.1); TOTAL BILIRUBIN 0.5 mg/dL (0.2-1.0); TOTAL PROTEIN 5.9 g/dL (6.4-8.2)
[2020-01-09] MEDS ORDERED: REGADENOSON 0.4 MG/5 ML DISP.SYRIN. IV ONE (07:45)
[2020-01-09] MEDS: LOSARTAN 50 MG TABLET. PO SCH (09:00)
[2020-01-09] MEDS: hydroCHLOROthiazide 12.5 MG CAPSULE PO SCH (09:00)
[2020-01-09] MEDS ORDERED: NON FORMULARY ITEM (Losartan/Hydrochlorothiazide (Losartan-Hctz 50-12.5 Mg Tab) 1 EACH) PO SCH (09:00)
[2020-01-09] MEDS ORDERED: ACETAMINOPHEN 325 MG TABLET PO PRN (10:15)
--- NOTE | 2020-01-09 10:18 | PDOC ---
CARDIO Progress Notes Date & Time Date of Service DATE: 01/09/20 TIME: 10:11 Time of Evaluation 9:11 Subjective Notes occasional sharp pain in her left chest overnight. Lasted about 20 mins and resolved without intervention. [place] pressure in chest when laying on left side overnight. No dizziness, diaphoresis, palpitations, or nausea/vomiting. Vitals Vitals Vital Signs Date Time Temp Pulse Resp B/P (MAP) Pulse Ox O2 Delivery O2 Flow Rate FiO2 01/09/20 05:22 98.4 76 16 115/78 (90) 94 Room Air Weight Weight [ ] Input and Output I.O. Intake and Output 01/09/20 07:00 Intake Total 1280 ml Balance 1280 ml Intake Oral 1280 ml # Voids 2 Laboratory Labs Laboratory Tests Test 01/07/20 21:18 01/08/20 00:32 01/08/20 04:45 01/09/20 06:25 White Blood Count 6.0 x10^3/uL (4.0-11.0) Red Blood Count 4.61 x10^6/uL (3.50-5.40) Hemoglobin 12.8 g/dL (12.0-15.5) Hematocrit 40.0 % (36.0-47.0) Mean Corpuscular Volume 87 fL (79-100) Mean Corpuscular Hemoglobin 28 pg (25-35) Mean Corpuscular Hemoglobin Concent 32 g/dL (31-37) Red Cell Distribution Width 13.9 % (11.5-14.5) Platelet Count 202 x10^3/uL (140-400) Neutrophils (%) (Auto) 57 % (31-73) Lymphocytes (%) (Auto) 35 % (24-48) Monocytes (%) (Auto) 7 % (0-9) Eosinophils (%) (Auto) 1 % (0-3) Basophils (%) (Auto) 1 % (0-3) Neutrophils # (Auto) 3.4 x10^3uL (1.8-7.7) Lymphocytes # (Auto) 2.1 x10^3/uL (1.0-4.8) Monocytes # (Auto) 0.4 x10^3/uL (0.0-1.1) Eosinophils # (Auto) 0.0 x10^3/uL (0.0-0.7) Basophils # (Auto) 0.1 x10^3/uL (0.0-0.2) Urine Collection Type Unknown Urine Color Yellow Urine Clarity Clear Urine pH 5.5 Urine Specific [place] <=1.005 Urine Protein Neg (NEG-TRACE) Urine Glucose (UA) Neg mg/dL (NEG) Urine Ketones (Stick) 15 mg/dL (NEG) Urine Blood Trace (NEG) Urine Nitrite Neg (NEG) Urine Bilirubin Neg (NEG) Urine Urobilinogen Dipstick 0.2 mg/dL (0.2 mg/dL) Urine Leukocyte Esterase Neg (NEG) Urine RBC 1-2 /HPF (0-2) Urine WBC 1-4 /HPF (0-4) Urine Squamous Epithelial Cells Few /LPF Urine Bacteria Mod /HPF (0-FEW) Urine Mucus Slight /LPF Sodium Level 137 mmol/L (136-145) 143 mmol/L (136-145) Potassium Level 3.5 mmol/L (3.5-5.1) 3.7 mmol/L (3.5-5.1) Chloride Level 99 mmol/L (98-107) 110 mmol/L (98-107) Carbon Dioxide Level 28 mmol/L (21-32) 27 mmol/L (21-32) Anion Gap 10 (6-14) 6 (6-14) Blood Urea Nitrogen 15 mg/dL (7-20) 13 mg/dL (7-20) Creatinine 1.6 mg/dL (0.6-1.0) 1.3 mg/dL (0.6-1.0) Estimated GFR (Cockcroft-Gault) 41.0 52.0 BUN/Creatinine Ratio 9 (6-20) 10 (6-20) Glucose Level 73 mg/dL (70-99) 68 mg/dL (70-99) Calcium Level 9.1 mg/dL (8.5-10.1) 8.2 mg/dL (8.5-10.1) Magnesium Level 1.8 mg/dL (1.8-2.4) Total Bilirubin 0.6 mg/dL (0.2-1.0) 0.5 mg/dL (0.2-1.0) Aspartate Amino Transf (AST/SGOT) 12 U/L (15-37) 9 U/L (15-37) Alanine Aminotransferase (ALT/SGPT) 19 U/L (14-59) 13 U/L (14-59) Alkaline Phosphatase 90 U/L (46-116) 68 U/L (46-116) Creatine Kinase 60 U/L (26-192) Troponin I Quantitative 0.052 ng/mL (0-0.055) 0.076 ng/mL (0-0.055) 0.054 ng/mL (0-0.055) Total Protein 7.1 g/dL (6.4-8.2) 5.9 g/dL (6.4-8.2) Albumin 3.9 g/dL (3.4-5.0) 2.9 g/dL (3.4-5.0) Albumin/Globulin Ratio 1.2 (1.0-1.7) 1.0 (1.0-1.7) Lipase 70 U/L (73-393) Physical Exams HEENT: Neck Supple W Full Motion Chest: Symmetric Lungs: Clear to Auscultation Heart: S1S2, RRR Abdomen: Soft N/T Extremities: No Edema Neurology: alert, oriented, follow commands Assessment Assessment Chest pain, atypical Mild troponin elevation; peak 0.076. JAVIER; improved Hypertension; controlled GERD S/p gastric bypass Fatigue, multifactorial Recommendations Add ASA Lipids, TSH Echo to assess LV systolic function MPI today to r/o underlying ischemia. Further pending above. SUMMER DE LUNA APRN Jan 09, 2020 10:18
[2020-01-09] MEDS: lamoTRIgine 100 MG TABLET. PO SCH (10:24)
[2020-01-09] MEDS ORDERED: VENL75CA6 PO (10:27)
[2020-01-09] MEDS ORDERED: ASPIRIN ENTERIC COATED 81 MG TABLET.DR. PO SCH (10:30)
[2020-01-09 10:32] VITALS: BP 108/75
[2020-01-09] MEDS: buPROPion XL 300 MG TAB.ER.24H. PO SCH (11:55)
[2020-01-09] MEDS: PROMETHAZINE 25 MG TABLET. PO PRN (12:50)
[2020-01-09 12:53] LABS: THYROID STIM HORMONE (TSH) 0.12 uIU/mL (0.358-3.740)
--- NOTE | 2020-01-09 12:59 | RAD ---
MR#: [id number] Date of Study: 01/09/2020 Ordering Physician: EDWIN CALLES, Referring Physician: ZAIDA KAUFMAN Tech: RT Shawn (R) (N) APPROVED REPORT Test Type: Pharmacological Stress Nurse/Tech: Krishna Joshua Test Indications: Dyspnea Cardiac History: No known cardiac Resting Heart Rate: 85 bpm Resting Blood Pressure: 107/67mmHg Pharm. Details Pharmacologic stress testing was performed using 0.4mg per 5ml of regadenoson given intravenously ove r 7-10 seconds. Stress Symptoms Dyspnea POST EXERCISE Reason for Termination: Reached target heart rate Max HR: 122 bpm Max Blood Pressure: 135/75mmHg Chest Pain: Yes. Arrhythmia: No. ST Change: No. INTERPRETATION Stress EKG Conclusion: The resting EKG showed a sinus rhythm with nonspecific ST T wave changes. Stress EKG showed no significant changes from baseline. No EKG evidence of stressed induced ischemia. Imaging Protocol IMAGE PROTOCOL: Rest Tc-99m/stress Tc-99m 1 day Rest: Stress: Viability: Radiopharm.Tc99m MbeomgzaeRf58y Sestamibi Hksm69rNa 32mCi Duration 15min. 15min. Img Date 01/09/2020 01/09/2020 Inj-Img Xdbj66ffc. 60min. Rest Admin Site:portAdministrator: RT Shawn (R)(N) Stress Admin Site: portAdministrator: RT Shawn (R)(N) STRESS DATA End Diast. Vol.82.0mlAv. Heart Rate94.0bpm End Syst. Vol.27.0mlCO Index BSA0.0L/min Myocardial Mafi579.0gEject. Fqlcvkgu05.0% Stress Rates Pk. Fill Rate3.13EDV/secLVtime Pk. Fill 161.94msec Pk. Empty Rate3.22ESV/secLVtime Pk. Sqcqw355.61msec 1/3 Pk. Fill1.67EDV/sec Stress Scores Regional WT0.00Summed WT1.00 Regional WM0.00Summed WM2.00 LV Perfusion The stress scans showed no significant defects. The rest scans showed no significant defects. Nuclear imaging shows no reversible ischemia or infarct. Wall Motion Left ventricular systolic function appears normal with an ejection fraction of 60%. LV Perf. Quant 17 Seg. SSS4.00 17 Seg. SRS0.00 17 Seg. SDS4.00 Stress Defect Extent (% LAD)5.00Rest Defect Extent (% LAD)0.00Rev. Defect Extent (% LAD)5.00 Stress Defect Extent (% LCX) 0.00Rest Defect Extent (% LCX)0.00Rev. Defect Extent (% LCX)0.00 Stress Defect Extent (% RCA)0.00Rest Defect Extent (% RCA)0.00Rev. Defect Extent (% RCA)0.00 Stress Defect Extent (% ZULMA)6.10Rest Defect Extent (% ZULMA)0.00Rev. Defect Extent (% ZULMA)6.10 Conclusion 1. No EKG evidence of stress-induced ischemia. 2. Nuclear imaging shows no reversible ischemia or infarct. 3. Left ventricular systolic function is normal with an ejection fraction of 60%. 4. Low to moderately low risk Lexiscan nuclear stress test. Signed by : Vladislav Moss MD Electronically Approved : 01/09/2020 12:59:29
[2020-01-09 15:12] VITALS: BP 117/76
--- NOTE | 2020-01-10 08:15 | CARD ---
MR#: [id number] Date of Study: 01/09/2020 Ordering Physician: EDWIN CALLES, Referring Physician: EDWIN CALLES, Tech: Luciana Escobedo APPROVED REPORT EXAM: Two-dimensional and M-mode echocardiogram with Doppler and color Doppler. Other Information Quality : AverageHR: 92bpm INDICATION LV Function:SystolicDiastolic 2D DIMENSIONS RVDd2.3 (2.9-3.5cm)Left Atrium(2D)3.2 (1.6-4.0cm) IVSd1.1 (0.7-1.1cm)Aortic Root(2D)2.8 (2.0-3.7cm) LVDd4.9 (3.9-5.9cm)LVOT Diameter2.0 (1.8-2.4cm) PWd1.2 (0.7-1.1cm)LVDs3.1 (2.5-4.0cm) FS (%) 38.1 %SV78.6 ml LVEF(%)68.1 (>50%) Aortic Valve AoV Peak Joe.132.0cm/sAoV VTI25.4cm AO Peak GR.7.0mmHgLVOT Peak Joe.82.4cm/s LVOT VTI 16.71cmAO Mean GR.4mmHg BEN (VMAX)1.28me8NZJ (VTI)2.00cm2 AI P 1/2 Xfsd870tc Mitral Valve MV E Qpeihunf03.0cm/sMV DECEL XQHD213nq MV A Fttyltli10.9cm/sE/A Ratio0.8 Pulmonary Valve PV Peak Khdmvvpd91.9cm/sPV Peak Grad.2mmHg Tricuspid Valve TR P. Lfixowio341wh/sRAP GUALHQVZ4cmIz TR Peak Gr.95nlRdGURY48edAz Pulmonary Vein S1 Guotvayy54.1cm/sD2 Bvreatiy72.5cm/s LEFT VENTRICLE The left ventricle is normal size. There is mild concentric left ventricular hypertrophy. The left ve ntricular systolic function is normal. The Ejection Fraction is 55-60%. There is normal LV segmental wall motion. Transmitral Doppler flow pattern is Grade I-abnormal relaxation pattern. RIGHT VENTRICLE The right ventricle is normal size. There is normal right ventricular wall thickness. The right ventr icular systolic function is normal. ATRIA The left atrium size is normal. The right atrium size is normal. The interatrial septum is intact wit h no evidence for an atrial septal defect or patent foramen ovale as noted on 2-D or Doppler imaging. AORTIC VALVE The aortic valve is normal in structure and function. Doppler and Color Flow revealed trace to mild a ortic regurgitation. There is no significant aortic valvular stenosis. MITRAL VALVE The mitral valve is normal in structure and function. There is no evidence of mitral valve prolapse. There is no mitral valve stenosis. Doppler and Color-flow revealed trace mitral regurgitation. TRICUSPID VALVE The tricuspid valve is normal in structure and function. Doppler and Color Flow revealed trace tricus pid regurgitation with an estimated PAP of 29 mmHg. There is no tricuspid valve stenosis. PULMONIC VALVE The pulmonary valve is normal in structure and function. Doppler and Color Flow revealed trace pulmon ic valvular regurgitation. GREAT VESSELS The aortic root is normal in size. The ascending aorta is normal in size. The IVC is normal in size a nd collapses >50% with inspiration. PERICARDIAL EFFUSION There is no evidence of significant pericardial effusion. Critical Notification Critical Value: No <Conclusion> The left ventricular systolic function is normal. The Ejection Fraction is 55-60%. There is normal LV segmental wall motion. Transmitral Doppler flow pattern is Grade I-abnormal relaxation pattern. Trace to mild aortic regurgitation. Trace mitral regurgitation. Trace tricuspid regurgitation with an estimated PAP of 29 mmHg. There is no evidence of significant pericardial effusion. Signed by : Kieran Dutton, Electronically Approved : 01/10/2020 08:14:24
== END 2020-01-09 19:24 | disposition home or self-care (01) | DRG 391 ==
LOC: ER 20:19 → 1 SOUTH 22:49 → OBSVTOIN 01-08 21:49
PROVIDERS: ADMIT Internal Medicine; ATTEND Internal Medicine
DX: K21.9 Gastro-esophageal reflux disease without esophagitis (principal); N17.0 Acute kidney failure with tubular necrosis; F31.9 Bipolar disorder, unspecified; F41.9 Anxiety disorder, unspecified; E89.0 Postprocedural hypothyroidism; E78.00 Pure hypercholesterolemia, unspecified; E78.5 Hyperlipidemia, unspecified; I10 Essential (primary) hypertension; M19.90 Unspecified osteoarthritis, unspecified site; Z90.710 Acquired absence of both cervix and uterus; Z98.84 Bariatric surgery status; Z83.3 Family history of diabetes mellitus; Z82.49 Family history of ischemic heart disease and other diseases of the circulatory system; Z82.0 Family history of epilepsy and other diseases of the nervous system; Z81.8 Family history of other mental and behavioral disorders; Z88.5 Allergy status to narcotic agent; Z91.040 Latex allergy status; Z90.49 Acquired absence of other specified parts of digestive tract; Z85.850 Personal history of malignant neoplasm of thyroid
CPT/HCPCS: 36415; 71045; 78452; 80053; 80061; 81001; 82550; 83690; 83735; 84443; 84484; 85025; 87086; 87186; 93005; 93017; 93306; 96361; 96374; A9500; G0378; G0379; J2405; J2785; Q0169; 99285-25; J7030

== ENCOUNTER 2020-03-10 16:07 | Emergency (ER) | payer OTHER ==
[~2020-03-10] VITALS: Ht 175.3 cm; Wt 80.4 kg
[~2020-03-10 16:07] MED LIST changes: +PROM12.58 PO; +TRAZ-120 PO; +VENL75CA6 PO
--- NOTE | 2020-03-10 16:39 | PHYS DOC ---
Past History Past Medical History: Anemia, Anxiety, Bipolar, Depression, Hypertension, Hypothyroid, Other Additional Past Medical Histor: goiters; has been requiring iron infusions for her anemia Past Surgical History: Cholecystectomy, , Gastric Bypass, Hysterectomy, Knee Replacement Additional Past Surgical Histo: foot surg; partial thyroidectomy Smoking: Non-smoker Alcohol Use: None Drug Use: None General Adult EDM: Chief Complaint: FLU SYMPTOM HPI: HPI: Patient is a 54-year-old female who presents to the emergency department for evaluation. She states that for the past 3 days, she has had myalgias, decreased taste and smell sensation, some nasal congestion and a nonproductive cough. She reports a mild shortness of breath at rest but does not have any increasing shortness of breath with exertion. She denies any chest pain, exertional, pleuritic, or otherwise. She has not had any nausea, vomiting, or diarrhea. She has no known COVID exposures and has not had any recent travel. She denies any sore throat or otalgia, and has not had any fevers. There are no alleviating or exacerbating factors to her symptoms. Review of Systems: Review of Systems: Constitutional: Denies fever or chills. Does report myalgias. Eyes: Denies change in visual acuity HENT: Denies otalgia or sore throat. She has had some nasal congestion. Respiratory: As per HPI Cardiovascular: Denies chest pain or edema GI: Denies abdominal pain, vomiting, bloody stools or diarrhea . Reports nausea : Denies dysuria Musculoskeletal: Denies back pain or joint pain. Does report myalgias. Integument: Denies rash Neurologic: Denies significant headache, focal weakness or sensory changes Endocrine: Denies polyuria or polydipsia Lymphatic: Denies swollen glands Psychiatric: Denies depression or anxiety Heart Score: Risk Factors: Risk Factors: DM, Current or recent (<one month) smoker, HTN, HLP, family history of CAD, obesity. Risk Scores: Score 0 - 3: 2.5% MACE over next 6 weeks - Discharge Home Score 4 - 6: 20.3% MACE over next 6 weeks - Admit for Clinical Observation Score 7 - 10: 72.7% MACE over next 6 weeks - Early Invasive Strategies Allergies: Allergies: Allergies Coded Allergies Type Severity Reaction Last Updated Verified codeine Allergy Intermediate rash 05/11/14 No latex Allergy Intermediate rash 05/11/14 No Physical Exam: PE: PHYSICAL EXAM: CONSTITUTIONAL: Well developed, well nourished HEAD: normocephalic, atraumatic EENT: PERRL, EOMI. Conjunctivae normal color, sclerae non-icteric; moist mucous membranes. NECK: Supple, non-tender; no meningismus. LUNGS: Lungs CTA, breathing even and unlabored. Normal air movement. Oxygen saturation 100% on room air. HEART: Regular rate and rhythm, no murmur CHEST: No deformity; non-tender ABDOMEN: The abdomen is soft, and non-tender, no masses or bruits. EXTREM: Normal ROM; no deformity, no calf tenderness. Normal pulses palpable in all extremities. There is no pedal edema. SKIN: No rash; no diaphoresis NEURO: Alert; normal speech and cognition; CN's grossly intact; strength grossly intact without focal deficit. BACK: No CVA TTP. Current Patient Data: Labs: Laboratory Tests Test 03/10/20 16:56 White Blood Count 4.7 x10^3/uL Red Blood Count 3.62 x10^6/uL Hemoglobin 10.2 g/dL Hematocrit 32.2 % Mean Corpuscular Volume 89 fL Mean Corpuscular Hemoglobin 28 pg Mean Corpuscular Hemoglobin Concent 32 g/dL Red Cell Distribution Width 17.8 % Platelet Count 170 x10^3/uL Neutrophils (%) (Auto) 55 % Lymphocytes (%) (Auto) 36 % Monocytes (%) (Auto) 6 % Eosinophils (%) (Auto) 2 % Basophils (%) (Auto) 2 % Neutrophils # (Auto) 2.6 x10^3uL Lymphocytes # (Auto) 1.7 x10^3/uL Monocytes # (Auto) 0.3 x10^3/uL Eosinophils # (Auto) 0.1 x10^3/uL Basophils # (Auto) 0.1 x10^3/uL Sodium Level 140 mmol/L Potassium Level 3.7 mmol/L Chloride Level 105 mmol/L Carbon Dioxide Level 28 mmol/L Anion Gap 7 Blood Urea Nitrogen 12 mg/dL Creatinine 1.1 mg/dL Estimated GFR (Cockcroft-Gault) 63.1 BUN/Creatinine Ratio 11 Glucose Level 91 mg/dL Lactic Acid Level 0.6 mmol/L Calcium Level 8.4 mg/dL Total Bilirubin 0.8 mg/dL Aspartate Amino Transf (AST/SGOT) 18 U/L Alanine Aminotransferase (ALT/SGPT) 33 U/L Alkaline Phosphatase 72 U/L ID-Tlh-G-Type Natriuretic Peptide 639 pg/mL Total Protein 6.5 g/dL Albumin 3.2 g/dL Albumin/Globulin Ratio 1.0 Influenza Type A (Rapid) Negative Influenza Type B (Rapid) Negative Current Medications Medications (Trade) Dose Ordered Sig/Kristy Route PRN Reason Start Time Stop Time Status Last Admin Dose Admin Ondansetron HCl (Zofran) 4 mg 1X ONCE IVP 03/10/20 17:15 03/10/20 17:16 DC 03/10/20 17:12 Ondansetron HCl (Zofran) 4 mg STK-MED ONCE .ROUTE 03/10/20 17:04 03/10/20 17:04 DC Vital Signs: Vital Signs Date Time Temp Pulse Resp B/P (MAP) Pulse Ox O2 Delivery O2 Flow Rate FiO2 03/10/20 16:18 98.3 67 16 135/85 (102) 99 Room Air EKG: EKG: Normal sinus rhythm at a rate of 67 bpm, left axis deviation, normal intervals. There are no acute ischemic ST/T changes.[] Radiology/Procedures: Radiology/Procedures: PROCEDURE: PORTABLE CHEST 1V Single view chest dated 03/10/2020. Comparison made to 12/30/2019. Clinical indication: Cough. FINDINGS: Single upright portable exam performed. Heart and mediastinal contours are stable. Right-sided port in place, unchanged. Lungs are clear. No consolidation or pleural effusion. No pneumothorax. IMPRESSION: No acute radiographic abnormality.[] Course & Med Decision Making: Course & Med Decision Making Pertinent Labs and Imaging studies reviewed. (See chart for details) [] Patient remains stable. I discussed test results, the need for close follow- up, and return precautions. Dragon Disclaimer: Dragon Disclaimer: This electronic medical record was generated, in whole or in part, using a voice recognition dictation system. Departure Departure: Impression: Primary Impression: Cough Disposition: 01 HOME, SELF-CARE Condition: STABLE Referrals: SANDEE BUTLER MD (PCP) Patient Instructions: Cough, Adult, Nausea, Adult Additional Instructions: Thank you for visiting [facility]. We appreciate you trusting us with your care. If any additional problems come up don't hesitate to return to visit us. Please follow up with your primary care provider so they can plan a dditional care if needed and know about the problem that you had. If symptoms worsen come back to the Emergency Department. Any concerning symptoms that start such as chest pain, shortness of air, weakness or numbness on one side of the body, running high fevers or any other concerning symptoms return to the ER. You have a viral syndrome which may include symptoms like muscle aches, fevers, chills, runny nose, cough, sneezing, sore throat, vomiting, or diarrhea. One of the potential viruses that you may have is SARS-CoV-2, the virus that causes COVID-19, also known as the Coronavirus. You are just as likely to have a different viral infection such as the common cold, flu, etc. Most patients with the Coronavirus have mild symptoms and recover on their own. Resting, staying hydrated, and sleep from known cases can be helpful. As of todays visit, you are well enough to go home and treat your symptoms with oral fluids and over the counter medications. Coronavirus testing is not performed on most people with mild symptoms who are being discharged from the emergency department. If Coronavirus testing was performed the results will not be available for possibly up to 2-3 days. If your result is positive you will be contacted. Please follow the following precautions at home: 1) Stay home except to get medical care. 2) As advised by the CDC we recommend you stay in your home and minimize con tact with other people. We do not want you to spread the infection. 3) Those who are older or have significant medical issues may have more severe symptoms from this infection. We recommend self-isolation,FOR AT LEAST 7 DAYS after your 1st day of symptoms. AFTER you feel better please wait AT LEAST ANOTHER WEEK before returning to regular activities and being around other people! 4) IF you become sicker and have difficulty breathing, chest pain, unable to eat/drink, severe vomiting, diarrhea, or weakness you may need to return to the Emergency Department. 5) You should restrict activities outside your home, except for getting medic al care. DO NOT go to work, school, or public areas. Avoid using public transportation, ride sharing, or taxis. 6) Separate yourself from other people in your home. You should use a separate bathroom if possible. 7) Avoid sharing personal household items such as dishes, cups, eating utensils, towels, etc. 8) Clean all high touch surfaces every day (door knobs, counter tops, etc). U se a household cleaning spray or wipe per label instructions. 9) Clean your hands often. Wash your hands with soap and water for at least 20 seconds. 10) Cover your mouth and nose with a tissue when you cough or sneeze. 11) Throw used tissues in a trash can and immediately wash your hands. For additional resources please visit the CDC website or the [facility] ([phone]). Scripts Ondansetron (ONDANSETRON ODT) 4 Mg Tab.rapdis 1 TAB PO PRN Q6-8HRS for N/V, #15 TAB Prov: TOSHIA THOMAS MD 03/10/20 TOSHIA THOMAS MD March 10, 2020 16:39
[2020-03-10] MEDS ORDERED: ONDANSETRON PF 4 MG/2 ML VIAL. ONE (17:04)
[2020-03-10] MEDS ORDERED: ONDANSETRON PF 4 MG/2 ML VIAL. IVP ONE (17:15)
[2020-03-10 17:18] LABS: BASO # 0.1 x10^3/uL (0.0-0.2); BASO % 2 % (0-3); EOS # 0.1 x10^3/uL (0.0-0.7); EOS % 2 % (0-3); HEMATOCRIT 32.2 % (36.0-47.0); HEMOGLOBIN 10.2 g/dL (12.0-15.5); LYMPH # 1.7 x10^3/uL (1.0-4.8); LYMPH % 36 % (24-48); MEAN CORPUSCULAR HEMOGLOBIN 28 pg (25-35); MEAN CORPUSCULAR HGB CONC 32 g/dL (31-37); MEAN CORPUSCULAR VOLUME 89 fL (79-100); MONO # 0.3 x10^3/uL (0.0-1.1); MONO % 6 % (0-9); NEUT # 2.6 x10^3uL (1.8-7.7); NEUT % 55 % (31-73); PLATELET COUNT 170 x10^3/uL (140-400); RED BLOOD COUNT 3.62 x10^6/uL (3.50-5.40); RED CELL DISTRIBUTION WIDTH 17.8 % (11.5-14.5); WHITE BLOOD COUNT 4.7 x10^3/uL (4.0-11.0)
--- NOTE | 2020-03-10 17:19 | RAD ---
Single view chest dated 03/10/2020. Comparison made to 12/30/2019. Clinical indication: Cough. FINDINGS: Single upright portable exam performed. Heart and mediastinal contours are stable. Right-sided port in place, unchanged. Lungs are clear. No consolidation or pleural effusion. No pneumothorax. IMPRESSION: No acute radiographic abnormality. Electronically signed by: Jalen Foster MD (03/10/2020 5:17 PM) SANCHEZ
[2020-03-10 17:23] LABS: CALCIUM 8.4 mg/dL (8.5-10.1); CREATININE 1.1 mg/dL (0.6-1.0); GFR 63.1; POTASSIUM 3.7 mmol/L (3.5-5.1)
[2020-03-10 17:31] LABS: INFLUENZA A PATIENT NEGATIVE (NEGATIVE); INFLUENZA B PATIENT NEGATIVE (NEGATIVE)
[2020-03-10 17:35] LABS: ALBUMIN 3.2 g/dL (3.4-5.0); TOTAL BILIRUBIN 0.8 mg/dL (0.2-1.0); TOTAL PROTEIN 6.5 g/dL (6.4-8.2)
[2020-03-10 17:38] VITALS: BP 123/71
[2020-03-10] MEDS ORDERED: ONDA4TAB12 PO (17:56)
--- NOTE | 2020-03-11 03:55 | EKG ---
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
== END 2020-03-10 18:04 | disposition home or self-care (01) ==
LOC: ER 16:07
DX: R05 Cough (principal); Z20.828 Contact with and (suspected) exposure to other viral communicable diseases; I10 Essential (primary) hypertension; E03.9 Hypothyroidism, unspecified; Z86.2 Personal history of diseases of the blood and blood-forming organs and certain disorders involving the immune mechanism; Z98.84 Bariatric surgery status; Z88.5 Allergy status to narcotic agent; Z91.040 Latex allergy status
CPT/HCPCS: 36415; 71045; 80053; 83605; 83880; 85025; 87635; 87804; 93005; 96374; 99285; J2405

== ENCOUNTER 2020-08-12 08:47 | Emergency (ER) | payer OTHER ==
[~2020-08-12] VITALS: Ht 175.3 cm; Wt 81.0 kg
[~2020-08-12 08:47] MED LIST changes: -ZOLP12.54 PO; +ZOLP12.56 PO
[2020-08-12] MEDS ORDERED: IBUPROFEN 600 MG TABLET. PO ONE (09:30)
--- NOTE | 2020-08-12 10:05 | RAD ---
KNEE RIGHT 3V History: Pain after a fall Comparison: None. Findings: 3 views of the right knee are submitted. No acute fracture is identified by radiographs. There is moderate osteoarthritic change greatest of the medial compartment and to lesser degree of patellofemoral articulation. Impression: 1. No acute fracture is identified by radiographs. There is osteoarthritic change greatest of the medial compartment and patellofemoral articulation. Electronically signed by: Rene Schreiber MD (08/12/2020 10:01 AM) [facility]
[2020-08-12] MEDS ORDERED: TRAM50TA PO (10:12)
--- NOTE | 2020-08-12 10:13 | PHYS DOC ---
Past History Past Medical History: Hypertension, Hypothyroid Additional Past Medical Histor: goiters; has been requiring iron infusions for her anemia Past Surgical History: Cholecystectomy, , Hysterectomy Additional Past Surgical Histo: foot surg; partial thyroidectomy Smoking: Non-smoker Alcohol Use: Rarely Drug Use: None General Adult EDM: Chief Complaint: KNEE INJURY HPI: HPI: Patient is a [age] year old [sex] who presents with [] Review of Systems: Review of Systems: Constitutional: Denies fever or chills Eyes: Denies change in visual acuity HENT: Denies nasal congestion or sore throat Respiratory: Denies cough or shortness of breath Cardiovascular: Denies chest pain or edema GI: Denies abdominal pain, nausea, vomiting, bloody stools or diarrhea : Denies dysuria Musculoskeletal: Denies back pain or joint pain Integument: Denies rash Neurologic: Denies headache, focal weakness or sensory changes Endocrine: Denies polyuria or polydipsia Lymphatic: Denies swollen glands Psychiatric: Denies depression or anxiety Heart Score: Risk Factors: Risk Factors: DM, Current or recent (<one month) smoker, HTN, HLP, family history of CAD, obesity. Risk Scores: Score 0 - 3: 2.5% MACE over next 6 weeks - Discharge Home Score 4 - 6: 20.3% MACE over next 6 weeks - Admit for Clinical Observation Score 7 - 10: 72.7% MACE over next 6 weeks - Early Invasive Strategies Current Medications: Current Meds: Current Medications Medications (Trade) Dose Ordered Sig/Kristy Start Time Stop Time Status Last Admin Dose Admin Ibuprofen (Motrin) 600 mg 1X ONCE 08/12/20 09:30 08/12/20 09:31 DC 08/12/20 09:44 600 MG Allergies: Allergies: Allergies Coded Allergies Type Severity Reaction Last Updated Verified codeine Allergy Intermediate rash 05/11/14 No latex Allergy Intermediate rash 05/11/14 No Physical Exam: PE: Constitutional: Well developed, well nourished, no acute distress, non-toxic appearance. [] HENT: Normocephalic, atraumatic, bilateral external ears normal, oropharynx moist, no oral exudates, nose normal. [] Eyes: PERRLA, EOMI, conjunctiva normal, no discharge. [] Neck: Normal range of motion, no tenderness, supple, no stridor. [] Cardiovascular:Heart rate regular rhythm, no murmur [] Lungs & Thorax: Bilateral breath sounds clear to auscultation [] Abdomen: Bowel sounds normal, soft, no tenderness, no masses, no pulsatile masses. [] Skin: Warm, dry, no erythema, no rash. [] Back: No tenderness, no CVA tenderness. [] Extremities: No tenderness, no cyanosis, no clubbing, ROM intact, no edema. [] Neurologic: Alert and oriented X 3, normal motor function, normal sensory function, no focal deficits noted. [] Psychologic: Affect normal, judgement normal, mood normal. [] Current Patient Data: Vital Signs: Vital Signs Date Time Temp Pulse Resp B/P (MAP) Pulse Ox O2 Delivery O2 Flow Rate FiO2 08/12/20 09:12 98.4 79 16 129/81 (97) 99 Room Air EKG: EKG: [] Radiology/Procedures: Radiology/Procedures: PROCEDURE: KNEE RIGHT 3V KNEE RIGHT 3V History: Pain after a fall Comparison: None. Findings: 3 views of the right knee are submitted. No acute fracture is identified by radiographs. There is moderate osteoarthritic change greatest of the medial compartment and to lesser degree of patellofemoral articulation. Impression: 1. No acute fracture is identified by radiographs. There is osteoarthritic change greatest of the medial compartment and patellofemoral articulation. Electronically signed by: Rene Schreiber MD (08/12/2020 10:01 AM) [facility] Course & Med Decision Making: Course & Med Decision Making Pertinent Labs and Imaging studies reviewed. (See chart for details) [] Jose R Disclaimer: Jose R Disclaimer: This electronic medical record was generated, in whole or in part, using a voice recognition dictation system. Departure Departure: Impression: Primary Impression: Knee pain, right Qualified Codes: M25.561 - Pain in right knee Additional Impression: Fall Qualified Codes: W19.XXXA - Unspecified fall, initial encounter Disposition: 01 DC HOME SELF CARE/HOMELESS Condition: STABLE Referrals: SANDEE BUTLER MD (PCP) LEN GONG MD Patient Instructions: Crutch Use, [id number]-[id number], Knee Pain, Wjdk-as-Koqo, Knee Wraps (Elastic Bandage) and RICE Additional Instructions: ICE area of discomfort/swelling 20 min on then leave off next 20 mins. Repeat several times daily as needed for next days. Scripts Tramadol Hcl (TRAMADOL HCL) 50 Mg Tablet 50 MG PO PRN Q6HRS PRN for PAIN, #14 TAB Prov: DAYLIN ALAN DO 08/12/20 DAYLIN ALAN DO Aug 12, 2020 10:13
[2020-08-12 10:25] VITALS: BP 124/79
== END 2020-08-12 10:30 | disposition home or self-care (01) ==
LOC: ER 08:47
DX: M25.561 Pain in right knee (principal); R22.31 Localized swelling, mass and lump, right upper limb; I10 Essential (primary) hypertension; E03.9 Hypothyroidism, unspecified; Z88.5 Allergy status to narcotic agent; Z91.040 Latex allergy status; W17.89XA Other fall from one level to another, initial encounter; Y93.E9 Activity, other interior property and clothing maintenance; Y92.89 Other specified places as the place of occurrence of the external cause; Y99.8 Other external cause status
CPT/HCPCS: 73562; 99284

== ENCOUNTER 2020-11-20 06:56 | Emergency (ER) | payer OTHER ==
[~2020-11-20] VITALS: Ht 175.3 cm; Wt 83.0 kg
[~2020-11-20 06:56] MED LIST changes: -BUPR-192 PO; +BUPR150T7 PO; +TRAM50TA PO
[2020-11-20 07:17] VITALS: BP 141/96
--- NOTE | 2020-11-20 07:34 | EKG ---
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
--- NOTE | 2020-11-20 08:13 | PHYS DOC ---
Past History Past Medical History: Anemia, Hypertension, Hypothyroid Additional Past Medical Histor: goiters; has been requiring iron infusions for her anemia Past Surgical History: Cholecystectomy, , Hysterectomy Additional Past Surgical Histo: foot surg; partial thyroidectomy, right knee Smoking: Non-smoker Alcohol Use: None Drug Use: None Adult General Chief Complaint Chief Complaint: MECHANICAL FALL HPI HPI Patient is a 55-year-old female with past medical history of hypothyroidism, bipolar disorder, high blood pressure who presents to the emergency room complaining of dizziness and fall. Patient states that she has been having d izzibetina for the last 3 days since they changed her Geodon. She got out of bed this morning and felt very dizzy at that time and made it into the bathroom before she fell to the floor. She states that she hit her head hard but does not believe she lost consciousness at that time. She is having right hip pain and right hand pain from trying to catch herself. She states the pain is aching. She states the entire side of her head is a throbbing pain. She was able to pull herself up on the toilet and get into a sitting position. She then lost consciousness and does not remember much after that. She denies any nausea or vomiting. She is able to move her arms and legs without difficulty. She feels very fatigued. This happens to her about every 2 months according to the . She has been taking all of her medications as prescribed. Review of Systems Review of Systems Complete ROS is negative unless otherwise documented in HPI Allergies Allergies Allergies Coded Allergies Type Severity Reaction Last Updated Verified codeine Allergy Intermediate rash 11/20/20 No latex Allergy Intermediate rash 11/20/20 No acetaminophen Allergy Unknown 11/20/20 Yes hydrocodone Allergy Unknown 11/20/20 Yes Physical Exam Physical Exam General: Awake, alert, NAD. Well Nourished, well hydrated. Cooperative HEENT: Abrasion to the right forehead with swelling, EOMI, PERRL, airway patent, moist oral mucosa, no nasal septal hematoma, no facial crepitus or deformity Neck: Supple, trachea midline, no C-spine tenderness Respiratory: CTA bilaterally, normal effort, no wheezing/crackles, no crepitus CV: RRR, no murmur, cap refill <2, 2+ bilateral radial/DP pulses GI: Soft, nondistended, nontender, no masses MSK: No obvious deformities, right hand tenderness without swelling or bruising, intact range of motion in all joints, pelvis stable and right hip tenderness Skin: Warm, dry, small abrasion to the head Neuro: A&O x3, speech NL, sensory and motor grossly intact, no focal deficits Psych: Normal affect, normal mood, not suicidal or homicidal Current Patient Data Vital Signs Vital Signs Date Time Temp Pulse Resp B/P (MAP) Pulse Ox O2 Delivery O2 Flow Rate FiO2 11/20/20 07:17 98.6 94 20 141/96 (111) 96 Room Air EKG EKG [] Radiology/Procedures Radiology/Procedures [] Heart Score Risk Factors: Risk Factors: DM, Current or recent (<one month) smoker, HTN, HLP, family history of CAD, obesity. Risk Scores: Risk Factors: DM, Current or recent (<one month) smoker, HTN, HLP, family history of CAD, obesity. Course & Med Decision Making Course & Med Decision Making Pertinent Labs and Imaging studies reviewed. (See chart for details) Patient is 55-year-old female who presents to the emergency room after getting dizzy and falling hitting her head. Lab work was ordered to evaluate patient's dizziness and is normal. Her hemoglobin is normal despite her history of anemia. CT head and x-rays are normal. Family states that her dizziness typically comes from her medication changes when they change her Geodon which was changed 3 days ago. Patient does appear to have a concussion. I have discussed with them concussion protocol as well as symptoms that would require her to return to the emergency room. Patient's test results and vitals while in the ED were fully reviewed and discussed with the patient. Patient is stable and at this time does not need admission to the hospital. We have discussed strict return precautions and the importance of following up with their Primary Care Physician. Patient stated understanding and was given an opportunity to ask any questions. Patient is in agreement with plan. Dragon Disclaimer Dragon Disclaimer This electronic medical record was generated, in whole or in part, using a voice recognition dictation system. Departure Departure: Impression: Primary Impression: Dizzy Additional Impression: Closed head injury Disposition: 01 DC HOME SELF CARE/HOMELESS Condition: STABLE Referrals: SANDEE BUTLER MD (PCP) Patient Instructions: Concussion and Brain Injury Scripts Sumatriptan Succinate (SUMATRIPTAN SUCCINATE) 100 Mg Tablet 1 TAB PO UD PRN for HEADACHE, #9 TAB 3 Refills Take 1 tablet for headache. Repeat in 1 hour if headache does not improve. Do not take more than 2 in a 24 hour period Prov: MARLENE BARRIGA MD 11/20/20 Problem Qualifiers MARLENE BARRIGA MD Nov 20, 2020 08:13
[2020-11-20 08:26] LABS: BASO # 0.1 x10^3/uL (0.0-0.2); BASO % 2 % (0-3); EOS # 0.1 x10^3/uL (0.0-0.7); EOS % 2 % (0-3); HEMATOCRIT 37.3 % (36.0-47.0); LYMPH # 1.4 x10^3/uL (1.0-4.8); LYMPH % 40 % (24-48); MEAN CORPUSCULAR HEMOGLOBIN 29 pg (25-35); MEAN CORPUSCULAR HGB CONC 32 g/dL (31-37); MEAN CORPUSCULAR VOLUME 89 fL (79-100); MONO # 0.2 x10^3/uL (0.0-1.1); MONO % 7 % (0-9); NEUT # 1.7 x10^3uL (1.8-7.7); NEUT % 50 % (31-73); PLATELET COUNT 183 x10^3/uL (140-400); RED BLOOD COUNT 4.19 x10^6/uL (3.50-5.40); RED CELL DISTRIBUTION WIDTH 13.2 % (11.5-14.5); WHITE BLOOD COUNT 3.5 x10^3/uL (4.0-11.0)
[2020-11-20 08:29] LABS: CALCIUM 8.8 mg/dL (8.5-10.1); CREATININE 1.5 mg/dL (0.6-1.0); POTASSIUM 3.9 mmol/L (3.5-5.1)
--- NOTE | 2020-11-20 08:33 | RAD ---
AP pelvis to include bilateral two-view hip radiographs 11/20/2020 CLINICAL HISTORY: Fall with pelvic and hip injury. An AP digital radiograph of the pelvis was obtained. AP and lateral digital radiographs of both hips were obtained. No pelvic bone fracture is seen. No fracture or dislocation of either hip is noted. Mi ld degenerative changes are seen involving both hips. Mild degenerative changes are seen involving darren th SI joints. Calcifications are seen within the pelvis consistent with phleboliths. IMPRESSION: No fracture or dislocation is seen. Electronically signed by: Blaise Caballero MD (11/20/2020 8:30 AM) [id number]
[2020-11-20 08:35] LABS: ALBUMIN 3.8 g/dL (3.4-5.0); ALBUMIN/GLOBULIN RATIO 1.1 (1.0-1.7); TOTAL BILIRUBIN 0.6 mg/dL (0.2-1.0); TOTAL PROTEIN 7.4 g/dL (6.4-8.2)
--- NOTE | 2020-11-20 08:35 | RAD ---
AP portable chest radiograph 11/20/2020 Clinical History: Fall with dizziness. An AP erect portable digital radiograph of the chest was obtained. Comparison study is dated 03/10/2020. A right internal jugular Qdxfvb-[id number]-Xavx type catheter is unchanged in position. The cardiac silhouette is mildly enlarged. The thoracic aorta is tortuous. Atherosclerotic calcification of the thoracic ao rta is seen. Linear bands of scarring are seen involving left lower lobe, unchanged. No acute pulmona ry infiltrate is seen. No pleural effusion or pneumothorax is noted. The osseous structures are gross ly intact. IMPRESSION: No acute abnormality is seen. Electronically signed by: Blaise Caballero MD (11/20/2020 8:32 AM) [id number]
--- NOTE | 2020-11-20 08:37 | RAD ---
CT scan of the head without contrast 11/20/2020 Clinical History: Fall with dizziness. Head injury. Technique: Unenhanced, contiguous, 5 mm axial sections were obtained through the head. One or more of the following individualized dose reduction techniques were utilized for this study: 1. Automated exposure control. 2. Adjustment of the mA and/or kV according to patient size. 3. Use of iterative reconstruction technique. Findings: Comparison study is dated 07/18/2019. There is generalized parenchymal atrophy. No acute parenchymal abnormality is seen. No extra-axial fl uid collection is noted. No skull fracture is seen. Soft tissue swelling seen involving the right fro ntal scalp. Impression: No acute intracranial abnormality is seen. Electronically signed by: Blaise Caballero MD (11/20/2020 8:34 AM) [id number]
--- NOTE | 2020-11-20 08:38 | RAD ---
Two-view right hand radiographs 11/20/2020 CLINICAL HISTORY: Fall with injury to the right hand. PA and lateral digital radiographs of the right hand were obtained. No fracture or dislocation of the right hand is seen. No radiopaque foreign body is noted. Mild degenerative changes are seen scattere d throughout the interphalangeal joints of the right hand. IMPRESSION: No fracture or dislocation of the right hand is seen. Electronically signed by: Blaise Caballero MD (11/20/2020 8:36 AM) [id number]
[2020-11-20] MEDS ORDERED: SUMA100T4 PO (09:11)
[2020-11-20] MEDS ORDERED: HEPARIN PF 500 UNIT/5 ML DISP.SYRIN. IVP ONE (09:15)
== END 2020-11-20 09:35 | disposition home or self-care (01) ==
LOC: ER 07:07
DX: S00.81XA Abrasion of other part of head, initial encounter (principal); M25.551 Pain in right hip; M79.641 Pain in right hand; R42 Dizziness and giddiness; I10 Essential (primary) hypertension; E03.9 Hypothyroidism, unspecified; Z86.2 Personal history of diseases of the blood and blood-forming organs and certain disorders involving the immune mechanism; Z88.5 Allergy status to narcotic agent; Z91.040 Latex allergy status; Z88.8 Allergy status to other drugs, medicaments and biological substances; W18.39XA Other fall on same level, initial encounter; Y93.89 Activity, other specified; Y92.89 Other specified places as the place of occurrence of the external cause; Y99.8 Other external cause status
CPT/HCPCS: 36415; 70450; 71045; 73120; 73521; 80053; 84484; 85025; 93005; 96374; 99285-25

== ENCOUNTER 2020-11-28 12:19 | Emergency (ER) | payer OTHER ==
[~2020-11-28] VITALS: Ht 175.3 cm; Wt 83.0 kg
[~2020-11-28 12:19] MED LIST changes: +SUMA100T4 PO
--- NOTE | 2020-11-28 12:48 | PHYS DOC ---
Past History Past Medical History: Anemia, Arthritis, Hypertension, Hypothyroid, Renal Disease Additional Past Medical Histor: goiters; has been requiring iron infusions for her anemia Past Surgical History: Cholecystectomy, , Hysterectomy Additional Past Surgical Histo: foot surg; partial thyroidectomy, right knee Smoking: Non-smoker Alcohol Use: None Drug Use: None Adult General Chief Complaint Chief Complaint: LOWER EXT PAIN HPI HPI Patient is a 55-year-old female presents to the emergency department complaining of stumbling and falling x4 since she was diagnosed with a concussion a week ago here at this emergency department. Patient has a past medical history of hypothyroidism, goiters, anemia with every 3 month iron infusions, high blood pressure, bipolar disorder. Patient states she has a bruise on her right thigh, right knee, and left knee from the falls. Patient denies head pain or head injury, patient states she has intermittent dizziness since her diagnosis of concussion a week ago. Patient states she has a neurology appointment this Monday and a nephrology appointment next Monday and an upcoming hematology appointment all at [facility] clinics. Patient states she is worried that the bruising may cause blood clots. The patient complains of a 6/10 pain on a 1-10 pain scale. Patient currently denies any dizziness, headaches, neck pain, back pain, chest pain, shortness of breath, chest congestion. Patient denies any recent fever or chills. Patient denies any numbness or tingling to her extremities. Patient denies any increased thirst or increased urination. Patient denies any skin rashes. Patient denies any COVID-19 symptoms and does not wish to be checked today for the COVID-19 virus. Review of Systems Review of Systems 14 body systems of review of systems have been reviewed. See HPI for pertinent positives and negative responses, otherwise all other systems are negative, nonpertinent or noncontributory. Allergies Allergies Allergies Coded Allergies Type Severity Reaction Last Updated Verified codeine Allergy Intermediate rash 11/20/20 No latex Allergy Intermediate rash 11/20/20 No acetaminophen Allergy Unknown 11/20/20 Yes hydrocodone Allergy Unknown 11/20/20 Yes Physical Exam Physical Exam Constitutional: Well developed, well nourished, no acute distress, non-toxic appearance. HENT: Normocephalic, atraumatic, bilateral external ears normal, oropharynx moist, no oral exudates, nose normal. Eyes: PERRLA, EOMI, conjunctiva normal, no discharge. Neck: Normal range of motion, no tenderness, supple, no stridor. No nuchal rigidity, no meningismus signs. Cardiovascular:Heart rate regular rhythm, no murmur, heart sounds S1-S2 auscultation. Lungs & Thorax: Bilateral breath sounds clear to auscultation all lung hare. Abdomen: Bowel sounds normal, soft, no tenderness, no masses, no pulsatile masses. Skin: Warm, dry, no erythema, no rash. Back: No tenderness, no CVA tenderness. Extremities: No tenderness, no cyanosis, no clubbing, ROM intact, no edema. Contusion to right lateral thigh distal femur, contusion to right lateral knee, contusion to left lateral knee. Negative Homans' sign bilaterally, no calf pain bilaterally, no pain elicited with passive range of motion. 2+ dorsalis pedis/posterior tibial pulses bilaterally, no edema appreciated bilaterally. No loss of sensation of the lower extremities. Neurologic: Alert and oriented X 3, normal motor function, normal sensory function, no focal deficits noted. [] Psychologic: Affect normal, judgement normal, mood normal. [] Current Patient Data Vital Signs Vital Signs Date Time Temp Pulse Resp B/P (MAP) Pulse Ox O2 Delivery O2 Flow Rate FiO2 11/28/20 12:29 98.0 75 16 135/91 (106) 98 Room Air Lab Results Laboratory Tests Test 11/28/20 13:05 11/28/20 13:30 White Blood Count 3.3 x10^3/uL Red Blood Count 3.92 x10^6/uL Hemoglobin 11.1 g/dL Hematocrit 35.3 % Mean Corpuscular Volume 90 fL Mean Corpuscular Hemoglobin 28 pg Mean Corpuscular Hemoglobin Concent 31 g/dL Red Cell Distribution Width 13.3 % Platelet Count 175 x10^3/uL Neutrophils (%) (Auto) 50 % Lymphocytes (%) (Auto) 40 % Monocytes (%) (Auto) 8 % Eosinophils (%) (Auto) 2 % Basophils (%) (Auto) 0 % Neutrophils # (Auto) 1.7 x10^3uL Lymphocytes # (Auto) 1.3 x10^3/uL Monocytes # (Auto) 0.3 x10^3/uL Eosinophils # (Auto) 0.1 x10^3/uL Basophils # (Auto) 0.0 x10^3/uL Sodium Level 142 mmol/L Potassium Level 3.7 mmol/L Chloride Level 106 mmol/L Carbon Dioxide Level 30 mmol/L Anion Gap 6 Blood Urea Nitrogen 13 mg/dL Creatinine 1.4 mg/dL Estimated GFR (Cockcroft-Gault) 47.6 BUN/Creatinine Ratio 9 Glucose Level 88 mg/dL Calcium Level 8.7 mg/dL Magnesium Level 1.9 mg/dL Total Bilirubin 0.5 mg/dL Aspartate Amino Transf (AST/SGOT) 18 U/L Alanine Aminotransferase (ALT/SGPT) 39 U/L Alkaline Phosphatase 100 U/L Troponin I Quantitative < 0.017 ng/mL Total Protein 6.9 g/dL Albumin 3.4 g/dL Albumin/Globulin Ratio 1.0 Urine Collection Type Unknown Urine Color Yellow Urine Clarity Cloudy Urine pH 5.5 Urine Specific [place] >=1.030 Urine Protein 30 mg/dl Urine Glucose (UA) Neg mg/dL Urine Ketones (Stick) Neg mg/dL Urine Blood Neg Urine Nitrite Neg Urine Bilirubin Neg Urine Urobilinogen Dipstick 0.2 mg/dL Urine Leukocyte Esterase Neg Urine RBC 1-2 /HPF Urine WBC 1-4 /HPF Urine Squamous Epithelial Cells Many /LPF Urine Amorphous Sediment Present /HPF Urine Bacteria Few /HPF EKG EKG EKG performed at 1322 by house radiology staff, shows a normal sinus rhythm with a heart rate of 86 bpm without ectopy, LA interval 0.166, QTc interval 0.447, no acute STEMI, no ACS, no acute ischemia appreciated, EKG interpreted by ED attending physician Dr. Hoffman. Radiology/Procedures Radiology/Procedures PATIENT: BEN BILLINGS AACCOUNT: [id number] : 1965 LOCATION: ER AGE: 55 SEX: F EXAM STATUS: REG ER ORD. PHYSICIAN: DAYLIN ALY APRN REASON: DIZZY, FALL PROCEDURE: CT HEAD WO CONTRAST EXAM: Head CT without contrast. HISTORY: Dizziness. Fall. TECHNIQUE: Computed tomographic images of the head were obtained without contra st. *One or more of the following individualized dose reduction techniques were utilized for this examination: 1. Automated exposure control. 2. Adjustment of the mA and/or kV according to patient size. 3. Use of iterative reconstruction technique. COMPARISON: 11/20/2020. FINDINGS: There is no acute or subacute extra-axial or intraparenchymal hemorrhage. There is no mass effect or midline shift. There is no hydrocephalus. There are areas of decreased attenuation within the cerebral white matter, n onspecific and likely related to chronic small vessel disease. The visualized portions of the orbits, paranasal sinuses and mastoid air cells are unremarkable. No suspicious calvarial lesion is seen. IMPRESSION: No acute intracranial findings. Electronically signed by: Sarah Marshall MD (11/28/2020 1:16 PM) [facility] DICTATED AND SIGNED BY: SARAH MARSHALL MD DATE: 11/28/20 1315 CC: DAYLIN ALY APRN; SANDEE BUTLER MD ~MTH0 0 Heart Score Risk Factors: Risk Factors: DM, Current or recent (<one month) smoker, HTN, HLP, family history of CAD, obesity. Risk Scores: Risk Factors: DM, Current or recent (<one month) smoker, HTN, HLP, family history of CAD, obesity. Course & Med Decision Making Course & Med Decision Making Pertinent Labs and Imaging studies reviewed. (See chart for details) 55-year-old female, vital signs reviewed, presents emergency department complaining of intermittent dizziness and falls since diagnosed with concussion last week. Patient's physical exam was unremarkable neurologically, however showed bruises/contusions to bilateral lower extremities. Related to patient's dizziness and falls, a CT head, cardiac work-up will be initiated in the ED today. ED work-up unremarkable, urinalysis has a showed bacteria most likely contaminat ed clean-catch, patient symptoms and intermittent falls are most likely postconcussive syndrome, discussed findings with patient, discussed need to keep appointment next week with her neurologist, staffing coordinator, team facilitator, patient gave verbal understanding of discharge home instructions, follow-up with specialty care next week, return to ER precautions and concerns, patient disch arged home without incident. Dragon Disclaimer Dragon Disclaimer This electronic medical record was generated, in whole or in part, using a voice recognition dictation system. Departure Departure: Impression: Primary Impression: Postconcussive syndrome Disposition: 01 DC HOME SELF CARE/HOMELESS Condition: GOOD Referrals: SANDEE BUTLER MD (PCP) Patient Instructions: Concussion and Brain Injury Additional Instructions: Please keep your appointments next week with your staffing coordinator and neurologist, return to the emergency department for worsening symptoms or other concerns. EMERGENCY DEPARTMENT GENERAL DISCHARGE INSTRUCTIONS Thank you for coming to [facility] (ED) today and trusting us with you care. We trust that you had a positivie experience in our Emergency Department. If you wish to speak to the department management, you may call the director at [phone]. YOUR FOLLOW UP INSTRUCTIONS ARE FOLLOWS: 1. Do you have a private Doctor? If you do not have a private doctor, please ask for a resource list of physicians or clinics that may be able to assist you with follow up care. 2. The Emergency Physician has interpreted your x-rays. The X-Ray specialist will also review them. If there is a change in the findings, you will be notified in 48 hours when at all possible. 3. A lab test or culture has been done, your results will be reviewed and you will be notified if you need a change in treatment. ADDITIONAL INSTRUCTIONS AND INFORMATION: 1. Your care today has been supervised by a physician who is specially trained in emergency care. Many problems require more than one evaluation for a complete diagnosis and treatment. We recommend that you schedule your follow up appointment as recommended to ensure complete treatment of you illness or injury. If you are unable to obtain follow up care and continue to have a problem, or if your condition worsens, we recommend that you return to the ED. 2. We are not able to safely determine your condition over the phone nor are we able to give sound medical advice over the phone. For these safety reasons, if you call for medical advice we will ask you to come to the ED for further evaluation. 3. If you have any questions regarding these discharge instructions please call the ED at [phone]. SAFETY INFORMATION: In the interest of safety, wellness, and injury prevention; we encourage you to wear your sealbelt, if you smoke; quite smoking, and we encourage family to use a protective helmet for bicycling and other sporting events that present an increased risk for head injury. IF YOUR SYMPTOMS WORSEN OR NEW SYMPTOMS DEVELOP, OR YOU HAVE CONCERNS ABOUT YOUR CONDITION; OR IF YOUR CONDITION WORSENS WHILE YOU ARE WAITING FOR YOUR FOLLOW UP APPOINTMENT; EITHER CONTACT YOUR PRIMARY CARE DOCTOR, THE PHYSICIAN WHOSE NAME AND NUMBER YOU WERE GIVEN, OR RETURN TO THE ED IMMEDIATELY. DAYLIN ALY APRN Nov 28, 2020 12:48
--- NOTE | 2020-11-28 13:18 | RAD ---
EXAM: Head CT without contrast. HISTORY: Dizziness. Fall. TECHNIQUE: Computed tomographic images of the head were obtained without contrast. *One or more of the following individualized dose reduction techniques were utilized for this examina tion: 1. Automated exposure control. 2. Adjustment of the mA and/or kV according to patient size. 3. Use of iterative reconstruction technique. COMPARISON: 11/20/2020. FINDINGS: There is no acute or subacute extra-axial or intraparenchymal hemorrhage. There is no mass effect or midline shift. There is no hydrocephalus. There are areas of decreased attenuation within the cerebral white matter, nonspecific and likely rel ated to chronic small vessel disease. The visualized portions of the orbits, paranasal sinuses and mastoid air cells are unremarkable. No s uspicious calvarial lesion is seen. IMPRESSION: No acute intracranial findings. Electronically signed by: Sarah Shafer MD (11/28/2020 1:16 PM) [facility]
[2020-11-28 13:19] LABS: BASO % 0 % (0-3); EOS # 0.1 x10^3/uL (0.0-0.7); EOS % 2 % (0-3); HEMATOCRIT 35.3 % (36.0-47.0); HEMOGLOBIN 11.1 g/dL (12.0-15.5); LYMPH # 1.3 x10^3/uL (1.0-4.8); LYMPH % 40 % (24-48); MEAN CORPUSCULAR HEMOGLOBIN 28 pg (25-35); MEAN CORPUSCULAR HGB CONC 31 g/dL (31-37); MEAN CORPUSCULAR VOLUME 90 fL (79-100); MONO # 0.3 x10^3/uL (0.0-1.1); MONO % 8 % (0-9); NEUT # 1.7 x10^3uL (1.8-7.7); NEUT % 50 % (31-73); PLATELET COUNT 175 x10^3/uL (140-400); RED BLOOD COUNT 3.92 x10^6/uL (3.50-5.40); RED CELL DISTRIBUTION WIDTH 13.3 % (11.5-14.5); WHITE BLOOD COUNT 3.3 x10^3/uL (4.0-11.0)
[2020-11-28 13:28] LABS: CALCIUM 8.7 mg/dL (8.5-10.1); CREATININE 1.4 mg/dL (0.6-1.0); GFR 47.6; POTASSIUM 3.7 mmol/L (3.5-5.1)
--- NOTE | 2020-11-28 13:30 | EKG ---
[address] [address] Test Date: 2020-11-28 Test Time: 13:22:13 Pat Name: BEN BILLINGS Department: Room: Gender: F Server: REUBEN : 1965 Requested By: DAYLIN ALY Order Number: [id number] Reading MD: Measurements Intervals [place] Rate: 68 P: 0 FL: 166 QRS: -10 QRSD: 84 T: 14 QT: 420 QTc: 447 Interpretive Statements SINUS RHYTHM LEFTWARD AXIS OTHERWISE NORMAL ECG RI6.02 No previous ECG available for comparison
[2020-11-28 13:33] LABS: ALBUMIN 3.4 g/dL (3.4-5.0); MAGNESIUM 1.9 mg/dL (1.8-2.4); TOTAL BILIRUBIN 0.5 mg/dL (0.2-1.0); TOTAL PROTEIN 6.9 g/dL (6.4-8.2)
[2020-11-28 13:59] LABS: CLARITY,URINE CLOUDY; COLOR,URINE YELLOW
[2020-11-28 14:00] LABS: AMORPHOUS SEDIMENT,UR PRESENT /HPF; BACTERIA,URINE FEW /HPF (0-FEW); BILIRUBIN,URINE NEG (NEG); GLUCOSE,URINE NEG (NEG); NITRITE,URINE NEG (NEG); SQUAMOUS EPITHELIAL CELL,UR MANY /LPF; UROBILINOGEN,URINE 0.2 mg/dL (0.2 mg/dL)
[2020-11-28 14:11] VITALS: BP 133/87
== END 2020-11-28 14:22 | disposition home or self-care (01) ==
LOC: ER 12:19
DX: R42 Dizziness and giddiness (principal); F07.81 Postconcussional syndrome; M19.90 Unspecified osteoarthritis, unspecified site; I10 Essential (primary) hypertension; E03.9 Hypothyroidism, unspecified; F31.9 Bipolar disorder, unspecified; Z86.2 Personal history of diseases of the blood and blood-forming organs and certain disorders involving the immune mechanism; Z88.5 Allergy status to narcotic agent; Z91.040 Latex allergy status; Z88.8 Allergy status to other drugs, medicaments and biological substances
CPT/HCPCS: 36415; 70450; 80053; 81001; 83735; 84484; 85025; 93005; 99285

== ENCOUNTER 2020-12-09 11:42 | Emergency (ER) | payer OTHER ==
[~2020-12-09] VITALS: Ht 175.3 cm; Wt 118.0 kg
--- NOTE | 2020-12-09 12:44 | PHYS DOC ---
Past History Past Medical History: Arthritis, Bipolar, Hypertension, Kidney Infection Additional Past Medical Histor: goiters; has been requiring iron infusions for her anemia Past Surgical History: Cholecystectomy, , Hysterectomy, Knee Replacement Additional Past Surgical Histo: foot surg; partial thyroidectomy, right knee Smoking: Non-smoker Alcohol Use: None Drug Use: None Adult General Chief Complaint Chief Complaint: [facility] HPI Patient is a 55-year-old female patient presents with nausea and malaise. Patient reports she has been feeling this for the last several weeks, states she been seen a specialist approximately 2 weeks ago following a fall, she had suffered a concussion 1 week prior to that. States since that time she has con tinued to feel dizzy, have nausea, not been able to eat and drink well perfused. States she was supposed to follow-up with a concussion provider, however has not been able to make this appointment yet. Reports he has history of chronic anemia, for which he sees hematology, and reports he has a history of early renal failure and she is supposed to follow-up with door attendant, however is not known to them for the last month and a half. States she has had some decreased urinary output over the last few days but also reports she has not been drinking much fluid, as anything she tries to drink seems to come right back up. States last bowel movement 4 days ago. States she had a gastric bypass approximately 3 years ago, . Denies any other abdominal surgeries. States she is passing gas Review of Systems Review of Systems Constitutional: Denies fever or chills [] reports generalized malaise Eyes: Denies change in visual acuity, redness, or eye pain [] denies photophobia HENT: Denies nasal congestion or sore throat [] Respiratory: Denies cough or shortness of breath [] Cardiovascular: No additional information not addressed in HPI [] GI: Denies vomiting, bloody stools or diarrhea [] complains of lower abdominal discomfort, reports nausea without vomiting : Denies dysuria or hematuria [] does report some decreased urinary output Musculoskeletal: Denies back pain or joint pain [] Integument: Denies rash or skin lesions [] Neurologic: Denies headache, focal weakness or sensory changes [] Endocrine: Denies polyuria or polydipsia [] All other systems were reviewed and found to be within normal limits, except as documented in this note. Allergies Allergies Allergies Coded Allergies Type Severity Reaction Last Updated Verified codeine Allergy Intermediate rash 11/20/20 No latex Allergy Intermediate rash 11/20/20 No acetaminophen Allergy Unknown 11/20/20 Yes hydrocodone Allergy Unknown 11/20/20 Yes Physical Exam Physical Exam Constitutional: Well developed, well nourished, no acute distress, non-toxic appearance. [] HENT: Normocephalic, atraumatic, bilateral external ears normal, oropharynx moist, no oral exudates, nose normal. [] Eyes: PERRLA, EOMI, conjunctiva normal, no discharge. [] No nystagmus. Neck: Normal range of motion, no tenderness, supple, no stridor. [] Cardiovascular:Heart rate regular rhythm, no murmur [] Lungs & Thorax: Bilateral breath sounds clear to auscultation [] Abdomen: Bowel sounds normal, soft, no masses, no pulsatile masses. [] Generalized tenderness to lower abdomen Skin: Warm, dry, no erythema, no rash. [] Back: No tenderness, no CVA tenderness. [] Extremities: No tenderness, no cyanosis, no clubbing, ROM intact, no edema. [] Negative Homans' sign Neurologic: Alert and oriented X 3, normal motor function, normal sensory function, no focal deficits noted. [] Visual hare intact Psychologic: Affect normal, judgement normal, mood normal. [] Current Patient Data Vital Signs Vital Signs Date Time Temp Pulse Resp B/P (MAP) Pulse Ox O2 Delivery O2 Flow Rate FiO2 12/09/20 12:20 98.1 92 16 157/105 (122) 98 Room Air EKG EKG []no STEMI per Dr Hernandez. Normal sinus rhythm @78, normal axis, normal intervals. Radiology/Procedures Radiology/Procedures PROCEDURE: CT ABD PELV W/ IV CONTRST ONLY CT abdomen and pelvis with contrast: Reason for examination: Abdominal pain. Comparison is made to previous study dated 07/31/2018. Helical images were obtained through the abdomen and pelvis with intravenous administration of 75 cc Omnipaque 350. Reconstruction was performed in sagittal and coronal planes. Exposure: One or more of the following individualized dose reduction techniques were utilized for this examination: 1. Automated exposure control 2. Ad justment of the mA and/or kV according to patient size 3. Use of iterative reconstruction technique. There is some atelectasis at the lung bases bilaterally. The heart size is normal with no pericardial effusion. No abnormality seen at the liver or spleen. Gallbladder surgically absent. Pancreas continues to show a small 5.2 mm hypodense lesion in the pancreatic body which appears to be slightly larger than on previous exam. Adrenal glands bilaterally appear thickened consistent with adrenal hyperplasia. The abdominal aorta and inferior vena cava show no abnormalities. There continues to be a small 5 mm hypodense lesion probably representing a cyst posteriorly at the midpole of the left kidney. No renal calculi, hydronephrosis or obstructive uropathy is seen. No abnormality seen at the appendix. There is no evidence of diverticulosis, diverticulitis or colitis. There are postop changes in the stomach and proximal small intestinal tract related to gastric bypass. There does appear to be some dilatation of the proximal small intestine in the left upper quadrant which may be result of bypass surgery. There is no apparent bowel obstruction. No abnormality seen at the bladder or vaginal cuff. No free fluid or free air seen in the abdomen or pelvis. There continue to be degenerative changes at facet joints at the L4-5 level. No acute bony abnormalities are seen. IMPRESSION: Linear atelectasis at the lung bases. 5.2 mm hypodense lesion in the body of the pancreas which appears to be slightly larger than on previous exam. Thickened adrenal glands bilaterally suggesting adrenal hyperplasia. 5 mm cystic-appearing lesion at the midpole of the left kidney. Postop changes from gastric bypass with some dilatation of the proximal small intestine which is probably related to the surgery. Electronically signed by: Nikki Sim MD (12/09/2020 1:53 PM) [facility] [] Heart Score Risk Factors: Risk Factors: DM, Current or recent (<one month) smoker, HTN, HLP, family history of CAD, obesity. Risk Scores: Risk Factors: DM, Current or recent (<one month) smoker, HTN, HLP, family history of CAD, obesity. Course & Med Decision Making Course & Med Decision Making Pertinent Labs and Imaging studies reviewed. (See chart for details) Patient reports Zofran never works, only Promethazine. Will change to Promethazine dosing in ER. []Patient reporting she feels about the same but better following. Reviewed results, with recommendation to increase fluids. Continue follow up as previously planned. Will provide Rx for Promethazine for nausea. patient in agreement with plan without further concerns. Dragon Disclaimer Dragon Disclaimer This electronic medical record was generated, in whole or in part, using a voice recognition dictation system. Departure Departure: Impression: Primary Impression: Nausea Additional Impression: Malaise Disposition: 01 DC HOME SELF CARE/HOMELESS Condition: GOOD Referrals: SANDEE BUTLER MD (PCP) Patient Instructions: Nausea, Adult Additional Instructions: As we discussed, continue to try to increase your fluid intake to stay hydrated. If you're not drinking fluids, you are likely to become lightheaded and at risk for falling. Take the Promethazine as needed for nausea. Follow up with your concussion doctor as you have scheduled as well as your primary care provider. Scripts Promethazine Hcl (PROMETHAZINE HCL) 25 Mg Tablet 1 TAB PO PRN Q6HRS for nausea, #20 TAB Prov: JOSIANE SAMSON APRN 12/09/20 Problem Qualifiers JOSIANE SAMSON APRN Dec 09, 2020 12:44
[2020-12-09] MEDS ORDERED: ONDANSETRON PF 4 MG/2 ML VIAL. IVP ONE (12:45)
[2020-12-09] MEDS ORDERED: IOHEXOL 300 MG/ML 75 ML VIAL. IV ONE (12:45)
[2020-12-09] MEDS ORDERED: IV NORMAL SALINE 1,000ML 1,000 ML IV ONE (12:45)
[2020-12-09 13:15] LABS: BASO % 1 % (0-3); EOS % 0 % (0-3); HEMOGLOBIN 13.1 g/dL (12.0-15.5); LYMPH # 0.8 x10^3/uL (1.0-4.8); LYMPH % 10 % (24-48); MEAN CORPUSCULAR HEMOGLOBIN 28 pg (25-35); MEAN CORPUSCULAR HGB CONC 32 g/dL (31-37); MEAN CORPUSCULAR VOLUME 89 fL (79-100); MONO # 0.2 x10^3/uL (0.0-1.1); MONO % 2 % (0-9); NEUT # 6.6 x10^3uL (1.8-7.7); NEUT % 87 % (31-73); PLATELET COUNT 186 x10^3/uL (140-400); RED BLOOD COUNT 4.62 x10^6/uL (3.50-5.40); RED CELL DISTRIBUTION WIDTH 13.1 % (11.5-14.5); WHITE BLOOD COUNT 7.6 x10^3/uL (4.0-11.0)
[2020-12-09] MEDS ORDERED: PROMETHAZINE 25 MG TABLET. PO ONE (13:15)
[2020-12-09 13:26] LABS: CALCIUM 8.9 mg/dL (8.5-10.1); CREATININE 1.1 mg/dL (0.6-1.0); GFR 62.9; POTASSIUM 3.6 mmol/L (3.5-5.1)
[2020-12-09 13:39] LABS: ALBUMIN 3.8 g/dL (3.4-5.0); ALBUMIN/GLOBULIN RATIO 0.9 (1.0-1.7); TOTAL BILIRUBIN 0.6 mg/dL (0.2-1.0)
--- NOTE | 2020-12-09 13:56 | RAD ---
CT abdomen and pelvis with contrast: Reason for examination: Abdominal pain. Comparison is made to previous study dated 07/31/2018. Helical images were obtained through the abdomen and pelvis with intravenous administration of 75 cc Omnipaque 350. Reconstruction was performed in sagittal and coronal planes. Exposure: One or more of the following individualized dose reduction techniques were utilized for thi s examination: 1. Automated exposure control 2. Adjustment of the mA and/or kV according to patient size 3. Use of iterative reconstruction technique. There is some atelectasis at the lung bases bilaterally. The heart size is normal with no pericardial effusion. No abnormality seen at the liver or spleen. Gallbladder surgically absent. Pancreas continues to show a small 5.2 mm hypodense lesion in the pancreatic body which appears to be slightly larger than on p revious exam. Adrenal glands bilaterally appear thickened consistent with adrenal hyperplasia. The ab dominal aorta and inferior vena cava show no abnormalities. There continues to be a small 5 mm hypode nse lesion probably representing a cyst posteriorly at the midpole of the left kidney. No renal calcu li, hydronephrosis or obstructive uropathy is seen. No abnormality seen at the appendix. There is no evidence of diverticulosis, diverticulitis or colitis. There are postop changes in the stomach and pr oximal small intestinal tract related to gastric bypass. There does appear to be some dilatation of t he proximal small intestine in the left upper quadrant which may be result of bypass surgery. There i s no apparent bowel obstruction. No abnormality seen at the bladder or vaginal cuff. No free fluid or free air seen in the abdomen or pelvis. There continue to be degenerative changes at facet joints at the L4-5 level. No acute bony ab normalities are seen. IMPRESSION: Linear atelectasis at the lung bases. 5.2 mm hypodense lesion in the body of the pancreas which appears to be slightly larger than on previ ous exam. Thickened adrenal glands bilaterally suggesting adrenal hyperplasia. 5 mm cystic-appearing lesion at the midpole of the left kidney. Postop changes from gastric bypass with some dilatation of the proximal small intestine which is prob ably related to the surgery. Electronically signed by: Nikki Sim MD (12/09/2020 1:53 PM) [facility]
[2020-12-09 14:27] VITALS: BP 153/87
[2020-12-09 14:57] LABS: COLOR,URINE STRAW
[2020-12-09 14:58] LABS: BACTERIA,URINE FEW /HPF (0-FEW); BILIRUBIN,URINE NEG (NEG); CLARITY,URINE CLEAR; GLUCOSE,URINE NEG (NEG); NITRITE,URINE NEG (NEG); SQUAMOUS EPITHELIAL CELL,UR FEW /LPF; UROBILINOGEN,URINE 0.2 mg/dL (0.2 mg/dL); WBC,URINE OCC /HPF (0-4)
[2020-12-09] MEDS ORDERED: PROM25TA10 PO (15:29)
--- NOTE | 2020-12-09 16:05 | EKG ---
[address] [address] Test Date: 2020-12-09 Test Time: 14:28:24 Pat Name: BEN BILLINGS Department: Room: Gender: F City Director: KENNY : 1965 Requested By: JOSIANE SAMSON Order Number: [id number] Reading MD: Measurements Intervals [place] Rate: 78 P: 14 [place]: 170 QRS: -16 QRSD: 86 T: 42 QT: 402 QTc: 462 Interpretive Statements SINUS RHYTHM LEFTWARD AXIS LEFT VENTRICULAR HYPERTROPHY ABNORMAL ECG RI6.02 No previous ECG available for comparison
== END 2020-12-09 15:37 | disposition home or self-care (01) ==
LOC: ER 11:42
DX: R11.0 Nausea (principal); R53.81 Other malaise; R42 Dizziness and giddiness; M19.90 Unspecified osteoarthritis, unspecified site; F31.9 Bipolar disorder, unspecified; I10 Essential (primary) hypertension; Z90.49 Acquired absence of other specified parts of digestive tract; Z98.890 Other specified postprocedural states; Z90.710 Acquired absence of both cervix and uterus; Z86.2 Personal history of diseases of the blood and blood-forming organs and certain disorders involving the immune mechanism; Z98.84 Bariatric surgery status; Z88.5 Allergy status to narcotic agent; Z91.040 Latex allergy status; Z88.6 Allergy status to analgesic agent
CPT/HCPCS: 36415; 74177; 80053; 81001; 84484; 85025; 93005; 96360; 96361; 99285; J7030; Q0169; Q9967

== ENCOUNTER → 2021-01-07 | Outpatient (CLI) | payer OTHER ==
[2020-12-09 14:27] VITALS: BP 153/87
[~2021-01-07] MED LIST changes: +BUPR150T21 PO; -BUPR150T7 PO
--- NOTE | 2021-01-07 13:49 | RAD ---
EXAM: Renal sonogram. HISTORY: Renal insufficiency. TECHNIQUE: Sonographic imaging the kidneys and bladder was performed. COMPARISON: None. FINDINGS: The right kidney measures 10.6 cm [id number]. The left kidney measures 7.6 cm pole-to-jarod e. The left kidney is partially obscured due to body habitus and motion. There is no solid or cystic renal lesion. There is no hydronephrosis. The bladder is unremarkable. The prevoid bladder volume is 118 cc. The aorta and inferior vena cava are partially obscured due to bowel gas and body habitus. IMPRESSION: Decreased left renal size. This is likely due to sonographic measurement technique, given a normal left renal size on the recent CT performed 12/09/2020. The recently described tiny hypodense lesion within the left kidney on the prior CT demonstrates no clear sonographic correlate. There is no acute sonographic finding. Electronically signed by: Sarah Shafer MD (01/07/2021 1:46 PM) [id number]
== END ==
LOC: US 13:00
PROVIDERS: ATTEND Internal Medicine Nephrology
DX: I12.9 Hypertensive chronic kidney disease with stage 1 through stage 4 chronic kidney disease, or unspecified chronic kidney disease (principal); N18.9 Chronic kidney disease, unspecified
CPT/HCPCS: 76770

== ENCOUNTER 2021-02-16 16:42 | Emergency (ER) | payer OTHER ==
[~2021-02-16] VITALS: Ht 175.3 cm; Wt 85.2 kg
--- NOTE | 2021-02-16 17:05 | PHYS DOC ---
Past History Past Medical History: Arthritis, Bipolar, Hypertension, Kidney Infection Additional Past Medical Histor: goiters; has been requiring iron infusions for her anemia Past Surgical History: Cholecystectomy, , Hysterectomy Additional Past Surgical Histo: foot surg; partial thyroidectomy, right knee surgery Smoking: Non-smoker Alcohol Use: None Drug Use: None General Adult EDM: Chief Complaint: LOWER EXT PAIN HPI: HPI: 55-year-old female presents with right knee pain. She was cleaning the house kneeling down and standing up multiple times couple days ago. Few hours later she started to have discomfort in the right knee. The pain has continued and today she has worse swelling and pain in the knee mostly in the posterior aspect. She is concerned about a blood clot. She has had meniscal surgery on this knee a number of years ago but no complications since. She denies any long travels in a plane train or car. Denies direct trauma. She is not a smoker. She is not on control. She denies shortness of breath, chest pain, fever, chills. Review of Systems: Review of Systems: Constitutional: Denies fever or chills Eyes: Denies change in visual acuity HENT: Denies nasal congestion or sore throat Respiratory: Denies cough or shortness of breath Cardiovascular: Denies chest pain or edema GI: Denies abdominal pain, nausea, vomiting, bloody stools or diarrhea : Denies dysuria Musculoskeletal: Right knee pain Integument: Denies rash Neurologic: Denies headache, focal weakness or sensory changes Endocrine: Denies polyuria or polydipsia Lymphatic: Denies swollen glands Psychiatric: Denies depression or anxiety Allergies: Allergies: Allergies Coded Allergies Type Severity Reaction Last Updated Verified codeine Allergy Intermediate rash 02/16/21 No latex Allergy Intermediate rash 02/16/21 No acetaminophen Allergy Unknown 02/16/21 Yes hydrocodone Allergy Unknown 02/16/21 Yes Physical Exam: PE: Constitutional: Well developed, well nourished, no acute distress, non-toxic appearance. [] HENT: Normocephalic, atraumatic, bilateral external ears normal, oropharynx moist, no oral exudates, nose normal. [] Eyes: PERRLA, EOMI, conjunctiva normal, no discharge. [] Neck: Normal range of motion, no tenderness, supple, no stridor. [] Cardiovascular:Heart rate regular rhythm, no murmur [] Lungs & Thorax: Bilateral breath sounds clear to auscultation [] Abdomen: Bowel sounds normal, soft, no tenderness, no masses, no pulsatile masses. [] Skin: Warm, dry, no erythema, no rash. [] Back: No tenderness, no CVA tenderness. [] Extremities: Pain with palpation of the posterior right knee. Negative anterior and posterior drawer. Negative varus and valgus stress. [] Neurologic: Alert and oriented X 3, normal motor function, normal sensory function, no focal deficits noted. [] Psychologic: Affect normal, judgement normal, mood normal. [] Current Patient Data: Vital Signs: Vital Signs Date Time Temp Pulse Resp B/P (MAP) Pulse Ox O2 Delivery O2 Flow Rate FiO2 02/16/21 16:52 97.9 100 18 140/80 (100) 100 Room Air EKG: EKG: [] Radiology/Procedures: Radiology/Procedures: [] Impressions: Right knee 3 views. HISTORY: Right knee pain and swelling 3 views were taken of the right knee. There is evidence of osteoarthritis with joint space narrowing and spurring in the medial joint compartment. There is a small joint effusion. There is no acute fracture. IMPRESSION: 1. Osteoarthritis right knee. Electronically signed by: Esteban Garcia MD (02/16/2021 5:24 PM) [facility] DICTATED AND SIGNED BY: ESTEBAN GARCIA MD DATE: 02/16/211722 CC: SARA ROSALES DO; SANDEE BUTLER MD ~MTH0 0 EXAM: Right lower extremity venous Doppler sonogram. HISTORY: Pain and swelling. TECHNIQUE: Patino scale and color Doppler sonographic evaluation of the right lower extremity veins with spectral waveform analysis was performed. FINDINGS: There is normal color flow, normal compressibility and there are normal spectral waveforms in the common femoral, superficial femoral, popliteal, posterior tibial and greater saphenous veins. IMPRESSION: No Doppler evidence of lower extremity deep venous thrombosis. Electronically signed by: Sarah Marshall MD (02/16/2021 5:24 PM) [id number] DICTATED AND SIGNED BY: SARAH MARSHALL MD DATE: 02/16/21 172 CC: SARA ROSALES DO; SANDEE BUTLER MD ~MTH0 0 Heart Score: C/O Chest Pain: No Risk Factors: Risk Factors: DM, Current or recent (<one month) smoker, HTN, HLP, family history of CAD, obesity. Risk Scores: Score 0 - 3: 2.5% MACE over next 6 weeks - Discharge Home Score 4 - 6: 20.3% MACE over next 6 weeks - Admit for Clinical Observation Score 7 - 10: 72.7% MACE over next 6 weeks - Early Invasive Strategies Course & Med Decision Making: Course & Med Decision Making Pertinent Labs and Imaging studies reviewed. (See chart for details) The patient's x-ray is negative for acute findings. There is osteoarthritis. The ultrasound is negative for DVT. See official reads for more details. I believe the patient just strained her knee. I cannot rule out a meniscal injury. I advised that if this does not improve within a week that she should seek further evaluation by orthopedics. She is stable for discharge at this time. [] Dragon Disclaimer: Dragon Disclaimer: This electronic medical record was generated, in whole or in part, using a voice recognition dictation system. Departure Departure: Impression: Primary Impression: Right knee pain Qualified Codes: M25.561 - Pain in right knee Disposition: HOME / SELF CARE / HOMELESS Condition: STABLE Referrals: SANDEE BUTLER MD (PCP) Patient Instructions: Knee Pain, [id number] SARA ROSALES DO Feb 16, 2021 17:04
--- NOTE | 2021-02-16 17:26 | RAD ---
Right knee 3 views. HISTORY: Right knee pain and swelling 3 views were taken of the right knee. There is evidence of osteoarthritis with joint space narrowing and spurring in the medial joint compartment. There is a small joint effusion. There is no acute frac ture. IMPRESSION: 1. Osteoarthritis right knee. Electronically signed by: Esteban Garcia MD (02/16/2021 5:24 PM) [facility] [place]
--- NOTE | 2021-02-16 17:27 | RAD ---
EXAM: Right lower extremity venous Doppler sonogram. HISTORY: Pain and swelling. TECHNIQUE: Patino scale and color Doppler sonographic evaluation of the right lower extremity veins wit h spectral waveform analysis was performed. FINDINGS: There is normal color flow, normal compressibility and there are normal spectral waveforms in the common femoral, superficial femoral, popliteal, posterior tibial and greater saphenous veins. IMPRESSION: No Doppler evidence of lower extremity deep venous thrombosis. Electronically signed by: Sarah Shafer MD (02/16/2021 5:24 PM) [id number]
[2021-02-16 17:43] VITALS: BP 126/88
== END 2021-02-16 17:44 | disposition home or self-care (01) ==
LOC: ER 16:42
DX: M25.561 Pain in right knee (principal); R22.41 Localized swelling, mass and lump, right lower limb; M19.90 Unspecified osteoarthritis, unspecified site; F31.9 Bipolar disorder, unspecified; I10 Essential (primary) hypertension; Z90.49 Acquired absence of other specified parts of digestive tract; Z98.890 Other specified postprocedural states; Z90.710 Acquired absence of both cervix and uterus; Z88.5 Allergy status to narcotic agent; Z91.040 Latex allergy status; Z88.8 Allergy status to other drugs, medicaments and biological substances
CPT/HCPCS: 73562; 93971; 99284

== ENCOUNTER 2021-07-12 19:19 | Emergency (ER) | payer OTHER ==
[~2021-07-12] VITALS: Ht 175.3 cm; Wt 85.2 kg
[2021-07-12 19:39] VITALS: BP 150/97
[2021-07-12] MEDS ORDERED: ONDANSETRON ODT 4 MG TAB.RAPDIS PO ONE (20:00)
--- NOTE | 2021-07-12 20:10 | PHYS DOC ---
Past History Past Medical History: Arthritis, Bipolar, Hypertension, Kidney Infection Additional Past Medical Histor: goiters; has been requiring iron infusions for her anemia Past Surgical History: No Surgical History, Cholecystectomy, , Hysterectomy Additional Past Surgical Histo: foot surg; partial thyroidectomy, right knee surgery Smoking: Non-smoker Alcohol Use: None Drug Use: None General Adult EDM: Chief Complaint: Covid exposure HPI: HPI: 55-year-old female presents due to Covid exposure. She has also been feeling fatigue and nausea for last couple of days. Today she is not unable to keep down any liquids or solids. She has had several episodes of vomiting and a little bit of diarrhea. She was fully vaccinated for COVID-19. Her second dose was in February. She is concerned this could be Covid due to her exposure. She would also like something to help her keep down liquids at home. She denies fever or chills. Review of Systems: Review of Systems: Constitutional: Denies fever or chills. Body aches, fatigue. Eyes: Denies change in visual acuity HENT: Denies nasal congestion or sore throat Respiratory: Denies cough or shortness of breath Cardiovascular: Denies chest pain or edema GI: Denies abdominal pain. Nausea, vomiting, diarrhea : Denies dysuria Musculoskeletal: Denies back pain or joint pain Integument: Denies rash Neurologic: Denies headache, focal weakness or sensory changes Endocrine: Denies polyuria or polydipsia Lymphatic: Denies swollen glands Psychiatric: Denies depression or anxiety Current Medications: Current Meds: Current Medications Medications (Trade) Dose Ordered Sig/Kristy Start Time Stop Time Status Last Admin Dose Admin Ondansetron HCl (Zofran Odt) 4 mg 1X ONCE 07/12/21 20:00 07/12/21 20:01 DC 07/12/21 20:02 4 MG Allergies: Allergies: Allergies Coded Allergies Type Severity Reaction Last Updated Verified codeine Allergy Intermediate rash 02/16/21 No latex Allergy Intermediate rash 02/16/21 No acetaminophen Allergy Unknown 02/16/21 Yes hydrocodone Allergy Unknown 02/16/21 Yes Physical Exam: PE: Constitutional: Well developed, well nourished, no acute distress, non-toxic appearance. [] HENT: Normocephalic, atraumatic, bilateral external ears normal, oropharynx moist, no oral exudates, nose normal. [] Eyes: PERRLA, EOMI, conjunctiva normal, no discharge. [] Neck: Normal range of motion, no tenderness, supple, no stridor. [] Cardiovascular: Heart rate regular rhythm, no murmur [] Lungs & Thorax: Bilateral breath sounds clear to auscultation [] Abdomen: Bowel sounds normal, soft, no tenderness, no masses, no pulsatile masses. [] Skin: Warm, dry, no erythema, no rash. [] Back: No tenderness, no CVA tenderness. [] Extremities: No tenderness, no cyanosis, no clubbing, ROM intact, no edema. [] Neurologic: Alert and oriented X 3, normal motor function, normal sensory function, no focal deficits noted. [] Psychologic: Affect normal, judgement normal, mood normal. [] Current Patient Data: Vital Signs: Vital Signs Date Time Temp Pulse Resp B/P (MAP) Pulse Ox O2 Delivery O2 Flow Rate FiO2 07/12/21 19:39 98.1 85 16 150/97 (114) 98 Room Air EKG: EKG: [] Radiology/Procedures: Radiology/Procedures: [] Impressions: XR CHEST 1V INDICATION: Reason: SOB / Spl. Instructions: / History: . COMPARISON STUDY: 11/20/2020. FINDINGS: Right IJ Port-A-Cath Lungs: Normal lung volume. No pulmonary mass or consolidation. The tracheobronchial tree and hilar structures are normal. Pleura: No pleural effusion or pneumothorax. Heart and Mediastinum: Cardiomegaly. Tortuosity of the thoracic aorta. IMPRESSION: No consolidation. Electronically signed by: Jonathan Marte MD (07/12/2021 9:24 PM) [facility] DICTATED AND SIGNED BY: JONATHAN MARTE MD DATE: 07/12/212121 CC: SARA ROSALES DO; SANDEE BUTLER MD ~MTH0 0 Heart Score: C/O Chest Pain: N/A Risk Factors: Risk Factors: DM, Current or recent (<one month) smoker, HTN, HLP, family history of CAD, obesity. Risk Scores: Score 0 - 3: 2.5% MACE over next 6 weeks - Discharge Home Score 4 - 6: 20.3% MACE over next 6 weeks - Admit for Clinical Observation Score 7 - 10: 72.7% MACE over next 6 weeks - Early Invasive Strategies Course & Med Decision Making: Course & Med Decision Making Pertinent Labs and Imaging studies reviewed. (See chart for details) The patient's urinalysis is negative for infection. Her chest x-ray is unremarkable. Her Covid test is pending. We gave her Zofran and it has been effective. She has passed p.o. challenge. She would like to go home. She is stable for discharge at this time. [] Jose R Disclaimer: Jose R Disclaimer: This electronic medical record was generated, in whole or in part, using a voice recognition dictation system. Departure Departure: Impression: Primary Impression: Suspected 2019 novel coronavirus infection Additional Impression: Vomiting Qualified Codes: R11.2 - Nausea with vomiting, unspecified Disposition: 01 HOME / SELF CARE / HOMELESS Condition: STABLE Referrals: SANDEE BUTLER MD (PCP) Patient Instructions: Nausea and Vomiting, [id number] Additional Instructions: You have been tested for or diagnosed with COVID-19. It is an infection caused by a new type of coronavirus. COVID-19 will cause cold-like or mild flu symptoms in most. It can cause more severe symptoms like problems breathing in some. There is no treatment for COVID-19. The body will clear the infection over time. Self-care will help to ease discomfort. Steps to Take: Self-Care Rest as needed. Healthy habits may help you feel better. Steps include: Choose healthy foods including fruits and vegetables. Drink water throughout the day. Get plenty of sleep each night. If you smoke, try to quit. It may ease breathing. Avoid alcohol. Keep Others Healthy The virus can spread to others. Droplets are released every time you sneeze or cough. The droplets can get into the mouth, nose, or eyes of people near you and lead to infection. To lower the chances of spreading COVID-19 to others: Stay at home until your doctor has said it is safe to leave. If you tested positive this will mean staying isolated until both of the following are true: At least 7 days have passed since the start of illness. You are free of fever for at least 72 hours without the use of medicine. During this time: - Avoid public areas, events, or transportation. Do not return to work or school until your doctor has said it is safe to do so. - Call ahead if you need to go to a medical center. Let them know you may have COVID-19. It will help them guide you where to go. They may also ask you to wear a facemask when you come to the office. - If you call for emergency medical services, let them know you may have COVID- 19. While at home: - Try to avoid close contact with others. Stay about 6 feet away. - If possible, spend most of your time in a separate room from others. - Use a face mask if you will be in close contact with others such as sharing a room or vehicle. - Have someone wipe down common surfaces in the home. Use household manager operations research every day on areas like doorknobs, counters, or sinks. - Cough or sneeze into a tissue. Throw the tissue away right after use. If a tissue is not available, cough or sneeze into your elbow. - Wash your hands often. Wash them after sneezing or coughing. Use soap and water and wash for at least 20 seconds. Alcohol based hand service line bus cleaner can be used if soap and water is not available. - Do not prepare food for others. Avoid sharing personal items like forks, spoons, or toothbrushes. - Avoid close contact with pets while you are sick. There is no evidence of the virus passing to pets. This is a safety step until more is known about this virus. Isolation can be frustrating. Social interaction can help. Keep in touch with friends and family through phone and tech options. You can still interact with others in your home, just keep a safe distance of about 6 feet. Follow-up: Your doctors office will check in with you to see if there are any changes in your health. You may be asked to keep track of symptoms to share with them. They will also let you know when you are clear to be in public again. Problems to Look Out For: Contact your doctor if your recovery is not going as you expect. Get emergency care if you have problems such as: - Trouble breathing - Nonstop chest pain or pressure - Changes in awareness, confusion, or problems waking - Lips or face have bluish color - Worsening of symptoms If you think you have an emergency, call for emergency medical services right away. As taken from [employer] Ondansetron (ONDANSETRON ODT) 4 Mg Tab.rapdis 1 TAB PO PRN Q6-8HRS PRN for VOMITING, #16 TAB Prov: SARA ROSALES DO 07/12/21 SARA ROSALES DO Jul 12, 2021 20:10
[2021-07-12 20:52] LABS: COLOR,URINE YELLOW
[2021-07-12 20:53] LABS: BACTERIA,URINE 0 /HPF (0-FEW); BILIRUBIN,URINE SMALL (NEG); CLARITY,URINE CLOUDY; GLUCOSE,URINE NEG (NEG); NITRITE,URINE NEG (NEG); RBC,URINE 0 /HPF (0-2); WBC,URINE 0 /HPF (0-4)
--- NOTE | 2021-07-12 21:26 | RAD ---
XR CHEST 1V INDICATION: Reason: SOB / Spl. Instructions: / History: . COMPARISON STUDY: 11/20/2020. FINDINGS: Right IJ Port-A-Cath Lungs: Normal lung volume. No pulmonary mass or consolidation. The tracheobronchial tree and hilar st ructures are normal. Pleura: No pleural effusion or pneumothorax. Heart and Mediastinum: Cardiomegaly. Tortuosity of the thoracic aorta. IMPRESSION: No consolidation. Electronically signed by: Rene Yarbrough MD (07/12/2021 9:24 PM) [facility]
[2021-07-12] MEDS ORDERED: ONDA4TAB12 PO (21:35)
--- NOTE | 2021-07-13 12:26 | NUR ---
IP: Informed pt of negative covid test. Pt verbalized understanding.
== END 2021-07-12 21:38 | disposition home or self-care (01) ==
LOC: ER 19:19
DX: R53.83 Other fatigue (principal); R11.2 Nausea with vomiting, unspecified; R19.7 Diarrhea, unspecified; M19.90 Unspecified osteoarthritis, unspecified site; F31.9 Bipolar disorder, unspecified; I10 Essential (primary) hypertension; Z20.822 Contact with and (suspected) exposure to COVID-19; Z90.49 Acquired absence of other specified parts of digestive tract; Z88.5 Allergy status to narcotic agent; Z88.8 Allergy status to other drugs, medicaments and biological substances
CPT/HCPCS: 71045; 81001; 99284; Q0162; U0003

== ENCOUNTER 2021-07-25 11:42 | Emergency (ER) | payer OTHER ==
[~2021-07-25] VITALS: Ht 175.3 cm; Wt 100.0 kg
[2021-07-25 11:52] VITALS: BP 160/98
[2021-07-25] MEDS ORDERED: DEXAMETHASONE 4 MG TABLET PO ONE (12:30)
[2021-07-25] MEDS ORDERED: ALBUTEROL SULFATE 8GM INHALER. INH ONE (12:45)
--- NOTE | 2021-07-25 12:53 | PHYS DOC ---
Past History Past Medical History: Arthritis, Bipolar, Hypertension, Kidney Infection Additional Past Medical Histor: goiters; iron infusions for her anemia, rheumatoid arthritis (NENA COPE APRN) Past Surgical History: No Surgical History, Cholecystectomy, , Hysterectomy Additional Past Surgical Histo: foot surg; partial thyroidectomy, right knee surgery (NENA COPE APRN) Smoking: Non-smoker Alcohol Use: None Drug Use: None (NENA COPE APRN) General Adult EDM: Chief Complaint: SHORTNESS OF BREATH HPI: HPI: Patient is a 55-year-old female who presents with cough, fever. Patient states she been taking care of her grandson who also had Covid. Patient is hemodynamically stable. Denies nausea/vomiting/diarrhea, shortness of breath. Patient states she has been taking Aleve for her fever. (NENA COPE APRN) Review of Systems: Review of Systems: Constitutional: Denies fever or chills Eyes: Denies change in visual acuity HENT: Reports nasal congestion Respiratory: Reports cough. Denies shortness of breath. Cardiovascular: Denies chest pain or edema GI: Denies abdominal pain, nausea, vomiting, bloody stools or diarrhea : Denies dysuria Musculoskeletal: Denies back pain or joint pain Integument: Denies rash Neurologic: Denies headache, focal weakness or sensory changes Endocrine: Denies polyuria or polydipsia Lymphatic: Denies swollen glands Psychiatric: Denies depression or anxiety (NENA COPE APRN) Current Medications: Current Meds: Current Medications Medications (Trade) Dose Ordered Sig/Kristy Start Time Stop Time Status Last Admin Dose Admin Albuterol Sulfate (Ventolin Hfa Inhaler) 1 puff 1X ONCE 07/25/21 12:45 07/25/21 12:46 UNV Dexamethasone (Decadron) 10 mg 1X ONCE 07/25/21 12:30 07/25/21 12:31 DC 07/25/21 12:32 10 MG (NENA COPE APRN) Allergies: Allergies: Allergies Coded Allergies Type Severity Reaction Last Updated Verified codeine Allergy Intermediate rash 02/16/21 No latex Allergy Intermediate rash 02/16/21 No acetaminophen Allergy Unknown 02/16/21 Yes hydrocodone Allergy Unknown 02/16/21 Yes (NENA COPE APRN) Physical Exam: PE: Constitutional: Well developed, well nourished, no acute distress, non-toxic appearance. [] HENT: Normocephalic, atraumatic, bilateral external ears normal, oropharynx moist, no oral exudates, nose normal. [] Eyes: PERRLA, EOMI, conjunctiva normal, no discharge. [] Neck: Normal range of motion, no tenderness, supple, no stridor. [] Cardiovascular:Heart rate regular rhythm, no murmur [] Lungs & Thorax: Wheezing heard throughout. Abdomen: Bowel sounds normal, soft, no tenderness, no masses, no pulsatile masses. [] Skin: Warm, dry, no erythema, no rash. [] Back: No tenderness, no CVA tenderness. [] Extremities: No tenderness, no cyanosis, no clubbing, ROM intact, no edema. [] Neurologic: Alert and oriented X 3, normal motor function, normal sensory function, no focal deficits noted. [] Psychologic: Affect normal, judgement normal, mood normal. [] (NENA COPE APRN) Current Patient Data: Vital Signs: Vital Signs Date Time Temp Pulse Resp B/P (MAP) Pulse Ox O2 Delivery O2 Flow Rate FiO2 07/25/21 11:52 98.1 88 20 160/98 (118) 96 Room Air (NENA COPE APRN) Labs: Laboratory Tests Test 07/25/21 12:30 Coronavirus (COVID-19)(PCR) Not detected Influenza Type A (Rapid) Negative Influenza Type B (Rapid) Negative SARS-CoV-2 Antigen (Rapid) Negative Current Medications Medications (Trade) Dose Ordered Sig/Kristy Route PRN Reason Start Time Stop Time Status Last Admin Dose Admin Dexamethasone (Decadron) 10 mg 1X ONCE PO 07/25/21 12:30 07/25/21 12:31 DC 07/25/21 12:32 Albuterol Sulfate (Ventolin Hfa Inhaler) 1 puff 1X ONCE INH 07/25/21 12:45 07/25/21 12:49 DC 07/25/21 13:44 (SARA ROSALES DO) EKG: EKG: [] (NENA COPE APRN) Radiology/Procedures: Radiology/Procedures: []XR CHEST 1V 07/25/2021 12:30 PM INDICATION: Cough COMPARISON: 07/12/2021 TECHNIQUE: Portable frontal view of the chest is provided. FINDINGS: The cardiomediastinal silhouette is within normal limits. Right chest wall infusion port catheter is in similar position. No new airspace consolidation. Mild chronic interstitial changes. There are no significant pleural effusions. There is no pulmonary vascular congestion. No pneumothorax. No suspicious osseous abnormality. IMPRESSION: There is no acute cardiopulmonary process. Electronically signed by: Sharonda Cason MD (07/25/2021 1:25 PM) [facility] (NENA COPE APRN) Heart Score: C/O Chest Pain: No Risk Factors: Risk Factors: DM, Current or recent (<one month) smoker, HTN, HLP, family history of CAD, obesity. Risk Scores: Score 0 - 3: 2.5% MACE over next 6 weeks - Discharge Home Score 4 - 6: 20.3% MACE over next 6 weeks - Admit for Clinical Observation Score 7 - 10: 72.7% MACE over next 6 weeks - Early Invasive Strategies (NENA COPE APRN) Course & Med Decision Making: Course & Med Decision Making Pertinent Labs and Imaging studies reviewed. (See chart for details) [] 55 female presents with cough, fever. Patient is recently been taking care of her grandson who was positive for Covid. Lung sounds coarse and wheezing heard throughout. Patient given dexamethasone. Chest x-ray ordered to rule out pneumonia. Albuterol inhaler given to patient to help with breathing. Chest x-ray is unremarkable. Advised patient to continue taking Motrin and Tylenol at home. Patient was given albuterol inhaler to take home. Follow-up with PCP for further management. Patient given return precautions. Patient is hemodynamically stable upon disposition. Patient states that she understands discharge instructions. (NENA COPE APRN) Dragon Disclaimer: Dragon Disclaimer: This electronic medical record was generated, in whole or in part, using a voice recognition dictation system. (NENA COPE APRN) Attending Co-Sign The patient was seen and interviewed as well as examined at the bedside. The chart was reviewed. The case was discussed. Agree with the plan of care. (SARA ROSALES DO) Departure Departure: Impression: Primary Impression: Person under investigation for COVID-19 Additional Impression: Cough Disposition: HOME / SELF CARE / HOMELESS Condition: STABLE Referrals: SANDEE BUTLER MD (PCP) Patient Instructions: Cough, Adult, [id number] Additional Instructions: Chest x-ray was negative. Continue using ibuprofen and Tylenol at home. You were also given a inhaler to use to help with shortness of breath and steroids while in the ER. Please follow-up with your PCP. Return emergency room for worsening symptoms or concerns peer EMERGENCY DEPARTMENT GENERAL DISCHARGE INSTRUCTIONS Thank you for coming to [facility] (ED) today and trusting us with you care. We trust that you had a positivie experience in our Emergency Department. If you wish to speak to the department management, you may call the director at [phone]. YOUR FOLLOW UP INSTRUCTIONS ARE FOLLOWS: 1. Do you have a private Doctor? If you do not have a private doctor, please ask for a resource list of physicians or clinics that may be able to assist you with foll ow up care. 2. The Emergency Physician has interpreted your x-rays. The X-Ray specialist will also review them. If there is a change in the findings, you will be notified in 48 hours when at all possible. 3. A lab test or culture has been done, your results will be reviewed and you will be notified if you need a change in treatment. ADDITIONAL INSTRUCTIONS AND INFORMATION: 1. Your care today has been supervised by a physician who is specially trained in emergency care. Many problems require more than one evaluation for a complete diagnosis and treatment. We recommend that you schedule your follow up appointment as re commended to ensure complete treatment of you illness or injury. If you are unable to obtain follow up care and continue to have a problem, or if your condition worsens, we recommend that you return to the ED. 2. We are not able to safely determine your condition over the phone nor are we able to give sound medical advice over the phone. For these safety reasons, if you call for medical advice we will ask you to come to the ED for further evaluation. 3. If you have any questions regarding these discharge instructions please call the ED at [phone]. SAFETY INFORMATION: In the interest of safety, wellness, and injury prevention; we encourage you to wear your sealbelt, if you smoke; quite smoking, and we encourage family to use a protective helmet for bicycling and other sporting events that present an increased risk for head injury. IF YOUR SYMPTOMS WORSEN OR NEW SYMPTOMS DEVELOP, OR YOU HAVE CONCERNS ABOUT YOUR CONDITION; OR IF YOUR CONDITION WORSENS WHILE YOU ARE WAITING FOR YOUR FOLLOW UP APPOINTMENT; EITHER CONTACT YOUR PRIMARY CARE DOCTOR, THE PHYSICIAN WHOSE NAME AND NUMBER YOU WERE GIVEN, OR RETURN TO THE ED IMMEDIATELY. NENA COPE APRN Jul 25, 2021 12:53 SARA ROSALES DO Jul 26, 2021 11:13
--- NOTE | 2021-07-25 13:27 | RAD ---
XR CHEST 1V 07/25/2021 12:30 PM INDICATION: Cough COMPARISON: 07/12/2021 TECHNIQUE: Portable frontal view of the chest is provided. FINDINGS: The cardiomediastinal silhouette is within normal limits. Right chest wall infusion port catheter is in similar position. No new airspace consolidation. Mild chronic interstitial changes. There are no significant pleural effusions. There is no pulmonary vascular congestion. No pneumothora x. No suspicious osseous abnormality. IMPRESSION: There is no acute cardiopulmonary process. Electronically signed by: Sharonda Cason MD (07/25/2021 1:25 PM) [facility]
[2021-07-25 14:06] LABS: INFLUENZA A PATIENT NEGATIVE (NEGATIVE); INFLUENZA B PATIENT NEGATIVE (NEGATIVE)
--- NOTE | 2021-07-26 07:47 | NUR ---
IP: Patient notified of negative COVID19 test result. Verbalized understanding.
== END 2021-07-25 14:13 | disposition home or self-care (01) ==
LOC: ER 11:42
DX: R05 Cough (principal); R50.9 Fever, unspecified; R09.81 Nasal congestion; Z20.822 Contact with and (suspected) exposure to COVID-19; M19.90 Unspecified osteoarthritis, unspecified site; F31.9 Bipolar disorder, unspecified; I10 Essential (primary) hypertension; Z88.5 Allergy status to narcotic agent; Z91.040 Latex allergy status; Z88.8 Allergy status to other drugs, medicaments and biological substances
CPT/HCPCS: 71045; 87426; 87804; 94640; 99284; C9803; J8540; U0003; 94664

== ENCOUNTER 2021-11-10 15:39 | Emergency (ER) | payer OTHER ==
[~2021-11-10] VITALS: Ht 175.3 cm; Wt 100.0 kg
--- NOTE | 2021-11-10 20:58 | PHYS DOC ---
Past History Past Medical History: Arthritis, Bipolar, Hypertension, Kidney Infection Additional Past Medical Histor: goiters; iron infusions for her anemia, rheumatoid arthritis Past Surgical History: No Surgical History, Cholecystectomy, , Hysterectomy Additional Past Surgical Histo: foot surg; partial thyroidectomy, right knee surgery Smoking: Non-smoker Alcohol Use: None Drug Use: None General Adult EDM: Chief Complaint: BACK INJURY HPI: HPI: " I got this bad back pain and abdomen pain.. " - Murphy 1# Patient is a 56 year old Female who presents with above hx and complaints of back pain. Pt has multiple complaints, at various times describe did locations. No Trauma, Fever, Chills, IV drug use, Travel, specific ill contacts. No hx Immunosuppression, denies any drug use. Has hx,. Sciatica, Arthritis,Bipolar, HTN, UTI , GERD, . Follow with Dr. Butler Review of Systems: Review of Systems: Constitutional: Denies fever or chills Eyes: Denies change in visual acuity HENT: Denies nasal congestion or sore throat Respiratory: Denies cough or shortness of breath Cardiovascular: Denies chest pain or edema GI: Denies abdominal pain, nausea, vomiting, bloody stools or diarrhea : Denies dysuria Musculoskeletal: Denies back pain or joint pain Integument: Denies rash Neurologic: Denies headache, focal weakness or sensory changes Endocrine: Denies polyuria or polydipsia Lymphatic: Denies swollen glands Psychiatric: Denies depression or anxiety Family History: Family History: Non-Contrib. Current Medications: Current Meds: See [facility] meds. Allergies: Allergies: Allergies Coded Allergies Type Severity Reaction Last Updated Verified codeine Allergy Intermediate rash 02/16/21 No latex Allergy Intermediate rash 02/16/21 No acetaminophen Allergy Unknown 02/16/21 Yes hydrocodone Allergy Unknown 02/16/21 Yes Physical Exam: PE: Constitutional: no acute distress, non-toxic appearance. [] HENT: Normocephalic, atraumatic, bilateral external ears normal, oropharynx moist, no oral exudates, nose normal. [] Eyes: PERRLA, EOMI, conjunctiva normal, no discharge. [] Neck: Normal range of motion, no tenderness, supple, no stridor. [] Cardiovascular:Heart rate regular rhythm, no murmur [] Lungs & Thorax: Bilateral breath sounds= at apex, scatter wheezes on auscultation [] Abdomen: Bowel sounds normal, soft, mild up abd. tenderness, no masses, no pulsatile masses. Dist. Skin: Warm, dry, no erythema, no rash. [] Back: L/S tenderness, no CVA tenderness. [] Extremities: No tenderness, no cyanosis, no clubbing, ROM intact, no edema. [] Neurologic: Alert and oriented X 3, normal motor function, normal sensory function, no focal deficits noted. DTR + patella Psychologic: Affect anxious., judgement normal, mood normal. [] Current Patient Data: Vital Signs: Vital Signs Date Time Temp Pulse Resp B/P (MAP) Pulse Ox O2 Delivery O2 Flow Rate FiO2 11/10/21 16:54 98.5 88 16 128/96 (107) 97 Room Air EKG: EKG: [] Radiology/Procedures: Radiology/Procedures: [][address] [id number] IMAGING REPORT Signed PATIENT: BEN BILLINGS AACCOUNT: [id number] : 1965 LOCATION: ER AGE: 56 SEX: F EXAM STATUS: REG ER ORD. PHYSICIAN: MITCHEL SOSA MD REASON: Bilateral flank and abdominal pain PROCEDURE: CT ABDOMEN PELVIS WO CONTRAST CT ABDOMEN+PELVIS WO History: Reason: Bilateral flank and abdominal pain / Spl. Instructions: / History: Technique: Noncontrast examination of the abdomen and pelvis. Coronal and sagittal reconstructions were performed. Exposure: One or more of the following individualized dose reduction techniques were utilized for this examination: 1. Automated exposure control 2. Adjustment of the mA and/or kV according to patient size 3. Use of iterative reconstruction technique. Comparison: December 09, 2020 Findings: Lower chest: Scattered linear atelectasis bilaterally. Abdomen and pelvis: The liver, spleen, adrenal glands, and pancreas are unremarkable. Prior cholecystectomy. Postoperative changes gastric bypass. No renal, ureteral or urinary bladder calculus. No hydronephrosis. Normal appendix. No evidence of bowel obstruction. No pathologic lymphadenopathy. No ascites. Dystrophic calcification within the left gluteal region with infiltration, similar compared to prior. Prior hysterectomy. Mild atheromatous plaque throughout the nonaneurysmal abdominal aorta and branch vessels. Bones: Grade 1 anterolisthesis L4 on L5. Multilevel lumbar spondylosis. Impression: 1. No acute abdominal or pelvic pathology. No obstructing urolithiasis. Electronically signed by: Timo Paiz DO (11/10/2021 11:29 PM) [facility] DICTATED AND SIGNED BY: TIMO PAIZ DO DATE: 11/10/212321 CC: MITCHEL SOSA MD; SANDEE BUTLER MD ~MTH0 0 [facility] [address] [place] [id number] IMAGING REPORT Signed PATIENT: BEN BILLINGS AACCOUNT: [id number] : 1965 LOCATION: ER AGE: 56 SEX: F EXAM STATUS: REG ER ORD. PHYSICIAN: MITCHEL SOSA MD REASON: Bilateral flank and abdominal pain PROCEDURE: ACUTE ABDOMEN SERIES Three-view acute abdominal series. HISTORY: Bilateral flank and abdominal pain 3 views were taken for an acute abdominal series. There is a Port-A-Cath on the right in good position. Heart is normal in size. There is linear scarring near the left costophrenic angle. There are no other acute infiltrates. There is no free air on the upright view the abdomen. There is moderate stool in the right colon. The patient's had a cholecystectomy. There is distention of the colon p ossibly an ileus. There is no small bowel obstruction. IMPRESSION: 1. No acute infiltrates. 2. Mild distention of the colon. 3. No small bowel obstruction. Electronically signed by: Esteban Garcia MD (11/10/2021 11:17 PM) [facility] DICTATED AND SIGNED BY: ESTEBAN GARCIA MD DATE: 11/10/21 2315 CC: MITCHEL SOSA MD; SANDEE BUTLER MD ~MTH0 0 Heart Score: C/O Chest Pain: N/A Risk Factors: Risk Factors: DM, Current or recent (<one month) smoker, HTN, HLP, family history of CAD, obesity. Risk Scores: Score 0 - 3: 2.5% MACE over next 6 weeks - Discharge Home Score 4 - 6: 20.3% MACE over next 6 weeks - Admit for Clinical Observation Score 7 - 10: 72.7% MACE over next 6 weeks - Early Invasive Strategies Course & Med Decision Making: Course & Med Decision Making Pertinent Labs and Imaging studies reviewed. (See chart for details) Pt. requesting narcotic meds. Pt. to followup with primary. Meds as per d/c instruction Impression: 1. Sciatica 2. DJD 3. GERD 4. Possible Narcotic seeking behaviors 5. Drug Screen + Benzo and Amphetamine Dictation loss # [id number] [] Dragon Disclaimer: Dragon Disclaimer: This electronic medical record was generated, in whole or in part, using a voice recognition dictation system. Departure Departure: Referrals: SANDEE BUTLER MD (PCP) Jose R Disclaimer This chart was dictated in whole or in part using Voice Recognition software in a busy, high-work load, and often noisy Emergency Department environment. It may contain unintended and wholly unrecognized errors or omissions. Dragon Disclaimer This chart was dictated in whole or in part using Voice Recognition software in a busy, high-work load, and often noisy Emergency Department environment. It may contain unintended and wholly unrecognized errors or omissions. MITCHEL SSOA MD Nov 10, 2021 20:58
[2021-11-10 21:38] LABS: BARBITURATES NEG (NEG); BENZODIAZEPINES POS (NEG); CANNABINOIDS NEG (NEG); COCAINE NEG (NEG); METHADONE NEG (NEG); OPIATES NEG (NEG); PHENCYCLIDINE NEG (NEG)
[2021-11-10 21:40] LABS: AMPHETAMINE/METHAMPHETAMINE POS (NEG)
[2021-11-10 21:58] LABS: BACTERIA,URINE FEW /HPF (0-FEW); BILIRUBIN,URINE SMALL (NEG); CLARITY,URINE CLEAR; COLOR,URINE YELLOW; GLUCOSE,URINE NEG (NEG); NITRITE,URINE NEG (NEG); SQUAMOUS EPITHELIAL CELL,UR OCC /LPF; UROBILINOGEN,URINE 0.2 mg/dL (0.2 mg/dL)
[2021-11-10] MEDS ORDERED: IV RINGERS SOLUTION,LACTATED 1,000 ML IV SCH (22:30)
[2021-11-10] MEDS ORDERED: ONDANSETRON PF 4 MG/2 ML VIAL. IVP ONE (22:30)
[2021-11-10] MEDS ORDERED: KETOROLAC 30 MG/ML VIAL. IVP ONE (22:30)
[2021-11-10] MEDS ORDERED: FAMOTIDINE 20 MG/2 ML VIAL IVP ONE (22:30)
--- NOTE | 2021-11-10 23:19 | RAD ---
Three-view acute abdominal series. HISTORY: Bilateral flank and abdominal pain 3 views were taken for an acute abdominal series. There is a Port-A-Cath on the right in good positio n. Heart is normal in size. There is linear scarring near the left costophrenic angle. There are no o ther acute infiltrates. There is no free air on the upright view the abdomen. There is moderate stool in the right colon. The patient's had a cholecystectomy. There is distention of the colon possibly a n ileus. There is no small bowel obstruction. IMPRESSION: 1. No acute infiltrates. 2. Mild distention of the colon. 3. No small bowel obstruction. Electronically signed by: Esteban Garcia MD (11/10/2021 11:17 PM) [facility]
--- NOTE | 2021-11-10 23:31 | RAD ---
CT ABDOMEN+PELVIS WO History: Reason: Bilateral flank and abdominal pain / Spl. Instructions: / History: Technique: Noncontrast examination of the abdomen and pelvis. Coronal and sagittal reconstructions we re performed. Exposure: One or more of the following individualized dose reduction techniques were utilized for thi s examination: 1. Automated exposure control 2. Adjustment of the mA and/or kV according to patient size 3. Use of iterative reconstruction technique. Comparison: December 09, 2020 Findings: Lower chest: Scattered linear atelectasis bilaterally. Abdomen and pelvis: The liver, spleen, adrenal glands, and pancreas are unremarkable. Prior cholecyst ectomy. Postoperative changes gastric bypass. No renal, ureteral or urinary bladder calculus. No hydronephrosis. Normal appendix. No evidence of bowel obstruction. No pathologic lymphadenopathy. No ascites. Dystrop hic calcification within the left gluteal region with infiltration, similar compared to prior. Prior hysterectomy. Mild atheromatous plaque throughout the nonaneurysmal abdominal aorta and branch vessel s. Bones: Grade 1 anterolisthesis L4 on L5. Multilevel lumbar spondylosis. Impression: 1. No acute abdominal or pelvic pathology. No obstructing urolithiasis. Electronically signed by: Timo Paiz DO (11/10/2021 11:29 PM) [facility]
[2021-11-11 01:02] LABS: CALCIUM 8.5 mg/dL (8.5-10.1); CREATININE 1.3 mg/dL (0.6-1.0); GFR 51.6; POTASSIUM 3.5 mmol/L (3.5-5.1)
[2021-11-11 01:28] LABS: BASO # 0.1 x10^3/uL (0.0-0.2); BASO % 1 % (0-3); EOS # 0.1 x10^3/uL (0.0-0.7); EOS % 2 % (0-3); HEMATOCRIT 39.4 % (36.0-47.0); HEMOGLOBIN 12.7 g/dL (12.0-15.5); LYMPH # 1.7 x10^3/uL (1.0-4.8); LYMPH % 37 % (24-48); MEAN CORPUSCULAR HEMOGLOBIN 29 pg (25-35); MEAN CORPUSCULAR HGB CONC 32 g/dL (31-37); MEAN CORPUSCULAR VOLUME 91 fL (79-100); MONO # 0.3 x10^3/uL (0.0-1.1); MONO % 7 % (0-9); NEUT # 2.5 x10^3uL (1.8-7.7); NEUT % 53 % (31-73); PLATELET COUNT 184 x10^3/uL (140-400); RED BLOOD COUNT 4.33 x10^6/uL (3.50-5.40); WHITE BLOOD COUNT 4.8 x10^3/uL (4.0-11.0)
[2021-11-11] MEDS ORDERED: MAGNESIUM HYDROXIDE 2,400 MG/30 ML ORAL.SUSP. PO ONE (04:00)
[2021-11-11] MEDS ORDERED: HEPARIN PF 500 UNIT/5 ML DISP.SYRIN. IVP ONE (04:00)
[2021-11-11 04:55] VITALS: BP 152/93
[2021-11-11] MEDS ORDERED: oxyCODONE/APAP 5/325 1 TAB TABLET PO ONE (05:00)
== END 2021-11-11 03:45 | disposition home or self-care (01) ==
LOC: ER 15:39
DX: M54.40 Lumbago with sciatica, unspecified side (principal); M47.817 Spondylosis without myelopathy or radiculopathy, lumbosacral region; K21.9 Gastro-esophageal reflux disease without esophagitis; F31.9 Bipolar disorder, unspecified; I10 Essential (primary) hypertension; M06.9 Rheumatoid arthritis, unspecified; Z87.440 Personal history of urinary (tract) infections; Z88.5 Allergy status to narcotic agent; Z91.040 Latex allergy status; Z88.8 Allergy status to other drugs, medicaments and biological substances
CPT/HCPCS: 36415; 74022; 74176; 80048; 80307; 81001; 82150; 83690; 85025; 96361; 96374; 96375; 99285; J1885; J2405; J3490; J7120

== ENCOUNTER 2021-12-18 17:38 | Emergency (ER) | payer OTHER ==
[~2021-12-18] VITALS: Ht 175.3 cm; Wt 97.7 kg
--- NOTE | 2021-12-18 18:00 | PHYS DOC ---
Past History Past Medical History: Arthritis, Bipolar, Hypertension, Kidney Infection, UTI Additional Past Medical Histor: goiters; iron infusions for her anemia, rheumatoid arthritis Past Surgical History: No Surgical History, Cholecystectomy, , Hysterectomy Additional Past Surgical Histo: foot surg; partial thyroidectomy, right knee surgery Smoking: Non-smoker Alcohol Use: None Drug Use: None General Adult EDM: Chief Complaint: NAUSEA/VOMITING/DIARRHEA HPI: HPI: ".. I ve had my covid.. shots.. but I still tested + positive on at [facility]....I hurt all over.. Nausea.. vomiting.. I think I got it from my ..." Patient is a 56 old female who presents with above hx and complaints fever, chills, myalgia, athralgia and malaise. Patient reportedly completed COVID vaccinations and August last year. Update vaccination she is unsure if she has had flu vaccination. Patient stated she tested positive Monday at [facility] for Covid. Patient denies any intake of bad food. No recent travel. No specific ill contacts. Patient does have a history of hypothyroidism, hypertension, osteoarthritis, bipolar disorder, partial seizure disorder, allergy to latex, and codeine. Patient had thyroidectomy due to a malignant tumor. She has had arthroscopic knee for meniscal tear cholecystectomy and EGD and colonoscopy. Patient has been assigned to the at [facility]. He has not had any recent travel but he has recently had symptoms of Covid. Review of Systems: Review of Systems: Constitutional: Complains of fever or chills Eyes: Denies change in visual acuity HENT: Complains of nasal congestion or sore throat Respiratory: Complains of cough and shortness of breath Cardiovascular: Complains of chest pain or edema GI: Complains of abdominal pain, nausea, vomiting,. Denies bloody stools or diarrhea : Denies dysuria Musculoskeletal: Complains of generalized myalgia and arthralgia Integument: Denies rash Neurologic: Denies headache, focal weakness or sensory changes Endocrine: Denies polyuria or polydipsia Lymphatic: Denies swollen glands Psychiatric: Denies depression or anxiety Family History: Family History: Has been ill with Covid symptoms Current Medications: Current Meds: See nursing for home meds Allergies: Allergies: Allergies Coded Allergies Type Severity Reaction Last Updated Verified codeine Allergy Intermediate rash 02/16/21 No latex Allergy Intermediate rash 02/16/21 No acetaminophen Allergy Unknown 02/16/21 Yes hydrocodone Allergy Unknown 02/16/21 Yes Physical Exam: PE: Constitutional: Moderate acute distress, non-toxic appearance. [] HENT: Normocephalic, atraumatic, bilateral external ears normal, oropharynx moist, no oral exudates, nose swollen turbinates and clear rhinorrhea Eyes: PERRLA, EOMI, conjunctiva normal, no discharge. [] Neck: Normal range of motion, no tenderness, supple, no stridor. Surgical thyroidectomy scar Cardiovascular: Tachycardia heart rate regular rhythm, no murmur [] Lungs & Thorax: Bilateral breath sounds equal apex with scattered wheezes auscultation [] Abdomen: Bowel sounds normal, soft, no tenderness, no masses, no pulsatile masses. Old surgery scars. Skin: Warm, dry, no erythema, no rash. [] Back: Generalized tenderness, no CVA tenderness. [] Extremities: Generalized tenderness, no cyanosis, no clubbing, ROM intact, no edema. [] Neurologic: Alert and oriented X 3, moves extremities on request, has distal sensory,, no focal deficits noted. [] Psychologic: Affect anxious, judgement normal, mood normal. [] EKG: EKG: My interpretation EKG shows a sinus rhythm at 93 bpm. There is some bimodal P waves on the left. She has leftward axis with hypertrophic changes. No findings of acute STEMI or contralateral changes. Time of EKG is 622 hours [] Radiology/Procedures: Radiology/Procedures: [] Heart Score: C/O Chest Pain: N/A Risk Factors: Risk Factors: DM, Current or recent (<one month) smoker, HTN, HLP, family history of CAD, obesity. Risk Scores: Score 0 - 3: 2.5% MACE over next 6 weeks - Discharge Home Score 4 - 6: 20.3% MACE over next 6 weeks - Admit for Clinical Observation Score 7 - 10: 72.7% MACE over next 6 weeks - Early Invasive Strategies Course & Med Decision Making: Course & Med Decision Making Pertinent Labs and Imaging studies reviewed. (See chart for details) Patient push fluids. Patient follow-up primary care. Patient to take Eliquis 5 mg twice a day for 7 days. Patient self isolate. Patient use MDI 2 puffs 4 times a day. Noted patient's rapid Covid was negative on her testing. Impression: 1, Viral Syndrome 2. Dehydration 3. Nausea and Vomiting. [] Dragon Disclaimer: Dragon Disclaimer: This electronic medical record was generated, in whole or in part, using a voice recognition dictation system. Departure Departure: Referrals: SANDEE BUTLER MD (PCP) Scripts Ondansetron Hcl (ONDANSETRON HCL) 4 Mg Tablet 8 MG PO QIDPRN PRN for nv, #30 TAB Prov: MITCHEL SOSA MD 12/18/21 Apixaban (ELIQUIS) 5 Mg Tablet 5 MG PO BID for elevated for 7 Days, #14 TAB Prov: MITCHEL SOSA MD 12/18/21 Dragon Disclaimer This chart was dictated in whole or in part using Voice Recognition software in a busy, high-work load, and often noisy Emergency Department environment. It may contain unintended and wholly unrecognized errors or omissions. MITCHEL SOSA MD Dec 18, 2021 18:00
--- NOTE | 2021-12-18 18:26 | EKG ---
[address] [address] Test Date: 2021-12-18 Test Time: 18:22:54 Pat Name: BEN BILLINGS Department: Room: Gender: F Guest Request Runner: REUBEN : 1965 Requested By: MITCHEL SOSA Order Number: [id number] Reading MD: Kieran Dutton Measurements Intervals [place] Rate: 93 P: 31 NV: 198 QRS: -24 QRSD: 96 T: 52 QT: 360 QTc: 450 Interpretive Statements SINUS RHYTHM LEFT ATRIAL ABNORMALITY LEFTWARD AXIS LEFT VENTRICULAR HYPERTROPHY Electronically Signed On 12-19-2021 13:50:28 [employer] by Kieran Dutton
[2021-12-18] MEDS ORDERED: ONDANSETRON PF 4 MG/2 ML VIAL. IVP ONE (18:30)
[2021-12-18] MEDS ORDERED: FAMOTIDINE 20 MG/2 ML VIAL IVP ONE (18:30)
[2021-12-18] MEDS ORDERED: IV RINGERS SOLUTION,LACTATED 1,000 ML IV SCH (18:30)
[2021-12-18] MEDS ORDERED: KETOROLAC 30 MG/ML VIAL. IVP ONE (18:30)
--- NOTE | 2021-12-18 18:44 | RAD ---
EXAM: Abdomen series, 3 views. HISTORY: Pain. Nausea and vomiting. COMPARISON: 11/10/2021 FINDINGS: A frontal view of the chest and frontal upright and supine views of the abdomen are obtaine d. There is linear atelectasis or scarring within the lingula. There is no pleural effusion or pneumo thorax. The heart is normal in size. There is a right chest wall port catheter with the tip in the barnes perior vena cava. There are distended air-filled loops of bowel throughout the abdomen. There are cho lecystectomy clips. There is no free air. There is no transition point to suggest obstruction. There are anastomotic sutures within the left upper quadrant. IMPRESSION: 1. Prominent air-filled loops of bowel throughout the abdomen. There is no transition point to sugges t obstruction. 2. No acute pulmonary finding. Electronically signed by: Sarah Shafer MD (12/18/2021 6:41 PM) [facility]
[2021-12-18] MEDS ORDERED: ALBUTEROL SULFATE 8GM INHALER. INH ONE (19:00)
[2021-12-18 20:08] LABS: BASO % 1 % (0-3); EOS % 1 % (0-3); HEMATOCRIT 40.8 % (36.0-47.0); LYMPH # 1.6 x10^3/uL (1.0-4.8); LYMPH % 41 % (24-48); MEAN CORPUSCULAR HEMOGLOBIN 29 pg (25-35); MEAN CORPUSCULAR HGB CONC 32 g/dL (31-37); MEAN CORPUSCULAR VOLUME 91 fL (79-100); MONO # 0.3 x10^3/uL (0.0-1.1); MONO % 9 % (0-9); NEUT # 1.8 x10^3uL (1.8-7.7); NEUT % 49 % (31-73); PLATELET COUNT 228 x10^3/uL (140-400); RED CELL DISTRIBUTION WIDTH 14.2 % (11.5-14.5); WHITE BLOOD COUNT 3.8 x10^3/uL (4.0-11.0)
[2021-12-18 20:14] LABS: CALCIUM 8.7 mg/dL (8.5-10.1); CREATININE 1.3 mg/dL (0.6-1.0); GFR 51.6; POTASSIUM 3.5 mmol/L (3.5-5.1)
[2021-12-18 20:21] LABS: ALBUMIN 3.8 g/dL (3.4-5.0); DIRECT BILIRUBIN 0.3 mg/dL (0.0-0.2); TOTAL BILIRUBIN 0.9 mg/dL (0.2-1.0); TOTAL PROTEIN 7.3 g/dL (6.4-8.2)
[2021-12-18 20:30] LABS: BARBITURATES NEG (NEG); BENZODIAZEPINES POS (NEG); CANNABINOIDS NEG (NEG); COCAINE NEG (NEG); METHADONE NEG (NEG); OPIATES NEG (NEG); PHENCYCLIDINE NEG (NEG)
[2021-12-18 20:35] LABS: CLARITY,URINE CLOUDY; COLOR,URINE YELLOW; GLUCOSE,URINE NEG (NEG); NITRITE,URINE NEG (NEG)
[2021-12-18 20:36] LABS: BACTERIA,URINE MANY /HPF (0-FEW); SQUAMOUS EPITHELIAL CELL,UR MOD /LPF
[2021-12-18 20:36] LABS: AMPHETAMINE/METHAMPHETAMINE POS (NEG)
[2021-12-18] MEDS ORDERED: PROCHLORPERAZINE 10 MG/2 ML VIAL. IV ONE (21:00)
[2021-12-18] MEDS ORDERED: diphenhydrAMINE 50 MG/ML VIAL IVP ONE (21:00)
[2021-12-18] MEDS ORDERED: APIXABAN 5 MG TABLET. PO SCH (21:15)
[2021-12-18 21:51] LABS: INFLUENZA A PATIENT NEGATIVE (NEGATIVE); INFLUENZA B PATIENT NEGATIVE (NEGATIVE)
[2021-12-18] MEDS ORDERED: cloNIDine HCL 0.1 MG TABLET PO ONE (22:00)
[2021-12-18] MEDS ORDERED: cloNIDine TTS-2 1 PATCH PATCH TD ONE (22:00)
[2021-12-18] MEDS ORDERED: APIX5TAB3 PO (22:08)
[2021-12-18] MEDS ORDERED: ONDA-84 PO (22:09)
[2021-12-18] MEDS ORDERED: HEPARIN PF 500 UNIT/5 ML DISP.SYRIN. ONE (22:24)
[2021-12-18 22:30] VITALS: BP 132/82
[2021-12-18] MEDS ORDERED: HEPARIN PF 500 UNIT/5 ML DISP.SYRIN. IVP ONE (22:30)
== END 2021-12-18 22:35 | disposition home or self-care (01) ==
LOC: ER 17:38
DX: B34.9 Viral infection, unspecified (principal); E86.0 Dehydration; F31.9 Bipolar disorder, unspecified; I10 Essential (primary) hypertension; M06.9 Rheumatoid arthritis, unspecified; Z20.822 Contact with and (suspected) exposure to COVID-19; Z87.440 Personal history of urinary (tract) infections; Z88.5 Allergy status to narcotic agent; Z91.040 Latex allergy status; Z88.8 Allergy status to other drugs, medicaments and biological substances
CPT/HCPCS: 36415; 74022; 80048; 80076; 80307; 81001; 82550; 83690; 85025; 85379; 85610; 85730; 87086; 87428; 93005; 94640; 96361; 96374; 96375; 99285; J0780; J1200; J1885; J2405; J3490; J7120; 94664